=== PATIENT | female | born 1925 | race Caucasian/White ===

== ENCOUNTER 2016-08-04 18:03 | Inpatient (IN) | payer MEDICARE, OTHER ==
[~2016-08-04] VITALS: Ht 157.5 cm; Wt 61.2 kg
[2016-08-04 20:00] VITALS: BP 138/65; RESP 18
[2016-08-04 20:37] VITALS: Ht 157.5 cm; Wt 61.2 kg
[2016-08-04] MEDS ORDERED: DOCUSATE SODIUM 100 MG CAP PO PRN (21:00)
[2016-08-04] MEDS ORDERED: IBUPROFEN 200 MG TAB PO PRN (21:00)
[2016-08-04] MEDS ORDERED: POLYETHYLENE GLYCOL 17 GM PACKET PO PRN (21:00)
[2016-08-04] MEDS ORDERED: IPRATROPIUM (NEB) 0.5 MG/2.5 ML AMP INH PRN (21:00)
[2016-08-04] MEDS: GUAIFENESIN LA 600 MG TABSR PO SCH (21:22)
[2016-08-04] MEDS: POTASSIUM CHLORIDE (SR) 20 MEQ TAB PO SCH (21:22)
[2016-08-04] MEDS: DULOXETINE 30 MG CAP DR PO SCH (21:22)
[2016-08-04] MEDS: RANITIDINE 150 MG TAB PO SCH (21:22)
[2016-08-04] MEDS: ACETAMINOPHEN 325 MG TAB PO PRN (21:22)
[2016-08-04] MEDS: SOTALOL 80 MG TAB PO SCH (21:24)
[2016-08-04] MEDS: NYSTATIN 30 GM POWDER BTL TOP SCH (21:28)
[2016-08-04] MEDS: DICLOFENAC SODIUM 1% GEL 100 GM TUBE TP SCH (21:28)
[2016-08-04] MEDS ORDERED: GLUCAGON 1 MG INJ IM PRN (21:30)
[2016-08-04] MEDS ORDERED: GLUCOSE GEL 15 GRAM TUBE PO PRN ×2 (21:30)
[2016-08-04] MEDS ORDERED: DEXTROSE 50% 50 ML SYRINGE IV PRN ×2 (21:30)
[2016-08-04] MEDS ORDERED: GLUCOSE GEL 15 GRAM TUBE BUCCAL PRN (21:30)
[2016-08-04] MEDS: LEVALBUTEROL (NEB) 0.63 MG/3 ML AMP INH SCH (21:48)
[2016-08-04] MEDS: IPRATROPIUM (NEB) 0.5 MG/2.5 ML AMP INH SCH (21:49)
[2016-08-04] MEDS ORDERED: Insulin NOVOLOG SS MILD Algorithm (SS with meals and bedtime) SC SCH (22:00)
[2016-08-04] MEDS: PRIMIDONE 50 MG TAB PO SCH (22:20)
[2016-08-04] MEDS: CHLORHEXIDINE GLUCONATE 15 ML UD CUP MT SCH (22:20)
[2016-08-05] MEDS: IPRATROPIUM (NEB) 0.5 MG/2.5 ML AMP INH SCH ×4 (02:00→19:27)
[2016-08-05] MEDS: LEVALBUTEROL (NEB) 0.63 MG/3 ML AMP INH SCH ×4 (02:00→19:27)
[2016-08-05 03:29] VITALS: BP 138/65; RESP 19
[2016-08-05 04:25] LABS: ADD UMIC YES; URINE BILIRUBIN (Dip) NEGATIVE (NEGATIVE); URINE BLOOD (Dip) NEGATIVE (NEGATIVE); URINE COLOR YELLOW (YELLOW); URINE GLUCOSE (Dip) NEGATIVE (NEGATIVE); URINE KETONES (Dip) TRACE (NEGATIVE); URINE LEUKOCYTE ESTERASE (Dip) 2+ (NEGATIVE); URINE NITRITE (Dip) NEGATIVE (NEGATIVE); URINE TOTAL PROTEIN (Dip) NEGATIVE (NEGATIVE); URINE UROBILINOGEN (Dip) 0.2 E.U./dL (0.1-1.0)
[2016-08-05 04:39] LABS: BACTERIA,URINE MODERATE; SQUAMOUS EPITHELIAL CELL,UR FEW; URINE RBCS 0-2 /HPF (0)
[2016-08-05] MEDS: LEVOTHYROXINE 50 MCG TAB PO SCH (05:44)
[2016-08-05 05:48] VITALS: BP 131/62; PULSE 73
[2016-08-05] MEDS: FUROSEMIDE 40 MG TAB PO SCH (05:48)
[2016-08-05 06:48] LABS: ALBUMIN 3.1 g/dl (3.3-4.9)
[2016-08-05 06:49] LABS: POTASSIUM 4.8 mmol/L (3.5-5.1)
[2016-08-05 06:51] LABS: BILIRUBIN,INDIRECT 0.1 mg/dl (0-1.1); BILIRUBIN,TOTAL 0.1 mg/dl (0.2-1.3); CREATININE 0.76 mg/dl (0.44-1.00); TOTAL PROTEIN 6.2 g/dl (6.1-8.1)
[2016-08-05 06:52] LABS: CALCIUM 8.8 mg/dl (8.4-10.2)
[2016-08-05] MEDS: Insulin NOVOLOG SS MILD Algorithm (SS with meals and bedtime) SC SCH ×3 (07:05→17:57)
[2016-08-05 08:00] VITALS: BP 125/75; PULSE 78; RESP 18
[2016-08-05] MEDS: GLIMEPIRIDE 2 MG TAB PO SCH (08:29)
[2016-08-05] MEDS: ASPIRIN 81 MG TAB PO SCH (08:30)
[2016-08-05] MEDS: ASCORBIC ACID 500 MG TAB PO SCH (08:30)
[2016-08-05] MEDS: GUAIFENESIN LA 600 MG TABSR PO SCH ×2 (08:44→20:21)
[2016-08-05] MEDS: predniSONE 10 MG TAB PO SCH (08:44)
[2016-08-05] MEDS: PRIMIDONE 50 MG TAB PO SCH ×2 (08:45→20:21)
[2016-08-05] MEDS: CHLORHEXIDINE GLUCONATE 15 ML UD CUP MT SCH ×4 (08:45→20:24)
[2016-08-05] MEDS: PANTOPRAZOLE (EC) 40 MG TAB PO SCH (08:45)
[2016-08-05] MEDS: CYANOCOBALAMIN 500 MCG TAB PO SCH (08:45)
[2016-08-05] MEDS: POLYETHYLENE GLYCOL 17 GM PACKET PO SCH (09:00)
[2016-08-05 09:06] LABS: BASOPHILS % 0.3 % (0.0-2.0); EOSINOPHILS # 0.2 10^3/ul (0.0-0.5); EOSINOPHILS % 1.6 % (0.0-7.0); HEMATOCRIT 30.9 % (37.0-47.0); LYMPHOCYTES # 2.9 10^3/ul (0.8-2.9); LYMPHOCYTES % 23.7 % (15.0-51.0); MEAN CORPUSCULAR HEMOGLOBIN 26.3 pg (29.0-33.0); MEAN CORPUSCULAR HGB CONC 32.4 g/dl (32.0-37.0); MEAN CORPUSCULAR VOLUME 81.1 fl (82.0-101.0); MEAN PLATELET VOLUME 9.6 fl (7.4-10.4); MONOCYTE # 1.9 10^3/ul (0.3-0.9); MONOCYTES % 15.3 % (0.0-11.0); NEUTROPHIL # 7.3 10^3/ul (1.6-7.5); NEUTROPHILS % 59.1 % (39.0-77.0); PLATELET COUNT 298 10^3/UL (140-440); RED BLOOD COUNT 3.81 10^6/ul (4.20-5.40); RED CELL DISTRIBUTION WIDTH 20.1 % (11.5-14.5); UNCORRECTED WBC 12.3 10^3/ul (4.8-10.8); WHITE BLOOD COUNT 12.3 10^3/ul (4.8-10.8)
[2016-08-05] MEDS: CHOLECALCIFEROL 1,000 UNIT TAB PO SCH (09:07)
[2016-08-05] MEDS: POTASSIUM CHLORIDE (SR) 20 MEQ TAB PO SCH ×2 (09:08→20:20)
[2016-08-05] MEDS: SOTALOL 80 MG TAB PO SCH ×2 (09:08→20:21)
[2016-08-05 09:09] LABS: CONDITION 1; LH ANALYZER COMMENTS 1
[2016-08-05] MEDS: METOPROLOL (XL) 100 MG TAB PO SCH (09:09)
[2016-08-05] MEDS: ENOXAPARIN 40 MG/0.4 ML SYG SC SCH (09:14)
[2016-08-05] MEDS: NYSTATIN 30 GM POWDER BTL TOP SCH ×2 (09:15→20:21)
[2016-08-05] MEDS: DICLOFENAC SODIUM 1% GEL 100 GM TUBE TP SCH ×4 (09:16→20:21)
--- NOTE | 2016-08-05 13:06 | CONS ---
DATE OF ADMISSION: 08/04/2016 DATE OF CONSULTATION: 08/05/2016 TYPE OF CONSULTATION: Rehabilitation post-admission physician evaluation REHABILITATION IMPAIRMENT CATEGORY: Steroid myopathy. ACTIVE COMORBIDITIES: 1. Status post chronic obstructive pulmonary disease exacerbation and pneumonia, chronic bronchitis . 2. Degenerative joint disease. 3. Hypertension. 4. Paroxysmal atrial fibrillation. 5. Diabetes mellitus type 2. 6. Anemia of chronic disease. 7. Hypothyroidism. 8. Impairments in self-care and mobility. HISTORY OF PRESENT ILLNESS: The patient is a very pleasant 89-year-old female with a history of mu ltiple medical comorbidities, who was admitted with increasing shortness of breath. The patient not ed to have significant COPD exacerbation, and respiratory failure. She was transferred to [facility]. The patient was noted to have significant proximal muscle weakness and diagnose d with steroid-induced myopathy. The patient has had significant impairments in self-care and mobil ity as compared to baseline, and has been cleared to transfer to the rehabilitation unit for compreh ensive interdisciplinary rehab care. FUNCTIONAL HISTORY: Prior to recent events, she was independent in self-care tasks and mobility. C urrently, she requires minimal to moderate assist for self-care and mobility tasks. I have reviewed the preadmission screen and the patient's current functional status is consistent wi th the preadmission screen. SOCIAL HISTORY: The patient reports living at home with 24-hour caregiver assistance. PAST MEDICAL HISTORY: 1. COPD. 2. Hypothyroidism. 3. Paroxysmal atrial fibrillation. 4. Diabetes mellitus. 5. Hypertension. 6. History of permanent pacemaker placement. CURRENT MEDICATIONS: 1. Vitamin C. 2. Aspirin 81 mg p.o. daily. 3. Zithromax 500 p.o. q. Wednesday, , Wednesday. 4. Vitamin D. 5. Vitamin B12. 6. Voltaren topically. 7. Colace. 8. Cymbalta 30 mg p.o. at bedtime. 9. Lovenox 40 mg subcutaneous daily. 10. Lasix 40 mg p.o. daily. 11. Amaryl 1 mg p.o. q.a.m. 12. Motrin p.r.n. 13. Insulin sliding scale. 14. Levalbuterol inhaler. 15. Synthroid 50 mcg p.o. daily. 16. Toprol-XL 100 mg p.o. daily. 17. Protonix 40 mg p.o. q.a.m. 18. MiraLax p.r.n. 19. Potassium chloride 20 mEq p.o. b.i.d. 20. Prednisone 10 mg p.o. daily. 21. Primidone 50 mg p.o. b.i.d. 22. Rifampin 600 mg p.o. q. Wednesday, , Wednesday. 23. Betapace 80 mg p.o. q.12h. ALLERGIES: CODEINE. PHYSICAL EXAMINATION: VITAL SIGNS: The patient is currently afebrile with stable vital signs. HEENT: The extraocular motions appear intact. The oropharynx is clear. NECK: Supple. LUNGS: Clear anteriorly. CARDIAC: S1, S2. ABDOMEN: Soft, nontender, positive bowel sounds. NEUROLOGIC: She is awake and alert. She is oriented to person, hospital and date. She will follow simple 1-step commands. She demonstrates antigravity strength in bilateral upper extremity and low er extremity, but notable weakness in proximal muscles. She does have impaired dynamic balance. PLAN: The patient has been admitted for comprehensive interdisciplinary acute rehab and is anticipa genaro to tolerate 3 hours of daily therapy in divided doses for at least 5/7 days a week. The treatme nt plan will include: 1. Physical therapy to focus on bed mobility, transfers, and household ambulation with the goal of having the patient reach a standby assist level. 2. Occupational therapy to focus on hygiene, grooming, dressing, bathing, and toileting activities with the goal of having the patient reach standby assist level. 3. Rehabilitation nursing for carryover of therapeutic interventions, the goal of continent of amanda l and bladder, and the goal of patient and family and caregiver education with regards to the aforem entioned issues. ESTIMATED LENGTH OF STAY: 14 days. DISPOSITION GOAL: Home with supervision. REHABILITATION BARRIER: Weakness. INTERVENTION FOR BARRIER: Interdisciplinary approach. I acknowledge that I performed a full physical examination on this patient within 24 hours of admiss ion to the rehabilitation unit. I believe the patient is a good candidate for comprehensive interdi sciplinary rehab care and is anticipated to make reasonable goals in a reasonable period of time as outlined above. Dictated By: REED BAEZ/BENJAMIN Conf#: [id number] [facility]#: [id number]
--- NOTE | 2016-08-05 14:35 | HP ---
DATE OF ADMISSION: 08/04/2016 CHIEF COMPLAINT: Respiratory failure, weakness. 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 The patient was then subsequently transferred to [facility] for respiratory care. During her hospital course the patient received IV steroids and antibiotic the rapy for her MAC. The patient, however, developed muscle weakness and steroid-induced myopathy. As a result, the patient after being stabilized at [facility] was transferred to [facility] acute rehab for continued care. Upon my evaluation of patient at this time, she is currently stable. She denies any fevers, chills, nausea, vomiting. She denies any shortness of breath. The patient otherwise is in no acute distre ss. PAST MEDICAL HISTORY: As stated above, history of COPD exacerbation, history of hypersensitive pneu monitis, history of hypothyroidism, history of paroxysmal AFib, history of arrhythmia, status post p acemaker. PAST SURGICAL HISTORY: Status post pacemaker placement. ALLERGIES: THE PATIENT HAS MULTIPLE DRUG ALLERGIES. PLEASE SEE LIST. MEDICATIONS: Patient medications have been reviewed and reconciled. FAMILY HISTORY: No family history of kidney disease or heart disease. SOCIAL HISTORY: Does not drink, smoke or do drugs. REVIEW OF SYSTEMS: A 14-point review of systems was conducted. Pertinent positives stated in HPI, otherwise negative. PHYSICAL EXAMINATION: VITAL SIGNS: Blood pressure is 125/75, respiration 18, pulse 78, temperature 98.1. HEENT: Head is normocephalic. Pupils are reactive to light. NECK: Supple. HEART: Regular rate. LUNGS: Show diminished breath sounds at base. ABDOMEN: Soft, nontender to palpation. No rebound or guarding. EXTREMITIES: Negative for clubbing, cyanosis, no edema. DERMATOLOGIC: No rashes. MUSCULOSKELETAL: No joint effusions. NEUROLOGIC: General weakness, no obvious focal deficits. LABORATORY DATA: Shows sodium 137, potassium 4.8, chloride 98, BUN 27, creatinine 0.76. White coun t 12.3, hemoglobin 10.0, hematocrit 30.9, platelet count 298. ASSESSMENT AND PLAN: 1. Acute respiratory failure secondary to chronic obstructive pulmonary disease exacerbation. The patient is currently doing well, stable on 2 liters nasal cannula. Continue current treatment plan. Continue supplemental oxygen. Continue nebulizer therapy. Continue prednisone wean off slowly. 2. Mycobacterium avium infection with chronic bronchitis. Currently stable. Continue medical amara gement with . Continue primidone. Continue azithromycin. Continue ethambutol. 3. Diabetes. Continue Accu-Cheks, insulin sliding scale. Continue Amaryl. 4. Hypertension. Continue current blood pressure regimen. 5. Anemia. Continue to monitor H and H levels. 6. Paroxysmal atrial fibrillation, currently paced. Continue current medical management. 7. General debility. Continue PT, OT. 8. Steroid induced myopathy. Continue physical therapy. Continue to wean down steroids. 9. Depression. Continue Cymbalta. 10. History of diastolic heart failure. The patient is clinically stable. Continue medical manage ment. 11. Hypothyroidism. Continue Synthroid. 12. Gastrointestinal and deep venous thrombosis prophylaxis. Continue proton pump inhibitor and Lo venox. 13. Leukocytosis, likely due to steroids. Continue to monitor. Please note I spent up to 30 minutes of face to face time with this patient, discussing code status. The patient is FULL CODE. Dictated By: BAILEY JEAN/BENJAMIN Conf#: [id number] DID#: [id number]
[2016-08-05 20:00] VITALS: BP 126/54; RESP 18
[2016-08-05] MEDS: DULOXETINE 30 MG CAP DR PO SCH (20:20)
[2016-08-05] MEDS: RANITIDINE 150 MG TAB PO SCH (20:21)
[2016-08-05] MEDS: ACETAMINOPHEN 325 MG TAB PO PRN (20:31)
[2016-08-06] MEDS: IPRATROPIUM (NEB) 0.5 MG/2.5 ML AMP INH SCH ×4 (01:25→20:39)
[2016-08-06] MEDS: LEVALBUTEROL (NEB) 0.63 MG/3 ML AMP INH SCH ×4 (01:25→20:39)
[2016-08-06] MEDS: LEVOTHYROXINE 50 MCG TAB PO SCH (05:59)
[2016-08-06] MEDS: FUROSEMIDE 40 MG TAB PO SCH (06:00)
[2016-08-06 06:01] VITALS: BP 120/59; PULSE 79
[2016-08-06] MEDS: Insulin NOVOLOG SS MILD Algorithm (SS with meals and bedtime) SC SCH ×3 (07:05→17:05)
[2016-08-06 07:30] VITALS: BP 110/54; RESP 20
[2016-08-06 08:14] LABS: BASOPHILS % 0.4 % (0.0-2.0); EOSINOPHILS # 0.2 10^3/ul (0.0-0.5); EOSINOPHILS % 2.3 % (0.0-7.0); HEMOGLOBIN 9.9 g/dl (12.0-16.0); LYMPHOCYTES # 2.7 10^3/ul (0.8-2.9); LYMPHOCYTES % 27.3 % (15.0-51.0); MEAN CORPUSCULAR HEMOGLOBIN 25.4 pg (29.0-33.0); MEAN CORPUSCULAR HGB CONC 30.9 g/dl (32.0-37.0); MEAN CORPUSCULAR VOLUME 82.1 fl (82.0-101.0); MEAN PLATELET VOLUME 10.9 fl (7.4-10.4); MONOCYTE # 1.5 10^3/ul (0.3-0.9); MONOCYTES % 15.4 % (0.0-11.0); NEUTROPHIL # 5.3 10^3/ul (1.6-7.5); NEUTROPHILS % 53.2 % (39.0-77.0); PLATELET COUNT 306 10^3/UL (140-415); RED CELL DISTRIBUTION WIDTH 19.4 % (11.5-14.5); WHITE BLOOD COUNT 9.9 10^3/ul (4.8-10.8)
[2016-08-06 08:23] LABS: POTASSIUM 4.2 mmol/L (3.5-5.1)
[2016-08-06 08:26] LABS: CREATININE 0.79 mg/dl (0.44-1.00); PHOSPHORUS 4.2 mg/dl (2.5-4.9)
[2016-08-06 08:27] LABS: MAGNESIUM 1.8 mg/dl (1.7-2.5)
[2016-08-06] MEDS: POTASSIUM CHLORIDE (SR) 20 MEQ TAB PO SCH ×2 (08:31→20:25)
[2016-08-06] MEDS: ASCORBIC ACID 500 MG TAB PO SCH (08:31)
[2016-08-06] MEDS: GLIMEPIRIDE 2 MG TAB PO SCH (08:33)
[2016-08-06] MEDS: ETHAMBUTOL 400 MG TAB PO SCH (08:33)
[2016-08-06] MEDS: RIFAMPIN 300 MG CAP PO SCH (08:34)
[2016-08-06] MEDS: SOTALOL 80 MG TAB PO SCH ×2 (08:35→20:24)
[2016-08-06] MEDS: PRIMIDONE 50 MG TAB PO SCH ×2 (08:35→20:24)
[2016-08-06] MEDS: AZITHROMYCIN 250 MG TAB PO SCH (08:36)
[2016-08-06] MEDS: GUAIFENESIN LA 600 MG TABSR PO SCH ×2 (08:36→20:24)
[2016-08-06] MEDS: CYANOCOBALAMIN 500 MCG TAB PO SCH (08:36)
[2016-08-06] MEDS: PANTOPRAZOLE (EC) 40 MG TAB PO SCH (08:37)
[2016-08-06] MEDS: predniSONE 10 MG TAB PO SCH (08:37)
[2016-08-06] MEDS: POLYETHYLENE GLYCOL 17 GM PACKET PO SCH (08:37)
[2016-08-06] MEDS: NYSTATIN 30 GM POWDER BTL TOP SCH ×2 (08:37→20:25)
[2016-08-06] MEDS: CHOLECALCIFEROL 1,000 UNIT TAB PO SCH (08:37)
[2016-08-06] MEDS: ASPIRIN 81 MG TAB PO SCH (08:38)
[2016-08-06] MEDS: METOPROLOL (XL) 100 MG TAB PO SCH (08:39)
[2016-08-06] MEDS: DICLOFENAC SODIUM 1% GEL 100 GM TUBE TP SCH ×4 (08:41→20:25)
[2016-08-06] MEDS: ENOXAPARIN 40 MG/0.4 ML SYG SC SCH (08:50)
[2016-08-06] MEDS: CHLORHEXIDINE GLUCONATE 15 ML UD CUP MT SCH ×4 (08:52→20:30)
--- NOTE | 2016-08-06 11:03 | PN ---
DATE: 08/06/2016 SUBJECTIVE: The patient is stable, no acute events overnight. No fevers, chills, nausea, vomiting, no shortness of breath. OBJECTIVE: VITAL SIGNS: Blood pressure is 120/59, respiration 18, pulse 79, temperature 98.7. HEENT: Head is normocephalic. NECK: Supple. HEART: Regular rate. LUNGS: Show diminished breath sounds at the base. ABDOMEN: Soft, nontender to palpation. No rebound or guarding. EXTREMITIES: Negative for clubbing, cyanosis, no edema. DERMATOLOGIC: No rashes. MUSCULOSKELETAL: No joint effusions. NEUROLOGIC: No change in exam. MEDICATIONS: The patient's medications have been reviewed. LABORATORY DATA: Shows a white count of 9.9, hemoglobin 9.9, hematocrit 32.0, platelet count is 306 . Sodium 137, potassium 4.2, BUN 23, creatinine 0.79. ASSESSMENT AND PLAN: 1. Acute respiratory failure secondary to chronic obstructive pulmonary disease exacerbation. The patient is currently stable. Continue current medical management. Continue nebulizers, nasal cannu la, supplemental oxygen. 2. Mycobacterium avium infection and chronic bronchitis. The patient currently stable. Continue c urrent medical management with ethambutol, continue Primidone, continue azithromycin, continue rifam pin. Will place an ID consult for evaluation. 3. Diabetes. Continue Accu-Cheks, insulin sliding scale. Continue Amaryl. 4. Hypertension. Continue current blood pressure regimen. 5. Anemia. Continue to monitor hemoglobin and hematocrit levels. 6. Paroxysmal atrial fibrillation, currently sinus rhythm. Continue medical management. 7. Steroid-induced myopathy. Continue physical therapy. Continue to wean off steroids. 8. Depression. Continue Cymbalta. 9. History of diastolic heart failure, currently stable. Continue medical management. 10. Hypothyroidism. Continue Synthroid. 11. Leukocytosis, resolved. 12. General debility. Continue PT, OT. 13. Gastrointestinal and deep venous thrombosis prophylaxis. Continue proton pump inhibitor and Lo venox. Dictated By: BAILEY JEAN/BENJAMIN Conf#: [id number] DID#: [id number]
--- NOTE | 2016-08-06 13:40 | CONS ---
Date/Time of Note Date/Time of Note DATE: 08/06/16 TIME: 13:39 Consult Date/Type/Reason Admit Date/Time Aug 04, 2016 at 18:33 Initial Consult Date Subjective No new complaints Objective pulm- cta min assist ambulation Vital Signs Date Time Temp Pulse Resp B/P Pulse Ox O2 Delivery O2 Flow Rate FiO2 08/06/16 09:00 70 17 96 Nasal Cannula 2.0 08/06/16 07:30 97.8 110/54 Intake and Output 08/05/16 08/05/16 08/06/16 15:00 23:00 07:00 Intake Total 500 ml 400 ml Balance 500 ml 400 ml Results/Medications Result Diagram: 08/06/16 0718 08/06/16 0715 Results 24 hrs Laboratory Tests Test 08/05/16 17:10 08/05/16 20:29 08/06/16 07:15 08/06/16 07:18 Bedside Glucose 155 183 Anion Gap 14 Blood Urea Nitrogen 23 H Calcium Level 9.0 Carbon Dioxide Level 30 Chloride Level 97 Creatinine 0.79 Glucose Level 121 Magnesium Level 1.8 Phosphorus Level 4.2 Potassium Level 4.2 Sodium Level 137 Basophils # 0.0 Basophils % 0.4 Eosinophils # 0.2 Eosinophils % 2.3 Hematocrit 32.0 L Hemoglobin 9.9 L Lymphocytes # 2.7 Lymphocytes % 27.3 Mean Corpuscular Hemoglobin 25.4 L Mean Corpuscular Hemoglobin Concent 30.9 L Mean Corpuscular Volume 82.1 Mean Platelet Volume 10.9 H Monocytes # 1.5 H Monocytes % 15.4 H Neutrophils # 5.3 Neutrophils % 53.2 Nucleated Red Blood Cells # 0.0 Nucleated Red Blood Cells % 0.0 Platelet Count 306 Red Blood Count 3.90 L Red Cell Distribution Width 19.4 H White Blood Count 9.9 Test 08/06/16 07:46 08/06/16 12:09 Bedside Glucose 176 173 Medications Current Medications Acetaminophen (Tylenol Tab) 650 mg Q6H PRN PO PAIN AND OR ELEVATED TEMP Last administered on 08/05/16 20:31; Admin Dose 650 MG; Start 08/04/16 at 21:00 Ascorbic Acid (Vitamin C) 1,000 mg DAILY PO Last administered on 08/06/16 08: 31; Admin Dose 1,000 MG; Start 08/05/16 at 09:00 Aspirin (Aspirin) 81 mg DAILY PO Last administered on 08/06/16 08:38; Admin Dose 81 MG; Start 08/05/16 at 09:00 Azithromycin (Zithromax) 500 mg TuThSa@09 PO Last administered on 08/06/16 08: 36; Admin Dose 500 MG; Start 08/06/16 at 09:00 Chlorhexidine Gluconate (Peridex) 15 ml QID MT Last administered on 08/06/16 12:29; Admin Dose 15 ML; Start 08/04/16 at 21:00 Cholecalciferol (Vitamin D) 1,000 unit DAILY PO Last administered on 08/06/16 08:37; Admin Dose 1,000 UNIT; Start 08/05/16 at 09:00 Cyanocobalamin (Vitamin B12) 1,000 mcg DAILY PO Last administered on 08/06/16 08:36; Admin Dose 1,000 MCG; Start 08/05/16 at 09:00 Diclofenac Sodium (Voltaren 1% Gel) 1 gm QID TP Last administered on 08/06/16 12:29; Admin Dose 1 GM; Start 08/04/16 at 21:00 Docusate Sodium (Colace) 100 mg Q8H PRN PO CONSTIPATION; Start 08/04/16 at 21: 00 Duloxetine HCl (Cymbalta) 30 mg HS PO Last administered on 08/05/16 20:20; Admin Dose 30 MG; Start 08/04/16 at 21:00 Enoxaparin Sodium (Lovenox) 40 mg DAILY SC Last administered on 08/06/16 08:50 ; Admin Dose 40 MG; Start 08/05/16 at 09:00 Ethambutol HCl (Myambutol) 1,200 mg TuThSa@09 PO Last administered on 08:33; Admin Dose 1,200 MG; Start 08/06/16 at 09:00 Furosemide (Lasix) 40 mg DAILY@06 PO Last administered on 08/06/16 06:00; Admin Dose 40 MG; Start 08/05/16 at 06:00 Guaifenesin (Mucinex) 1,200 mg BID PO Last administered on 08/06/16 08:36; Admin Dose 1,200 MG; Start 08/04/16 at 21:00 Ibuprofen (Motrin) 200 mg HS PRN PO ARTHRITIS PAIN; Start 08/04/16 at 21:00 Levothyroxine Sodium (Synthroid) 50 mcg DAILY@06 PO Last administered on 05:59; Admin Dose 50 MCG; Start 08/05/16 at 06:00 Metoprolol Succinate (Toprol Xl) 100 mg DAILY PO Last administered on 09:09; Admin Dose 100 MG; Start 08/05/16 at 09:00 Nystatin (Nystatin Powder) 1 applic BID TOP Last administered on 08/06/16 08: 37; Admin Dose 1 APPLIC; Start 08/04/16 at 21:00 Polyethylene Glycol (Miralax) 17 gm DAILY PO Last administered on 08/06/16 08: 37; Admin Dose 17 GM; Start 08/05/16 at 09:00 Polyethylene Glycol (Miralax) 17 gm DAILY PRN PO CONSTIPATION; Start 08/04/16 at 21:00 Potassium Chloride (Klor-Con 20) 20 meq BID PO Last administered on 08/06/16 08:31; Admin Dose 20 MEQ; Start 08/04/16 at 21:00 Prednisone (Prednisone) 10 mg DAILY PO Last administered on 08/06/16 08:37; Admin Dose 10 MG; Start 08/05/16 at 09:00 Primidone (Mysoline) 50 mg BID PO Last administered on 08/06/16 08:35; Admin Dose 50 MG; Start 08/04/16 at 22:00 Ranitidine HCl (Zantac) 150 mg HS PO Last administered on 08/05/16 20:21; Admin Dose 150 MG; Start 08/04/16 at 21:00 Sotalol HCl (Betapace) 80 mg Q12 PO Last administered on 08/05/16 20:21; Admin Dose 80 MG; Start 08/04/16 at 21:00 Al Hydrox/Mg Hydrox/Simethicone (Mag-Al Plus) 30 ml Q4H PRN PO GASTROINTESTINAL UPSET; Start 08/04/16 at 21:00 Miscellaneous Information 1 ea NOTE XX ; Start 08/04/16 at 21:30 Glucose (Glutose) 15 gm Q15M PRN PO DECREASED GLUCOSE; Start 08/04/16 at 21:30 Glucose (Glutose) 22.5 gm Q15M PRN PO DECREASED GLUCOSE; Start 08/04/16 at 21: 30 Dextrose (D50w Syringe) 25 ml Q15M PRN IV DECREASED GLUCOSE; Start 08/04/16 at 21:30 Dextrose (D50w Syringe) 50 ml Q15M PRN IV DECREASED GLUCOSE; Start 08/04/16 at 21:30 Glucagon (Glucagen) 1 mg Q15M PRN IM DECREASED GLUCOSE; Start 08/04/16 at 21:30 Glucose (Glutose) 15 gm Q15M PRN BUCCAL DECREASED GLUCOSE; Start 08/04/16 at 21 :30 Rifampin (Rifampin) 600 mg TuThSa PO Last administered on 08/06/16t 08:34; Admin Dose 600 MG; Start 08/06/16 at 09:00 Assessment/Plan Additional Assessment/Plan Rehab- Steroid myopathy. Increase activities as tolerated Status post chronic obstructive pulmonary disease exacerbation and pneumonia, chronic bronchitis. Degenerative joint disease. Hypertension. Paroxysmal atrial fibrillation-cardiology follow up Diabetes mellitus type 2. Anemia of chronic disease. Hypothyroidism. REED FERNANDES MD Aug 06, 2016 13:40
[2016-08-06 20:00] VITALS: BP 104/55; RESP 20
[2016-08-06] MEDS: RANITIDINE 150 MG TAB PO SCH (20:24)
[2016-08-06] MEDS: DULOXETINE 30 MG CAP DR PO SCH (20:24)
[2016-08-06] MEDS: ACETAMINOPHEN 325 MG TAB PO PRN (20:24)
[2016-08-07] MEDS: LEVALBUTEROL (NEB) 0.63 MG/3 ML AMP INH SCH ×4 (02:00→20:14)
[2016-08-07] MEDS: IPRATROPIUM (NEB) 0.5 MG/2.5 ML AMP INH SCH ×4 (02:00→20:14)
[2016-08-07] MEDS: PANTOPRAZOLE (EC) 40 MG TAB PO SCH (06:09)
[2016-08-07] MEDS: LEVOTHYROXINE 50 MCG TAB PO SCH (06:09)
[2016-08-07] MEDS: FUROSEMIDE 40 MG TAB PO SCH (06:09)
[2016-08-07] MEDS: Insulin NOVOLOG SS MILD Algorithm (SS with meals and bedtime) SC SCH ×3 (07:05→17:42)
[2016-08-07 07:30] VITALS: BP 112/90; RESP 20
[2016-08-07] MEDS: NYSTATIN 30 GM POWDER BTL TOP SCH ×2 (08:40→20:42)
[2016-08-07] MEDS: POLYETHYLENE GLYCOL 17 GM PACKET PO SCH (08:40)
[2016-08-07] MEDS: DICLOFENAC SODIUM 1% GEL 100 GM TUBE TP SCH ×4 (08:40→20:42)
[2016-08-07] MEDS: ASPIRIN 81 MG TAB PO SCH (08:41)
[2016-08-07] MEDS: CHLORHEXIDINE GLUCONATE 15 ML UD CUP MT SCH ×4 (08:41→20:42)
[2016-08-07] MEDS: POTASSIUM CHLORIDE (SR) 20 MEQ TAB PO SCH ×2 (08:42→20:41)
[2016-08-07] MEDS: ASCORBIC ACID 500 MG TAB PO SCH (08:42)
[2016-08-07] MEDS: GLIMEPIRIDE 2 MG TAB PO SCH (08:42)
[2016-08-07] MEDS: CYANOCOBALAMIN 500 MCG TAB PO SCH (08:42)
[2016-08-07] MEDS: predniSONE 10 MG TAB PO SCH (08:42)
[2016-08-07] MEDS: PRIMIDONE 50 MG TAB PO SCH ×2 (08:43→20:41)
[2016-08-07] MEDS: CHOLECALCIFEROL 1,000 UNIT TAB PO SCH (08:43)
[2016-08-07] MEDS: GUAIFENESIN LA 600 MG TABSR PO SCH ×2 (08:43→20:41)
[2016-08-07] MEDS: ENOXAPARIN 40 MG/0.4 ML SYG SC SCH (08:44)
[2016-08-07] MEDS: SOTALOL 80 MG TAB PO SCH ×2 (08:45→20:41)
[2016-08-07] MEDS: METOPROLOL (XL) 100 MG TAB PO SCH (08:46)
--- NOTE | 2016-08-07 10:50 | PN ---
DATE: 08/07/2016 SUBJECTIVE: The patient is stable, no acute events overnight. No fevers, chills, nausea, vomiting. No shortness breath. OBJECTIVE: VITAL SIGNS: Blood pressure 104/55, respirations 20, pulse 74, temperature 99.2. HEENT: Head is normocephalic. NECK: Supple. HEART: Regular rate. LUNGS: Show diminished breath sounds at the bases. ABDOMEN: Soft, nontender to palpation. No rebound or guarding. EXTREMITIES: Negative for clubbing, cyanosis. No edema. DERMATOLOGIC: No rashes. MUSCULOSKELETAL: No joint effusions. NEUROLOGIC: No change in exam. MEDICATIONS: The patient's medications have been reviewed. LABORATORY DATA: Has been reviewed. ASSESSMENT AND PLAN: 1. Acute respiratory failure secondary to chronic obstructive pulmonary disease exacerbation. The patient is currently stable. Continue medical management. 2. Mycobacterium avium infection and chronic bronchitis. The patient is currently stable. Continu e current medical management. We will place an ID consult for evaluation. 3. Diabetes. Continue Accu-Cheks and sliding scale. 4. Hypertension. Continue current blood pressure regimen. 5. Anemia. Continue to monitor hemoglobin and hematocrit levels. 6. History of paroxysmal atrial fibrillation, status post pacemaker. We will place a cardiology co nsult to evaluate underlying pacemaker as patient feels there have been fluctuations and skipped natalia ts. 7. Steroid-induced myopathy. Continue physical therapy. 8. Depression. Continue Cymbalta. 9. History of diastolic heart failure, currently stable. Continue medical management. 10. Hypothyroidism. Continue Synthroid. 11. General debility. Continue PT, OT. 12. Gastrointestinal and deep venous thrombosis prophylaxis. Continue proton pump inhibitor and Lo venox. Dictated By: BAILEY JEAN/BENJAMIN Conf#: [id number] DID#: [id number]
--- NOTE | 2016-08-07 11:43 | CONS ---
Date/Time of Note Date/Time of Note DATE: 08/07/16 TIME: 11:39 Consult Date/Type/Reason Admit Date/Time Aug 04, 2016 at 18:33 Subjective Reports feeling better Objective pulm-cta abd-soft,nt min/cga ambulation-80 feet Vital Signs Date Time Temp Pulse Resp B/P Pulse Ox O2 Delivery O2 Flow Rate FiO2 08/07/16 08:00 Nasal Cannula 2.0 08/07/16 07:56 70 20 95 08/07/16 07:30 98.5 112/90 Intake and Output 08/06/16 08/06/16 08/07/16 15:00 23:00 07:00 Intake Total 360 ml 240 ml Balance 360 ml 240 ml Results/Medications Result Diagram: 08/06/1618 08/06/1615 Results 24 hrs Laboratory Tests Test 08/06/16 12:09 08/06/16 17:32 08/07/16 07:37 Bedside Glucose 173 79 117 Medications Current Medications Acetaminophen (Tylenol Tab) 650 mg Q6H PRN PO PAIN AND OR ELEVATED TEMP Last administered on 08/06/16 20:24; Admin Dose 650 MG; Start 08/04/16 at 21:00 Ascorbic Acid (Vitamin C) 1,000 mg DAILY PO Last administered on 08/07/16 08: 42; Admin Dose 1,000 MG; Start 08/05/16 at 09:00 Aspirin (Aspirin) 81 mg DAILY PO Last administered on 08/07/16 08:41; Admin Dose 81 MG; Start 08/05/16 at 09:00 Azithromycin (Zithromax) 500 mg TuThSa@09 PO Last administered on 08/06/16 08: 36; Admin Dose 500 MG; Start 08/06/16 at 09:00 Chlorhexidine Gluconate (Peridex) 15 ml QID MT Last administered on 08/07/16 08:41; Admin Dose 15 ML; Start 08/04/16 at 21:00 Cholecalciferol (Vitamin D) 1,000 unit DAILY PO Last administered on 08/07/16 08:43; Admin Dose 1,000 UNIT; Start 08/05/16 at 09:00 Cyanocobalamin (Vitamin B12) 1,000 mcg DAILY PO Last administered on 08/07/16 08:42; Admin Dose 1,000 MCG; Start 08/05/16 at 09:00 Diclofenac Sodium (Voltaren 1% Gel) 1 gm QID TP Last administered on 08/07/16 08:40; Admin Dose 1 GM; Start 08/04/16 at 21:00 Docusate Sodium (Colace) 100 mg Q8H PRN PO CONSTIPATION; Start 08/04/16 at 21: 00 Duloxetine HCl (Cymbalta) 30 mg HS PO Last administered on 08/06/16 20:24; Admin Dose 30 MG; Start 08/04/16 at 21:00 Enoxaparin Sodium (Lovenox) 40 mg DAILY SC Last administered on 08/07/16 08:44 ; Admin Dose 40 MG; Start 08/05/16 at 09:00 Ethambutol HCl (Myambutol) 1,200 mg TuThSa@09 PO Last administered on 08:33; Admin Dose 1,200 MG; Start 08/06/16 at 09:00 Furosemide (Lasix) 40 mg DAILY@06 PO Last administered on 08/07/16 06:09; Admin Dose 40 MG; Start 08/05/16 at 06:00 Guaifenesin (Mucinex) 1,200 mg BID PO Last administered on 08/07/16 08:43; Admin Dose 1,200 MG; Start 08/04/16 at 21:00 Ibuprofen (Motrin) 200 mg HS PRN PO ARTHRITIS PAIN; Start 08/04/16 at 21:00 Levothyroxine Sodium (Synthroid) 50 mcg DAILY@06 PO Last administered on 06:09; Admin Dose 50 MCG; Start 08/05/16 at 06:00 Metoprolol Succinate (Toprol Xl) 100 mg DAILY PO Last administered on 09:09; Admin Dose 100 MG; Start 08/05/16 at 09:00 Nystatin (Nystatin Powder) 1 applic BID TOP Last administered on 08/07/16 08: 40; Admin Dose 1 APPLIC; Start 08/04/16 at 21:00 Polyethylene Glycol (Miralax) 17 gm DAILY PO Last administered on 08/07/16 08: 40; Admin Dose 17 GM; Start 08/05/16 at 09:00 Polyethylene Glycol (Miralax) 17 gm DAILY PRN PO CONSTIPATION; Start 08/04/16 at 21:00 Potassium Chloride (Klor-Con 20) 20 meq BID PO Last administered on 08/07/16 08:42; Admin Dose 20 MEQ; Start 08/04/16 at 21:00 Prednisone (Prednisone) 10 mg DAILY PO Last administered on 08/07/16 08:42; Admin Dose 10 MG; Start 08/05/16 at 09:00 Primidone (Mysoline) 50 mg BID PO Last administered on 08/07/16 08:43; Admin Dose 50 MG; Start 08/04/16 at 22:00 Ranitidine HCl (Zantac) 150 mg HS PO Last administered on 08/06/16 20:24; Admin Dose 150 MG; Start 08/04/16 at 21:00 Sotalol HCl (Betapace) 80 mg Q12 PO Last administered on 08/06/16 20:24; Admin Dose 80 MG; Start 08/04/16 at 21:00 Al Hydrox/Mg Hydrox/Simethicone (Mag-Al Plus) 30 ml Q4H PRN PO GASTROINTESTINAL UPSET; Start 08/04/16 at 21:00 Miscellaneous Information 1 ea NOTE XX ; Start 08/04/16 at 21:30 Glucose (Glutose) 15 gm Q15M PRN PO DECREASED GLUCOSE; Start 08/04/16 at 21:30 Glucose (Glutose) 22.5 gm Q15M PRN PO DECREASED GLUCOSE; Start 08/04/16 at 21: 30 Dextrose (D50w Syringe) 25 ml Q15M PRN IV DECREASED GLUCOSE; Start 08/04/16 at 21:30 Dextrose (D50w Syringe) 50 ml Q15M PRN IV DECREASED GLUCOSE; Start 08/04/16 at 21:30 Glucagon (Glucagen) 1 mg Q15M PRN IM DECREASED GLUCOSE; Start 08/04/16 at 21:30 Glucose (Glutose) 15 gm Q15M PRN BUCCAL DECREASED GLUCOSE; Start 08/04/16 at 21 :30 Rifampin (Rifampin) 600 mg TuThSa PO Last administered on 08/06/16 08:34; Admin Dose 600 MG; Start 08/06/16 at 09:00 Assessment/Plan Additional Assessment/Plan Rehab- Steroid myopathy. Patient making steady progress with rehab program Status post chronic obstructive pulmonary disease exacerbation and pneumonia, chronic bronchitis. Degenerative joint disease. Hypertension. Paroxysmal atrial fibrillation-cardiology follow up Diabetes mellitus type 2. Anemia of chronic disease. Hypothyroidism. REED FERNANDES MD Aug 07, 2016 11:43
--- NOTE | 2016-08-07 14:09 | CONS ---
DATE OF ADMISSION: 08/04/2016 DATE OF CONSULTATION: 08/07/2016 TYPE OF CONSULTATION: Infectious Disease. REASON FOR CONSULTATION: Antibiotic management. HISTORY OF PRESENT ILLNESS: Parisa Romero is an 89-year-old female who was admitted to [facility] with respiratory failure and weakness. Her past problems include: 1. COPD. 2. Hypersensitivity pneumonitis. 3. Hypothyroidism. 4. Paroxysmal atrial fibrillation. 5. History of pacemaker placement. 6. Hypertension. The patient was diagnosed with pulmonary Mycobacterium avium intracellulare complex [facility]. She was transferred to [facility]. She received IV steroids and antibiotic th erapy for her MAC. She developed muscle weakness and steroid-induced myopathy. She therefore was t ransferred to [facility] for continued care. PAST MEDICAL HISTORY: Operations as outlined. Status post pacemaker placement. FAMILY HISTORY: Noncontributory. SOCIAL HISTORY: She does not smoke, drink or abuse drugs. ALLERGIES: SHE HAS MULTIPLE DRUG ALLERGIES. PLEASE SEE LIST. MEDICATIONS: Per chart. REVIEW OF SYSTEMS: Noncontributory. PHYSICAL EXAMINATION: GENERAL: The patient is a well-developed, well-nourished, frail female who is awake, responsive, in no acute distress. VITAL SIGNS: Stable. She is afebrile. SKIN: Without generalized rash. HEENT: Within normal limits. NECK: Supple. LYMPH NODES: None palpable. CHEST: Decreased breath sounds at the bases. HEART: Without murmur or gallop. ABDOMEN: Soft, nontender, without organosplenomegaly or masses. EXTREMITIES: Without cyanosis, clubbing, or edema. RECTAL AND GENITAL: Deferred. NEUROLOGIC: No focal neurological abnormalities. LABORATORY DATA: Shows white count of 12.3, H and H of 10 and 30.9, platelet count 298,000. BUN an d creatinine 27/0.76. IMPRESSION AND PLAN: The patient has acute respiratory failure secondary to chronic obstructive pul monary disease. She is on azithromycin and ethambutol for her Mycobacterium avium intracellulare. She is on azithromycin, ethambutol and rifampin. She is also on prednisone for her chronic obstruc tive pulmonary disease. Will continue her on current therapy. I will dictate my findings to Dr. Ra moy. I agree with the current regimen for Mycobacterium avium intracellulare. She did have a pieter an catch urine for enterococcus and staph species. Her white count is 9.9. We may want to add vanc omycin to her regimen, pharmacy to dose. Emergency Room urine shows 2+ leukocyte esterase and 5 to 10 white cells per high powered field and she is fairly asymptomatic. I think I will repeat the uri ne culture. I will dictate my findings to Dr. Terrazas. Dictated By: LATOYA PITT MD, JD/BENJAMIN Conf#: [id number] DID#: [id number]
[2016-08-07 20:00] VITALS: BP 132/60; RESP 18
[2016-08-07] MEDS: ACETAMINOPHEN 325 MG TAB PO PRN (20:40)
[2016-08-07] MEDS: RANITIDINE 150 MG TAB PO SCH (20:41)
[2016-08-07] MEDS: DULOXETINE 30 MG CAP DR PO SCH (20:41)
[2016-08-07] MEDS: AL HYDROX/MG HYDROX/SIMETH 30 ML CUP PO PRN (22:00)
[2016-08-08] MEDS: LEVALBUTEROL (NEB) 0.63 MG/3 ML AMP INH SCH ×4 (02:00→20:34)
[2016-08-08] MEDS: IPRATROPIUM (NEB) 0.5 MG/2.5 ML AMP INH SCH ×4 (02:00→20:34)
[2016-08-08] MEDS: LEVOTHYROXINE 50 MCG TAB PO SCH (05:57)
[2016-08-08] MEDS: PANTOPRAZOLE (EC) 40 MG TAB PO SCH (05:57)
[2016-08-08] MEDS: FUROSEMIDE 40 MG TAB PO SCH (06:21)
[2016-08-08] MEDS: Insulin NOVOLOG SS MILD Algorithm (SS with meals and bedtime) SC SCH ×3 (07:05→17:05)
--- NOTE | 2016-08-08 08:01 | CONS ---
DATE OF ADMISSION: 08/04/2016 DATE OF CONSULTATION: 08/07/2016 TYPE OF CONSULTATION: Cardiology. REASON FOR CONSULTATION: History of sick sinus syndrome, pacemaker, chest pain. CHIEF COMPLAINT: Debility. HISTORY OF PRESENT ILLNESS: Thank you for this referral. History obtained from the patient, chase vargas with her daughter, discussion with her son. Discussion with the staff, physicians, and review of the old chart. This is a very pleasant 89-year-old female with history of COPD who has been traore sferred from [facility] for respiratory failure, weakness, and myopathy. The patient had a com plicated course, was in the hospital, was noted to have MAC infection. She was transferred to [facility] for further respiratory care. Has received IV steroids, antibiotic therapy for treatment of her MAC. ____ muscle weakness and myopathy, has been transferred to our facility at [facility] rehab for exercise and for rehabilitation. The patient has had 1 episode of chest pain a f ew days ago, but it was walking, apparently according to the staff, according to the family. The luiz gonzalez does not remember the event, but having any more chest pain or pressure. Denies any palpitati on to me. Denies any bleeding to me. PAST MEDICAL HISTORY: History of possibly paroxysmal atrial fibrillation, the etiology is not clear ; history of COPD, history of pneumonitis, history of hypothyroidism, history of sick sinus syndrome status post permanent pacemaker with a [employer] pacemaker. The last battery change and an upgrade was apparently about 8 years ago. SURGICAL HISTORY: Pacemaker placement. ALLERGIES: PATIENT HAS MULTIPLE ALLERGIES INCLUDING to ____ OIL, ____, CODEINE. SOCIAL HISTORY: The patient does not smoke or drink. Has a very supportive family. FAMILY HISTORY: No reported early coronary artery disease. MEDICATIONS: She is currently on: 1. Azithromycin. 2. ____. 3. Rifampin. 4. Vitamins. 5. Aspirin. 6. Lovenox 40. 7. Toprol-XL. 8. Prednisone. 9. Amaryl. 10. Lasix. 11. Levothyroxine. 12. Sotalol. 13. Zantac. 14. Potassium. REVIEW OF SYSTEMS: She denied all other except for above-mentioned. PHYSICAL EXAMINATION: VITAL SIGNS: Temperature 98.5, heart rate of 70, blood pressure 112/90, respiration rate of 20, sat urating 95%. HEENT: Normocephalic, atraumatic. No acute distress. Pupils are equal and round. CARDIOVASCULAR: Regular rate and rhythm, systolic murmur. PULMONARY: With no wheezes or rhonchi. GASTROINTESTINAL: Soft, nontender. No rebound or guarding. EXTREMITIES: Trivial lower extremity edema. NEUROLOGIC: Awake and alert, responds appropriately. PSYCHIATRIC: Very pleasant. DERMATOLOGIC: There are multiple ecchymoses. LABORATORY: WBC of 9.9, hemoglobin 9.9, platelets of 306. Sodium 137, potassium 4.2, BUN of 23, cr eatinine 0.79, glucose of 121. Magnesium is 1.8. Chest x-ray on the shows no acute disease see n in the chest. ASSESSMENT AND PLAN: 1. Sick sinus syndrome status post permanent pacemaker. 2. Chest pain, atypical, has resolved. According to the family, the patient has had a stress test done at Dr. Valdes's office, her radiology specialist, within the past few months. 3. History of paroxysmal atrial fibrillation. 4. Debility and myopathy. 5. History of congestive heart failure with diastolic dysfunction. 6. Thyroid disorder. 7. Mycobacterium avium infection with chronic bronchitis. RECOMMENDATIONS: Antibiotic as per internal medicine and ID's recommendation. We will try to get o ld records and discuss with Dr. Valdes on Wednesday. Try to get catheterization, old record. Will consi deven ischemic workup, ____ stress test, if the patient has repeated chest pain. However, she reports no more chest pain at this point. Aspirin will be continued. Beta-lucille as tolerated will be co ntinued as well. Continue with physical therapy and rehabilitation. Thank you for this referral. Dictated By: KHLOE DAVIS MD AV/BENJAMIN Conf#: [id number] DID#: [id number] CC: BAILEY WICK DO; BRIAN MEDEL DO;*EndCC*
[2016-08-08] MEDS: DICLOFENAC SODIUM 1% GEL 100 GM TUBE TP SCH ×4 (08:11→20:31)
[2016-08-08] MEDS: NYSTATIN 30 GM POWDER BTL TOP SCH ×2 (08:11→20:31)
[2016-08-08] MEDS: CHLORHEXIDINE GLUCONATE 15 ML UD CUP MT SCH ×4 (08:11→20:40)
[2016-08-08] MEDS: ACETAMINOPHEN 325 MG TAB PO PRN ×2 (08:12→20:29)
[2016-08-08] MEDS: POLYETHYLENE GLYCOL 17 GM PACKET PO SCH (08:12)
[2016-08-08] MEDS: ASCORBIC ACID 500 MG TAB PO SCH (08:13)
[2016-08-08] MEDS: CHOLECALCIFEROL 1,000 UNIT TAB PO SCH (08:13)
[2016-08-08] MEDS: PRIMIDONE 50 MG TAB PO SCH ×2 (08:13→20:31)
[2016-08-08] MEDS: POTASSIUM CHLORIDE (SR) 20 MEQ TAB PO SCH ×2 (08:14→20:30)
[2016-08-08] MEDS: ASPIRIN 81 MG TAB PO SCH (08:14)
[2016-08-08] MEDS: GLIMEPIRIDE 2 MG TAB PO SCH (08:14)
[2016-08-08] MEDS: predniSONE 10 MG TAB PO SCH (08:15)
[2016-08-08] MEDS: GUAIFENESIN LA 600 MG TABSR PO SCH ×2 (08:15→20:30)
[2016-08-08] MEDS: SOTALOL 80 MG TAB PO SCH ×2 (08:16→20:30)
[2016-08-08] MEDS: METOPROLOL (XL) 100 MG TAB PO SCH (08:16)
[2016-08-08] MEDS: ENOXAPARIN 40 MG/0.4 ML SYG SC SCH (08:22)
[2016-08-08] MEDS: CYANOCOBALAMIN 500 MCG TAB PO SCH (08:28)
[2016-08-08] MEDS: RIFAMPIN 300 MG CAP PO SCH ×2 (09:00→10:24)
[2016-08-08] MEDS: ETHAMBUTOL 400 MG TAB PO SCH ×3 (09:00→10:24)
[2016-08-08] MEDS: AZITHROMYCIN 250 MG TAB PO SCH ×2 (09:00→10:23)
--- NOTE | 2016-08-08 10:07 | PN ---
DATE: 08/08/2016 SUBJECTIVE: The patient is stable. No acute events. No fevers, chills, nausea, vomiting, shortnes s of breath. OBJECTIVE: VITAL SIGNS: Blood pressure 132/60, respiration 18, pulse 71, temperature 98.7. HEENT: Head is normocephalic. NECK: Supple. HEART: Regular rate. LUNGS: Showed diminished breath sounds at the base. ABDOMEN: Soft, nontender to palpation. No rebound or guarding. EXTREMITIES: Negative for clubbing, cyanosis, or edema. DERMATOLOGIC: No rashes. MUSCULOSKELETAL: Have no joint effusion. NEUROLOGIC: No change in exam. MEDICATIONS: The patient's medications have been reviewed. LABORATORY DATA: Has been reviewed. ASSESSMENT AND PLAN: 1. Acute respiratory failure secondary to chronic obstructive pulmonary disease exacerbation. Curr ently stable. Continue medical management. 2. Mycobacterium avium infection. The patient is clinically improving. Appreciate ID's evaluation . Continue medical management. 3. Diabetes. Continue Accu-Cheks and insulin sliding scale. 4. Hypertension. Continue the current blood pressure regimen. 5. Anemia. Continue to monitor hemoglobin and hematocrit levels. 6. History of paroxysmal atrial fibrillation. The patient is status post pacemaker. The patient w as seen by cardiology. Greatly appreciate their help with management. 7. Steroid-induced myopathy. Clinically improving. Continue medical management. 8. Depression. Continue Cymbalta. 9. History of diastolic heart failure. Clinically improving. Continue medical management. 10. Hypothyroidism. Continue Synthroid. 11. General debility. Continue PT and OT. 12. Gastrointestinal and deep venous thrombosis prophylaxis. Continue proton pump inhibitor and Lo venox. Dictated By: BAILEY JEAN/BENJAMIN Conf#: [id number] DID#: [id number]
--- NOTE | 2016-08-08 12:34 | PN ---
Date/Time of Note Date/Time of Note DATE: 08/08/16 TIME: 12:28 Assessment/Plan VTE Prophylaxis VTE Prophylaxis Intervention: LMWH Lines/Catheters Urinary Cath still in place: No Assessment/Plan Assessment/Plan 1. Steroid induced myopathy with impaired mobility/gait/ADLs. Continue PT/OT. Gait contact guard assistance. Continue to work on improving standing balance, fair minus/poor plus, to decrease fall risk. 2. Acute respiratory failure secondary to COPD exacerbation, also with pulmonary Mycobacterium avium intracellulare infection. Continue medical management per pulmonary, infectious disease and internal medicine. Monitor 02 sats, pulmonary status stable at present. 3. Degenerative joint disease. Continue pain control. 4. Hypertension. BP controlled, continue current management. 5. History of Paroxysmal atrial fibrillation/ sick sinus syndrome S/P Pacemaker. Continue medical management per cardiology, following. 6. Diabetes mellitus type 2. Continue to monitor blood sugars. Internal medicine managing. 7. Anemia. Monitor hemoglobin/hematocrit, stable on last labs. 8. Hypothyroidism. Continue levothyroxine. 9. History of diastolic CHF. Continue diuretics per cardiology, monitor volume status. Subjective 24 Hr Interval Summary Free Text/Dictation Rehab progress note Subjective: No acute complaints. ROS: Denies shortness of breath, no chest pain, no abdominal pain, no nausea, no chills. Exam/Review of Systems Vital Signs Vitals Vital Signs Date Time Temp Pulse Resp B/P Pulse Ox O2 Delivery O2 Flow Rate FiO2 08/08/16 07:36 95 21 08/08/16 07:36 79 18 08/08/16 02:24 2.0 08/07/16 20:15 Nasal Cannula 08/07/16 20:00 98.7 132/60 Intake and Output 08/07/16 08/07/16 08/08/16 15:00 23:00 07:00 Intake Total 540 ml Balance 540 ml Exam General: Awake, alert, no acute distress CV: S1s2, regular rate Lungs: Diminished breath sounds bilaterally, no wheezing Abdomen soft, nontender, +bowel sounds Extremities: No edema, no cyanosis Neuro: Follows simple commands. Antigravity strength BUE/BLE. Results Result Diagram: 08/06/16 0718 08/06/16 0715 Results 24 hrs Laboratory Tests Test 08/07/16 17:18 08/08/16 07:29 08/08/16 12:21 Bedside Glucose 159 138 143 Medications Medications Current Medications Acetaminophen (Tylenol Tab) 650 mg Q6H PRN PO PAIN AND OR ELEVATED TEMP Last administered on 08/08/16 08:12; Admin Dose 650 MG; Start 08/04/16 at 21:00 Ascorbic Acid (Vitamin C) 1,000 mg DAILY PO Last administered on 08/08/16 08: 13; Admin Dose 1,000 MG; Start 08/05/16 at 09:00 Aspirin (Aspirin) 81 mg DAILY PO Last administered on 08/08/16 08:14; Admin Dose 81 MG; Start 08/05/16 at 09:00 Azithromycin (Zithromax) 500 mg TuThSa@09 PO Last administered on 08/08/16 10: 23; Admin Dose 500 MG; Start 08/06/16 at 09:00 Chlorhexidine Gluconate (Peridex) 15 ml QID MT Last administered on 08/08/16 08:11; Admin Dose 15 ML; Start 08/04/16 at 21:00 Cholecalciferol (Vitamin D) 1,000 unit DAILY PO Last administered on 08/08/16 08:13; Admin Dose 1,000 UNIT; Start 08/05/16 at 09:00 Cyanocobalamin (Vitamin B12) 1,000 mcg DAILY PO Last administered on 08/08/16 08:28; Admin Dose 1,000 MCG; Start 08/05/16 at 09:00 Diclofenac Sodium (Voltaren 1% Gel) 1 gm QID TP Last administered on 08/08/16 08:11; Admin Dose 1 GM; Start 08/04/16 at 21:00 Docusate Sodium (Colace) 100 mg Q8H PRN PO CONSTIPATION; Start 08/04/16 at 21: 00 Duloxetine HCl (Cymbalta) 30 mg HS PO Last administered on 08/07/16 20:41; Admin Dose 30 MG; Start 08/04/16 at 21:00 Enoxaparin Sodium (Lovenox) 40 mg DAILY SC Last administered on 08/08/16 08:22 ; Admin Dose 40 MG; Start 08/05/16 at 09:00 Ethambutol HCl (Myambutol) 1,200 mg TuThSa@09 PO Last administered on 10:24; Admin Dose 1,200 MG; Start 08/06/16 at 09:00 Furosemide (Lasix) 40 mg DAILY@06 PO Last administered on 08/08/16 06:21; Admin Dose 40 MG; Start 08/05/16 at 06:00 Guaifenesin (Mucinex) 1,200 mg BID PO Last administered on 08/08/16 08:15; Admin Dose 1,200 MG; Start 08/04/16 at 21:00 Ibuprofen (Motrin) 200 mg HS PRN PO ARTHRITIS PAIN; Start 08/04/16 at 21:00 Levothyroxine Sodium (Synthroid) 50 mcg DAILY@06 PO Last administered on 05:57; Admin Dose 50 MCG; Start 08/05/16 at 06:00 Metoprolol Succinate (Toprol Xl) 100 mg DAILY PO Last administered on 09:09; Admin Dose 100 MG; Start 08/05/16 at 09:00 Nystatin (Nystatin Powder) 1 applic BID TOP Last administered on 08/08/16 08: 11; Admin Dose 1 APPLIC; Start 08/04/16 at 21:00 Polyethylene Glycol (Miralax) 17 gm DAILY PO Last administered on 08/08/16 08: 12; Admin Dose 17 GM; Start 08/05/16 at 09:00 Polyethylene Glycol (Miralax) 17 gm DAILY PRN PO CONSTIPATION; Start 08/04/16 at 21:00 Potassium Chloride (Klor-Con 20) 20 meq BID PO Last administered on 08/08/16 08:14; Admin Dose 20 MEQ; Start 08/04/16 at 21:00 Prednisone (Prednisone) 10 mg DAILY PO Last administered on 08/08/16 08:15; Admin Dose 10 MG; Start 08/05/16 at 09:00 Primidone (Mysoline) 50 mg BID PO Last administered on 08/08/16 08:13; Admin Dose 50 MG; Start 08/04/16 at 22:00 Ranitidine HCl (Zantac) 150 mg HS PO Last administered on 08/07/16 20:41; Admin Dose 150 MG; Start 08/04/16 at 21:00 Sotalol HCl (Betapace) 80 mg Q12 PO Last administered on 08/07/16 20:41; Admin Dose 80 MG; Start 08/04/16 at 21:00 Al Hydrox/Mg Hydrox/Simethicone (Mag-Al Plus) 30 ml Q4H PRN PO GASTROINTESTINAL UPSET Last administered on 08/07/16 22:00; Admin Dose 30 ML; Start 08/04/16 at 21:00 Miscellaneous Information 1 ea NOTE XX ; Start 08/04/16 at 21:30 Glucose (Glutose) 15 gm Q15M PRN PO DECREASED GLUCOSE; Start 08/04/16 at 21:30 Glucose (Glutose) 22.5 gm Q15M PRN PO DECREASED GLUCOSE; Start 08/04/16 at 21: 30 Dextrose (D50w Syringe) 25 ml Q15M PRN IV DECREASED GLUCOSE; Start 08/04/16 at 21:30 Dextrose (D50w Syringe) 50 ml Q15M PRN IV DECREASED GLUCOSE; Start 08/04/16 at 21:30 Glucagon (Glucagen) 1 mg Q15M PRN IM DECREASED GLUCOSE; Start 08/04/16 at 21:30 Glucose (Glutose) 15 gm Q15M PRN BUCCAL DECREASED GLUCOSE; Start 08/04/16 at 21 :30 Rifampin (Rifampin) 600 mg TuThSa PO Last administered on 08/08/16 10:24; Admin Dose 600 MG; Start 08/06/16 at 09:00 LEIGH DOMINIQUE Aug 08, 2016 12:34
--- NOTE | 2016-08-08 14:32 | CONS ---
Date/Time of Note Date/Time of Note DATE: 08/08/16 TIME: 14:31 Assessment/Plan Assessment/Plan Chief Complaint/Hosp Course ID PROGRESS NOTE CURRENT ABX=> Azith + Rifampin 24H INTERVAL SUMMARY * 89 yo F, awake, alert, responsive, denies dysuria, taking PO meds with clear H20 without difficulty * Afebrile-> TMax 08/06 @ 99.2, VSS, NAD * WBC down to 9.9 on 08/06/16 PHYSICAL EXAMINATION: GENERAL: VSS, NAD HEENT: Unremarkable -- except dentures NECK: Supple, trachea midline. CHEST: Rise symmetrical, without dyspnea on observation HEART: Pulse RRR ABDOMEN: Soft, benign EXTREMITIES: Warm ID ASSESSMENT 89 yo F admit with: 1. COPD. 2. Hypersensitivity pneumonitis. 3. Steroid induced myopathy w/severe muscle weakness 4. 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 5. Paroxysmal atrial fibrillation w/indwelling pacemaker 6. Hypertension. 7. Hypothyroidism 8. Polymicrobial UTI vs asymptomatic bacteriuria ?If patient had prior FC possible CRI * 07/06/16 URINE CULTURE Final Organism 1 ENTEROCOCCUS SPECIES COLONY COUNT >100,000 CFU/ml Organism 2 COAGULASE NEGATIVE STAPH COLONY COUNT >100,000 CFU/ml (-)MRSA Nares INVASIVES: PIV, ABX ALLERGY: KNDA CURRENT ABX: => Azith + Rifampin for pulmonary MAC s/p ID RECOMMENDATIONS 1. Continue current ABX for MAC 2. Repeat Urine Cx is pending - Will hold off on ABX Rx for UTI unless patient develops clinical indication for treatment . Problems: Consultation Date/Type/Reason Admit Date/Time Aug 04, 2016 at 18:33 Initial Consult Date Exam/Review of Systems Vital Signs Vitals Vital Signs Date Time Temp Pulse Resp B/P Pulse Ox O2 Delivery O2 Flow Rate FiO2 08/08/16 07:36 95 21 08/08/16 07:36 79 18 08/08/16 02:24 2.0 08/07/16 20:15 Nasal Cannula 08/07/16 20:00 98.7 132/60 Intake and Output 08/07/16 08/07/16 08/08/16 15:00 23:00 07:00 Intake Total 540 ml Balance 540 ml Results Result Diagram: 08/06/1618 08/06/16 0715 Results 24 hrs Laboratory Tests Test 08/07/16 17:18 08/08/16 07:29 08/08/16 12:21 Bedside Glucose 159 138 143 Medications Medications Current Medications Acetaminophen (Tylenol Tab) 650 mg Q6H PRN PO PAIN AND OR ELEVATED TEMP Last administered on 08/08/16 08:12; Admin Dose 650 MG; Start 08/04/16 at 21:00 Ascorbic Acid (Vitamin C) 1,000 mg DAILY PO Last administered on 08/08/16 08: 13; Admin Dose 1,000 MG; Start 08/05/16 at 09:00 Aspirin (Aspirin) 81 mg DAILY PO Last administered on 08/08/16 08:14; Admin Dose 81 MG; Start 08/05/16 at 09:00 Azithromycin (Zithromax) 500 mg TuThSa@09 PO Last administered on 08/08/16 10: 23; Admin Dose 500 MG; Start 08/06/16 at 09:00 Chlorhexidine Gluconate (Peridex) 15 ml QID MT Last administered on 08/08/16 12:42; Admin Dose 15 ML; Start 08/04/16 at 21:00 Cholecalciferol (Vitamin D) 1,000 unit DAILY PO Last administered on 08/08/16 08:13; Admin Dose 1,000 UNIT; Start 08/05/16 at 09:00 Cyanocobalamin (Vitamin B12) 1,000 mcg DAILY PO Last administered on 08/08/16 08:28; Admin Dose 1,000 MCG; Start 08/05/16 at 09:00 Diclofenac Sodium (Voltaren 1% Gel) 1 gm QID TP Last administered on 08/08/16 12:43; Admin Dose 1 GM; Start 08/04/16 at 21:00 Docusate Sodium (Colace) 100 mg Q8H PRN PO CONSTIPATION; Start 08/04/16 at 21: 00 Duloxetine HCl (Cymbalta) 30 mg HS PO Last administered on 08/07/16 20:41; Admin Dose 30 MG; Start 08/04/16 at 21:00 Enoxaparin Sodium (Lovenox) 40 mg DAILY SC Last administered on 08/08/16 08:22 ; Admin Dose 40 MG; Start 08/05/16 at 09:00 Ethambutol HCl (Myambutol) 1,200 mg TuThSa@09 PO Last administered on 10:24; Admin Dose 1,200 MG; Start 08/06/16 at 09:00 Furosemide (Lasix) 40 mg DAILY@06 PO Last administered on 08/08/16 06:21; Admin Dose 40 MG; Start 08/05/16 at 06:00 Guaifenesin (Mucinex) 1,200 mg BID PO Last administered on 08/08/16 08:15; Admin Dose 1,200 MG; Start 08/04/16 at 21:00 Ibuprofen (Motrin) 200 mg HS PRN PO ARTHRITIS PAIN; Start 08/04/16 at 21:00 Levothyroxine Sodium (Synthroid) 50 mcg DAILY@06 PO Last administered on 05:57; Admin Dose 50 MCG; Start 08/05/16 at 06:00 Metoprolol Succinate (Toprol Xl) 100 mg DAILY PO Last administered on 09:09; Admin Dose 100 MG; Start 08/05/16 at 09:00 Nystatin (Nystatin Powder) 1 applic BID TOP Last administered on 08/08/16 08: 11; Admin Dose 1 APPLIC; Start 08/04/16 at 21:00 Polyethylene Glycol (Miralax) 17 gm DAILY PO Last administered on 08/08/16 08: 12; Admin Dose 17 GM; Start 08/05/16 at 09:00 Polyethylene Glycol (Miralax) 17 gm DAILY PRN PO CONSTIPATION; Start 08/04/16 at 21:00 Potassium Chloride (Klor-Con 20) 20 meq BID PO Last administered on 08/08/16 08:14; Admin Dose 20 MEQ; Start 08/04/16 at 21:00 Prednisone (Prednisone) 10 mg DAILY PO Last administered on 08/08/16 08:15; Admin Dose 10 MG; Start 08/05/16 at 09:00 Primidone (Mysoline) 50 mg BID PO Last administered on 08/08/16 08:13; Admin Dose 50 MG; Start 08/04/16 at 22:00 Ranitidine HCl (Zantac) 150 mg HS PO Last administered on 08/07/16 20:41; Admin Dose 150 MG; Start 08/04/16 at 21:00 Sotalol HCl (Betapace) 80 mg Q12 PO Last administered on 08/07/16 20:41; Admin Dose 80 MG; Start 08/04/16 at 21:00 Al Hydrox/Mg Hydrox/Simethicone (Mag-Al Plus) 30 ml Q4H PRN PO GASTROINTESTINAL UPSET Last administered on 08/07/16 22:00; Admin Dose 30 ML; Start 08/04/16 at 21:00 Miscellaneous Information 1 ea NOTE XX ; Start 08/04/16 at 21:30 Glucose (Glutose) 15 gm Q15M PRN PO DECREASED GLUCOSE; Start 08/04/16 at 21:30 Glucose (Glutose) 22.5 gm Q15M PRN PO DECREASED GLUCOSE; Start 08/04/16 at 21: 30 Dextrose (D50w Syringe) 25 ml Q15M PRN IV DECREASED GLUCOSE; Start 08/04/16 at 21:30 Dextrose (D50w Syringe) 50 ml Q15M PRN IV DECREASED GLUCOSE; Start 08/04/16 at 21:30 Glucagon (Glucagen) 1 mg Q15M PRN IM DECREASED GLUCOSE; Start 08/04/16 at 21:30 Glucose (Glutose) 15 gm Q15M PRN BUCCAL DECREASED GLUCOSE; Start 08/04/16 at 21 :30 Rifampin (Rifampin) 600 mg TuThSa PO Last administered on 08/08/16 10:24; Admin Dose 600 MG; Start 08/06/16 at 09:00 JORDI UMAÑA NP Aug 08, 2016 14:31
[2016-08-08 19:19] VITALS: BP 118/56; RESP 16
[2016-08-08] MEDS: AL HYDROX/MG HYDROX/SIMETH 30 ML CUP PO PRN (19:21)
[2016-08-08 19:46] VITALS: BP 132/60; RESP 20
[2016-08-08] MEDS: DULOXETINE 30 MG CAP DR PO SCH (20:29)
[2016-08-08] MEDS: RANITIDINE 150 MG TAB PO SCH (20:30)
[2016-08-09] MEDS: LEVALBUTEROL (NEB) 0.63 MG/3 ML AMP INH SCH ×4 (02:00→21:07)
[2016-08-09] MEDS: IPRATROPIUM (NEB) 0.5 MG/2.5 ML AMP INH SCH ×4 (02:00→21:07)
[2016-08-09] MEDS: FUROSEMIDE 40 MG TAB PO SCH (06:21)
[2016-08-09] MEDS: PANTOPRAZOLE (EC) 40 MG TAB PO SCH (06:21)
[2016-08-09] MEDS: LEVOTHYROXINE 50 MCG TAB PO SCH (06:21)
[2016-08-09 06:23] VITALS: BP 116/56; PULSE 85
[2016-08-09] MEDS: Insulin NOVOLOG SS MILD Algorithm (SS with meals and bedtime) SC SCH ×3 (07:05→17:22)
[2016-08-09] MEDS: POLYETHYLENE GLYCOL 17 GM PACKET PO SCH (08:46)
[2016-08-09] MEDS: CHLORHEXIDINE GLUCONATE 15 ML UD CUP MT SCH (08:46)
[2016-08-09] MEDS: ENOXAPARIN 40 MG/0.4 ML SYG SC SCH (08:47)
[2016-08-09] MEDS: GUAIFENESIN LA 600 MG TABSR PO SCH ×2 (08:47→20:22)
[2016-08-09] MEDS: CYANOCOBALAMIN 500 MCG TAB PO SCH (08:47)
[2016-08-09] MEDS: ASPIRIN 81 MG TAB PO SCH (08:47)
[2016-08-09] MEDS: POTASSIUM CHLORIDE (SR) 20 MEQ TAB PO SCH ×2 (08:48→20:28)
[2016-08-09] MEDS: CHOLECALCIFEROL 1,000 UNIT TAB PO SCH (08:48)
[2016-08-09] MEDS: METOPROLOL (XL) 100 MG TAB PO SCH (08:48)
[2016-08-09] MEDS: PRIMIDONE 50 MG TAB PO SCH ×2 (08:48→20:22)
[2016-08-09] MEDS: ASCORBIC ACID 500 MG TAB PO SCH (08:48)
[2016-08-09] MEDS: GLIMEPIRIDE 2 MG TAB PO SCH (08:49)
[2016-08-09] MEDS: SOTALOL 80 MG TAB PO SCH ×2 (08:49→20:22)
[2016-08-09] MEDS: predniSONE 10 MG TAB PO SCH (08:49)
[2016-08-09] MEDS: NYSTATIN 30 GM POWDER BTL TOP SCH ×2 (08:50→20:22)
[2016-08-09] MEDS: DICLOFENAC SODIUM 1% GEL 100 GM TUBE TP SCH ×4 (09:00→20:23)
--- NOTE | 2016-08-09 10:34 | PN ---
DATE: SUBJECTIVE: The patient is stable, no acute events overnight. No fevers, chills, nausea, vomiting. OBJECTIVE: VITAL SIGNS: Blood pressure 116/56, respiration 18, pulse 75, temperature 98.4. HEENT: Head is normocephalic. NECK: Supple. HEART: Regular rate. LUNGS: Show diminished breath sounds at the base. ABDOMEN: Soft, nontender to palpation. No rebound or guarding. EXTREMITIES: Negative for clubbing, cyanosis. No edema. DERMATOLOGIC: No rashes. MUSCULOSKELETAL: No joint effusions. NEUROLOGIC: No change in exam. MEDICATIONS: The patient's medications have been reviewed. LABORATORY DATA: Have been reviewed. ASSESSMENT AND PLAN: 1. Acute respiratory failure secondary to chronic obstructive pulmonary disease exacerbation, curre ntly stable. Continue medical management. 2. Mycobacterium avium infection. Continue current medical management. Follow up with Infectious Disease. 3. Diabetes. Continue Accu-Cheks and sliding scale. 4. Hypertension. Continue current blood pressure regimen. 5. Anemia. Continue to monitor hemoglobin and hematocrit levels. 6. Paroxysmal atrial fibrillation. The patient is status post pacemaker. Will follow up with Card iology. 7. Steroid-induced myopathy, clinically improving. Continue medical management. 8. Depression. Continue Cymbalta. 9. History of diastolic heart failure, improving. Continue to monitor. 10. Hypothyroidism. Continue Synthroid. 11. General debility. Continue physical therapy and occupational therapy. 12. Gastrointestinal and deep venous thrombosis prophylaxis. Continue proton pump inhibitor and Lo venox. Dictated By: BAILEY JEAN/BENJAMIN Conf#: [id number] DID#: [id number]
--- NOTE | 2016-08-09 10:40 | PN ---
Date/Time of Note Date/Time of Note DATE: 08/09/16 TIME: 10:38 Assessment/Plan VTE Prophylaxis VTE Prophylaxis Intervention: SCD's Lines/Catheters Urinary Cath still in place: No Assessment/Plan Assessment/Plan 1. Steroid induced myopathy with impaired mobility/gait/ADLs. Continue PT/OT. Grooming with contact guard assistance. Transfers with contact guard assistance. 2. Acute respiratory failure secondary to COPD exacerbation, also with Mycobacterium avium intracellulare infection. Medically managed per pulmonary, infectious disease and internal medicine. Continue to monitor pulmonary status, stable. Monitor 02 sats with therapies. 3. History of Degenerative joint disease. Continue pain control. 4. Hypertension. BP controlled, continue current management. 5. History of Paroxysmal atrial fibrillation/ sick sinus syndrome S/P Pacemaker. Continue medical management per cardiology, following. 6. Diabetes mellitus type 2. Continue to monitor blood sugars. Internal medicine managing. 7. Anemia. Continue to monitor hemoglobin/hematocrit. 8. Hypothyroidism. Continue levothyroxine. 9. History of diastolic CHF. On diuretics. Monitor volume status. Subjective 24 Hr Interval Summary Free Text/Dictation Rehab progress note Subjective: Denies any acute complaints at present. No acute overnight events per nursing staff. ROS: Denies chest pain, no shortness of breath, no abdominal pain, no nausea, no vomiting, no constipation. Exam/Review of Systems Vital Signs Vitals Vital Signs Date Time Temp Pulse Resp B/P Pulse Ox O2 Delivery O2 Flow Rate FiO2 08/09/16 09:48 76 20 97 Nasal Cannula 2.0 08/09/16 06:23 116/56 08/08/16 19:46 98.4 08/08/16 14:54 21 Intake and Output 08/08/16 08/08/16 08/09/16 15:00 23:00 07:00 Intake Total 200 ml 200 ml Output Total 3 ml Balance 197 ml 200 ml Exam General: Awake, alert, no acute distress CV: S1s2, regular rate Lungs: Respirations are nonlabored, no crackles or wheezing Abdomen soft, nontender Extremities: No edema, no cyanosis Neuro: No new focal changes. Follows simple commands. Results Result Diagram: 08/06/16 0718 08/06/16 0715 Results 24 hrs Laboratory Tests Test 08/08/16 12:21 08/08/16 17:14 08/08/16 18:28 08/08/16 18:50 Bedside Glucose 143 67 L 67 L 124 Test 08/08/16 20:34 08/09/16 07:24 Bedside Glucose 192 137 Medications Medications Current Medications Acetaminophen (Tylenol Tab) 650 mg Q6H PRN PO PAIN AND OR ELEVATED TEMP Last administered on 08/08/16 20:29; Admin Dose 650 MG; Start 08/04/16 at 21:00 Ascorbic Acid (Vitamin C) 1,000 mg DAILY PO Last administered on 08/09/16 08: 48; Admin Dose 1,000 MG; Start 08/05/16 at 09:00 Aspirin (Aspirin) 81 mg DAILY PO Last administered on 08/09/16 08:47; Admin Dose 81 MG; Start 08/05/16 at 09:00 Azithromycin (Zithromax) 500 mg TuThSa@09 PO Last administered on 08/08/16 10: 23; Admin Dose 500 MG; Start 08/06/16 at 09:00 Chlorhexidine Gluconate (Peridex) 15 ml QID MT Last administered on 08/09/16 08:46; Admin Dose 15 ML; Start 08/04/16 at 21:00 Cholecalciferol (Vitamin D) 1,000 unit DAILY PO Last administered on 08/09/16 08:48; Admin Dose 1,000 UNIT; Start 08/05/16 at 09:00 Cyanocobalamin (Vitamin B12) 1,000 mcg DAILY PO Last administered on 08/09/16 08:47; Admin Dose 1,000 MCG; Start 08/05/16 at 09:00 Diclofenac Sodium (Voltaren 1% Gel) 1 gm QID TP Last administered on 08/08/16 20:31; Admin Dose 1 GM; Start 08/04/16 at 21:00 Docusate Sodium (Colace) 100 mg Q8H PRN PO CONSTIPATION; Start 08/04/16 at 21: 00 Duloxetine HCl (Cymbalta) 30 mg HS PO Last administered on 08/08/16 20:29; Admin Dose 30 MG; Start 08/04/16 at 21:00 Enoxaparin Sodium (Lovenox) 40 mg DAILY SC Last administered on 08/09/16 08:47 ; Admin Dose 40 MG; Start 08/05/16 at 09:00 Ethambutol HCl (Myambutol) 1,200 mg TuThSa@09 PO Last administered on 10:24; Admin Dose 1,200 MG; Start 08/06/16 at 09:00 Furosemide (Lasix) 40 mg DAILY@06 PO Last administered on 08/09/16 06:21; Admin Dose 40 MG; Start 08/05/16 at 06:00 Guaifenesin (Mucinex) 1,200 mg BID PO Last administered on 08/09/16 08:47; Admin Dose 1,200 MG; Start 08/04/16 at 21:00 Ibuprofen (Motrin) 200 mg HS PRN PO ARTHRITIS PAIN; Start 08/04/16 at 21:00 Levothyroxine Sodium (Synthroid) 50 mcg DAILY@06 PO Last administered on 06:21; Admin Dose 50 MCG; Start 08/05/16 at 06:00 Metoprolol Succinate (Toprol Xl) 100 mg DAILY PO Last administered on 08:48; Admin Dose 100 MG; Start 08/05/16 at 09:00 Nystatin (Nystatin Powder) 1 applic BID TOP Last administered on 08/09/16 08: 50; Admin Dose 1 APPLIC; Start 08/04/16 at 21:00 Polyethylene Glycol (Miralax) 17 gm DAILY PO Last administered on 08/09/16 08: 46; Admin Dose 17 GM; Start 08/05/16 at 09:00 Polyethylene Glycol (Miralax) 17 gm DAILY PRN PO CONSTIPATION; Start 08/04/16 at 21:00 Potassium Chloride (Klor-Con 20) 20 meq BID PO Last administered on 08/09/16 08:48; Admin Dose 20 MEQ; Start 08/04/16 at 21:00 Prednisone (Prednisone) 10 mg DAILY PO Last administered on 08/09/16 08:49; Admin Dose 10 MG; Start 08/05/16 at 09:00 Primidone (Mysoline) 50 mg BID PO Last administered on 08/09/16 08:48; Admin Dose 50 MG; Start 08/04/16 at 22:00 Ranitidine HCl (Zantac) 150 mg HS PO Last administered on 08/08/16 20:30; Admin Dose 150 MG; Start 08/04/16 at 21:00 Sotalol HCl (Betapace) 80 mg Q12 PO Last administered on 08/09/16 08:49; Admin Dose 80 MG; Start 08/04/16 at 21:00 Al Hydrox/Mg Hydrox/Simethicone (Mag-Al Plus) 30 ml Q4H PRN PO GASTROINTESTINAL UPSET Last administered on 08/08/16 19:21; Admin Dose 30 ML; Start 08/04/16 at 21:00 Miscellaneous Information 1 ea NOTE XX ; Start 08/04/16 at 21:30 Glucose (Glutose) 15 gm Q15M PRN PO DECREASED GLUCOSE; Start 08/04/16 at 21:30 Glucose (Glutose) 22.5 gm Q15M PRN PO DECREASED GLUCOSE; Start 08/04/16 at 21: 30 Dextrose (D50w Syringe) 25 ml Q15M PRN IV DECREASED GLUCOSE; Start 08/04/16 at 21:30 Dextrose (D50w Syringe) 50 ml Q15M PRN IV DECREASED GLUCOSE; Start 08/04/16 at 21:30 Glucagon (Glucagen) 1 mg Q15M PRN IM DECREASED GLUCOSE; Start 08/04/16 at 21:30 Glucose (Glutose) 15 gm Q15M PRN BUCCAL DECREASED GLUCOSE; Start 08/04/16 at 21 :30 Rifampin (Rifampin) 600 mg TuThSa PO Last administered on 08/08/16 10:24; Admin Dose 600 MG; Start 08/06/16 at 09:00 LEIGH DOMINIQUE Aug 09, 2016 10:40
--- NOTE | 2016-08-09 12:16 | RADRPT ---
PROCEDURE: XR Chest. CLINICAL INDICATION: Shortness of breath. TECHNIQUE: Single frontal view. COMPARISON: 07/18/2016. FINDINGS: There is a left-sided biventricular pacemaker. The heart size is normal. There is calcification in the aorta consistent with atherosclerosis. Mild scarring is present at the lung apices. The lungs are otherwise clear. There is no pleural effusion. There is no pneumothorax. IMPRESSION: 1. Biventricular pacemaker. 2. Atherosclerosis. 3. Scarring at the lung apices. RPTAT: QQ .Malik Camara MD, MD Date Time Electronically viewed and signed by .Malik Camara MD, MD on 08/09/2016 12:15 .R/
[2016-08-09 19:30] VITALS: BP 126/62; RESP 20
[2016-08-09 20:00] VITALS: BP 133/58; PULSE 75
[2016-08-09] MEDS: RANITIDINE 150 MG TAB PO SCH (20:22)
[2016-08-09] MEDS: DULOXETINE 30 MG CAP DR PO SCH (20:22)
--- NOTE | 2016-08-09 20:27 | CONS ---
Date/Time of Note Date/Time of Note DATE: 08/09/16 TIME: 20:20 Assessment/Plan Assessment/Plan Chief Complaint/Hosp Course ID PROGRESS NOTE CURRENT ABX=> Azith + Rifampin 24H INTERVAL SUMMARY * Clinically status quo 89 yo F, A/A/ responsive -- generalized weakness in rehab for steroid induced myopathy - on ABX for pulmonary MAC * Repeat urine w/ bacteruria = overall asymptomatic = NO fevers/chills/No dysuria/No hematuria * 08/08/16-599 Rcvd: 08/08/16 Source: [facility] Sp Descrip: Microbiology URINE CULTURE Preliminary Organism 1 ENTEROCOCCUS SPECIES COLONY COUNT 30,000 - 40,000 CFU/ml PHYSICAL EXAMINATION: GENERAL: VSS, NAD HEENT: Unremarkable -- except dentures NECK: Supple, trachea midline. CHEST: Rise symmetrical, without dyspnea on observation HEART: Pulse RRR ABDOMEN: Soft, benign EXTREMITIES: Warm ID ASSESSMENT 89 yo F admit with: 1. COPD. 2. Hypersensitivity pneumonitis. 3. Steroid induced myopathy w/severe muscle weakness 4. 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 5. Paroxysmal atrial fibrillation w/indwelling pacemaker 6. Hypertension. 7. Hypothyroidism 8. Asymptomatic bacteriuria ?If patient had prior FC possible CRI UTI ? = NO ABX RX given w/repeat urine cx lower CFU * REPEAT URINE CX 07/08/16: 08/08/16 Rcvd: 08/08/16 Source: [facility] Sp Descrip: Microbiology URINE CULTURE Preliminary Organism 1 ENTEROCOCCUS SPECIES COLONY COUNT 30,000 - 40,000 CFU/ml * 07/06/16 URINE CULTURE Final Organism 1 ENTEROCOCCUS SPECIES COLONY COUNT >100,000 CFU/ml Organism 2 COAGULASE NEGATIVE STAPH COLONY COUNT >100,000 CFU/ml (-)MRSA Nares INVASIVES: PIV, ABX ALLERGY: KNDA CURRENT ABX: => Azith + Rifampin for pulmonary MAC ID RECOMMENDATIONS 1. Continue current ABX for MAC 2. Repeat Urine Cx is growing Enterococcus @ 30-40,000 CFU preliminary = ASYMPTOMATIC Bacteruria * Will hold off on ABX Rx for UTI unless patient develops clinical indication for treatment * Alternative = treat empirically with Fosfomycin 3gm po X1 if there is any question about symptomatology . Problems: Consultation Date/Type/Reason Admit Date/Time Aug 04, 2016 at 18:33 Exam/Review of Systems Vital Signs Vitals Vital Signs Date Time Temp Pulse Resp B/P Pulse Ox O2 Delivery O2 Flow Rate FiO2 08/09/16 19:30 98.8 76 20 126/62 98 08/09/16 14:12 Nasal Cannula 2.0 08/08/16 14:54 21 Intake and Output 08/08/16 08/08/16 08/09/16 15:00 23:00 07:00 Intake Total 200 ml 200 ml Output Total 3 ml Balance 197 ml 200 ml Results Result Diagram: 08/06/16 0718 08/06/16 0715 Results 24 hrs Laboratory Tests Test 08/08/16 20:34 08/09/16 07:24 08/09/16 11:51 08/09/16 16:38 Bedside Glucose 192 137 242 H 151 Medications Medications Current Medications Acetaminophen (Tylenol Tab) 650 mg Q6H PRN PO PAIN AND OR ELEVATED TEMP Last administered on 08/08/16 20:29; Admin Dose 650 MG; Start 08/04/16 at 21:00 Ascorbic Acid (Vitamin C) 1,000 mg DAILY PO Last administered on 08/09/16 08: 48; Admin Dose 1,000 MG; Start 08/05/16 at 09:00 Aspirin (Aspirin) 81 mg DAILY PO Last administered on 08/09/16 08:47; Admin Dose 81 MG; Start 08/05/16 at 09:00 Azithromycin (Zithromax) 500 mg TuThSa@09 PO Last administered on 08/08/16 10: 23; Admin Dose 500 MG; Start 08/06/16 at 09:00 Cholecalciferol (Vitamin D) 1,000 unit DAILY PO Last administered on 08/09/16 08:48; Admin Dose 1,000 UNIT; Start 08/05/16 at 09:00 Cyanocobalamin (Vitamin B12) 1,000 mcg DAILY PO Last administered on 08/09/16 08:47; Admin Dose 1,000 MCG; Start 08/05/16 at 09:00 Diclofenac Sodium (Voltaren 1% Gel) 1 gm QID TP Last administered on 08/08/16 20:31; Admin Dose 1 GM; Start 08/04/16 at 21:00 Docusate Sodium (Colace) 100 mg Q8H PRN PO CONSTIPATION; Start 08/04/16 at 21: 00 Duloxetine HCl (Cymbalta) 30 mg HS PO Last administered on 08/08/16 20:29; Admin Dose 30 MG; Start 08/04/16 at 21:00 Enoxaparin Sodium (Lovenox) 40 mg DAILY SC Last administered on 08/09/16 08:47 ; Admin Dose 40 MG; Start 08/05/16 at 09:00 Ethambutol HCl (Myambutol) 1,200 mg TuThSa@09 PO Last administered on 10:24; Admin Dose 1,200 MG; Start 08/06/16 at 09:00 Furosemide (Lasix) 40 mg DAILY@06 PO Last administered on 08/09/16 06:21; Admin Dose 40 MG; Start 08/05/16 at 06:00 Guaifenesin (Mucinex) 1,200 mg BID PO Last administered on 08/09/16 08:47; Admin Dose 1,200 MG; Start 08/04/16 at 21:00 Ibuprofen (Motrin) 200 mg HS PRN PO ARTHRITIS PAIN; Start 08/04/16 at 21:00 Levothyroxine Sodium (Synthroid) 50 mcg DAILY@06 PO Last administered on 06:21; Admin Dose 50 MCG; Start 08/05/16 at 06:00 Metoprolol Succinate (Toprol Xl) 100 mg DAILY PO Last administered on 08:48; Admin Dose 100 MG; Start 08/05/16 at 09:00 Nystatin (Nystatin Powder) 1 applic BID TOP Last administered on 08/09/16 08: 50; Admin Dose 1 APPLIC; Start 08/04/16 at 21:00 Polyethylene Glycol (Miralax) 17 gm DAILY PO Last administered on 08/09/16 08: 46; Admin Dose 17 GM; Start 08/05/16 at 09:00 Polyethylene Glycol (Miralax) 17 gm DAILY PRN PO CONSTIPATION; Start 08/04/16 at 21:00 Potassium Chloride (Klor-Con 20) 20 meq BID PO Last administered on 08/09/16 08:48; Admin Dose 20 MEQ; Start 08/04/16 at 21:00 Prednisone (Prednisone) 10 mg DAILY PO Last administered on 08/09/16 08:49; Admin Dose 10 MG; Start 08/05/16 at 09:00 Primidone (Mysoline) 50 mg BID PO Last administered on 08/09/16 08:48; Admin Dose 50 MG; Start 08/04/16 at 22:00 Ranitidine HCl (Zantac) 150 mg HS PO Last administered on 08/08/16 20:30; Admin Dose 150 MG; Start 08/04/16 at 21:00 Sotalol HCl (Betapace) 80 mg Q12 PO Last administered on 08/09/16 08:49; Admin Dose 80 MG; Start 08/04/16 at 21:00 Al Hydrox/Mg Hydrox/Simethicone (Mag-Al Plus) 30 ml Q4H PRN PO GASTROINTESTINAL UPSET Last administered on 08/08/16 19:21; Admin Dose 30 ML; Start 08/04/16 at 21:00 Miscellaneous Information 1 ea NOTE XX ; Start 08/04/16 at 21:30 Glucose (Glutose) 15 gm Q15M PRN PO DECREASED GLUCOSE; Start 08/04/16 at 21:30 Glucose (Glutose) 22.5 gm Q15M PRN PO DECREASED GLUCOSE; Start 08/04/16 at 21: 30 Dextrose (D50w Syringe) 25 ml Q15M PRN IV DECREASED GLUCOSE; Start 08/04/16 at 21:30 Dextrose (D50w Syringe) 50 ml Q15M PRN IV DECREASED GLUCOSE; Start 08/04/16 at 21:30 Glucagon (Glucagen) 1 mg Q15M PRN IM DECREASED GLUCOSE; Start 08/04/16 at 21:30 Glucose (Glutose) 15 gm Q15M PRN BUCCAL DECREASED GLUCOSE; Start 08/04/16 at 21 :30 Rifampin (Rifampin) 600 mg TuThSa PO Last administered on 08/08/16 10:24; Admin Dose 600 MG; Start 08/06/16 at 09:00 JORDI UMAÑA NP Aug 09, 2016 20:27
[2016-08-09] MEDS: ACETAMINOPHEN 325 MG TAB PO PRN (20:28)
[2016-08-10] MEDS: IPRATROPIUM (NEB) 0.5 MG/2.5 ML AMP INH SCH ×4 (02:00→20:14)
[2016-08-10] MEDS: LEVALBUTEROL (NEB) 0.63 MG/3 ML AMP INH SCH ×4 (02:00→20:14)
[2016-08-10] MEDS: FUROSEMIDE 40 MG TAB PO SCH (06:32)
[2016-08-10] MEDS: PANTOPRAZOLE (EC) 40 MG TAB PO SCH (06:32)
[2016-08-10] MEDS: LEVOTHYROXINE 50 MCG TAB PO SCH (06:32)
[2016-08-10 07:30] VITALS: BP 101/59; RESP 18
[2016-08-10] MEDS: Insulin NOVOLOG SS MILD Algorithm (SS with meals and bedtime) SC SCH ×3 (08:18→17:05)
[2016-08-10] MEDS: GLIMEPIRIDE 2 MG TAB PO SCH (08:18)
[2016-08-10] MEDS: CHOLECALCIFEROL 1,000 UNIT TAB PO SCH (08:19)
[2016-08-10] MEDS: ASCORBIC ACID 500 MG TAB PO SCH (08:19)
[2016-08-10] MEDS: PRIMIDONE 50 MG TAB PO SCH ×2 (08:19→20:48)
[2016-08-10] MEDS: CYANOCOBALAMIN 500 MCG TAB PO SCH (08:19)
[2016-08-10] MEDS: predniSONE 10 MG TAB PO SCH (08:19)
[2016-08-10] MEDS: GUAIFENESIN LA 600 MG TABSR PO SCH ×2 (08:20→20:48)
[2016-08-10] MEDS: ASPIRIN 81 MG TAB PO SCH (08:20)
[2016-08-10] MEDS: ENOXAPARIN 40 MG/0.4 ML SYG SC SCH (08:21)
[2016-08-10] MEDS: DICLOFENAC SODIUM 1% GEL 100 GM TUBE TP SCH ×4 (08:22→20:50)
[2016-08-10] MEDS: NYSTATIN 30 GM POWDER BTL TOP SCH ×2 (08:22→20:50)
[2016-08-10] MEDS: POTASSIUM CHLORIDE (SR) 20 MEQ TAB PO SCH ×2 (08:28→20:49)
[2016-08-10] MEDS: POLYETHYLENE GLYCOL 17 GM PACKET PO SCH ×2 (08:28→09:35)
[2016-08-10 08:30] VITALS: BP 120/58; PULSE 84
[2016-08-10] MEDS: SOTALOL 80 MG TAB PO SCH ×2 (09:00→20:49)
[2016-08-10 12:00] VITALS: BP 129/59; PULSE 85
[2016-08-10] MEDS: METOPROLOL (XL) 100 MG TAB PO SCH (12:25)
--- NOTE | 2016-08-10 12:40 | PN ---
DATE: 08/10/2016 SUBJECTIVE: The patient is stable, no acute events overnight. No fevers, chills, nausea, vomiting, mild shortness of breath. OBJECTIVE: VITAL SIGNS: Blood pressure 120/58, respiration 18, pulse 84, temperature 97.9. HEENT: Head is normocephalic. NECK: Supple. HEART: Regular rate. LUNGS: Show diminished breath sounds at base. ABDOMEN: Soft, nontender to palpation. No rebound or guarding. EXTREMITIES: Negative for clubbing, cyanosis. No edema. DERMATOLOGIC: No rashes. MUSCULOSKELETAL: No joint effusions. NEUROLOGIC: No change in exam. MEDICATIONS: The patient's medications have been reviewed. LABORATORY DATA: Have been reviewed. No new labs. ASSESSMENT AND PLAN: 1. Acute respiratory failure secondary to chronic obstructive pulmonary disease exacerbation. The patient is currently stable. Continue current medical management. 2. Mycobacterium avium infection. Continue current treatment plan. Follow up with Infectious Dise ase. 3. Diabetes, continue Accu-Cheks and insulin sliding scale. 4. Hypertension. Continue current blood pressure regimen. 5. Anemia. Continue to monitor hemoglobin and hematocrit levels. 6. Paroxysmal atrial fibrillation, patient is status post pacemaker. Continue to monitor. Follow up with cardiology. 7. Steroid-induced myopathy, improving. 8. Depression. Continue Cymbalta. 9. Diastolic heart failure, improved. Continue to monitor. 10. Hypothyroidism. Continue Synthroid. 11. General debility. Continue PT, OT. 12. Gastrointestinal and deep venous thrombosis prophylaxis. Continue proton pump inhibitor and Lo venox. Dictated By: BAILEY JEAN/BENJAMIN Conf#: [id number] DID#: [id number]
--- NOTE | 2016-08-10 12:51 | CONS ---
Date/Time of Note Date/Time of Note DATE: 08/10/16 TIME: 12:51 Consult Date/Type/Reason Admit Date/Time Aug 04, 2016 at 18:33 Subjective Stomach upset this morning Objective Vital Signs Date Time Temp Pulse Resp B/P Pulse Ox O2 Delivery O2 Flow Rate FiO2 08/10/16 12:00 85 129/59 97 Nasal Cannula 1.0 08/10/16 09:47 18 08/10/16 07:30 97.9 08/08/16 14:54 21 Intake and Output 08/09/16 08/09/16 08/10/16 15:00 23:00 07:00 Intake Total 360 ml 400 ml Output Total 1 ml Balance 359 ml 400 ml pulm- cta abd-soft,nt INTERDISCIPLINARY TEAM CONFERENCE BOWEL- Cont BLADDER-Cont SKIN- intact OT- DRESSING-min BATHING-mn TOILETING-min PT- BED MOBILITY-min TRANSFERS-cga AMBULATION-cga 100 feet A/P- Interdisciplinary team conference held today. Please see interdisciplinary sheet. Working toward d.c. on 08/14 with post discharge follow up of physical therapy, occupational therapy. Results/Medications Result Diagram: 08/06/1618 08/06/16 0715 Results 24 hrs Laboratory Tests Test 08/09/16 16:38 08/10/16 07:22 08/10/16 11:43 Bedside Glucose 151 156 207 Medications Current Medications Acetaminophen (Tylenol Tab) 650 mg Q6H PRN PO PAIN AND OR ELEVATED TEMP Last administered on 08/09/16 20:28; Admin Dose 650 MG; Start 08/04/16 at 21:00 Ascorbic Acid (Vitamin C) 1,000 mg DAILY PO Last administered on 08/10/16 08: 19; Admin Dose 1,000 MG; Start 08/05/16 at 09:00 Aspirin (Aspirin) 81 mg DAILY PO Last administered on 08/10/16 08:20; Admin Dose 81 MG; Start 08/05/16 at 09:00 Azithromycin (Zithromax) 500 mg TuThSa@09 PO Last administered on 08/08/16 10: 23; Admin Dose 500 MG; Start 08/06/16 at 09:00 Cholecalciferol (Vitamin D) 1,000 unit DAILY PO Last administered on 08/10/16 08:19; Admin Dose 1,000 UNIT; Start 08/05/16 at 09:00 Cyanocobalamin (Vitamin B12) 1,000 mcg DAILY PO Last administered on 08/10/16 08:19; Admin Dose 1,000 MCG; Start 08/05/16 at 09:00 Diclofenac Sodium (Voltaren 1% Gel) 1 gm QID TP Last administered on 08/10/16 08:22; Admin Dose 1 GM; Start 08/04/16 at 21:00 Docusate Sodium (Colace) 100 mg Q8H PRN PO CONSTIPATION; Start 08/04/16 at 21: 00 Duloxetine HCl (Cymbalta) 30 mg HS PO Last administered on 08/09/16 20:22; Admin Dose 30 MG; Start 08/04/16 at 21:00 Enoxaparin Sodium (Lovenox) 40 mg DAILY SC Last administered on 08/10/16 08:21 ; Admin Dose 40 MG; Start 08/05/16 at 09:00 Ethambutol HCl (Myambutol) 1,200 mg TuThSa@09 PO Last administered on 10:24; Admin Dose 1,200 MG; Start 08/06/16 at 09:00 Furosemide (Lasix) 40 mg DAILY@06 PO Last administered on 08/10/16 06:32; Admin Dose 40 MG; Start 08/05/16 at 06:00 Guaifenesin (Mucinex) 1,200 mg BID PO Last administered on 08/10/16 08:20; Admin Dose 1,200 MG; Start 08/04/16 at 21:00 Ibuprofen (Motrin) 200 mg HS PRN PO ARTHRITIS PAIN; Start 08/04/16 at 21:00 Levothyroxine Sodium (Synthroid) 50 mcg DAILY@06 PO Last administered on 06:32; Admin Dose 50 MCG; Start 08/05/16 at 06:00 Metoprolol Succinate (Toprol Xl) 100 mg DAILY PO Last administered on 12:25; Admin Dose 100 MG; Start 08/05/16 at 09:00 Nystatin (Nystatin Powder) 1 applic BID TOP Last administered on 08/10/16 08: 22; Admin Dose 1 APPLIC; Start 08/04/16 at 21:00 Polyethylene Glycol (Miralax) 17 gm DAILY PO Last administered on 08/10/16 09: 35; Admin Dose 17 GM; Start 08/05/16 at 09:00 Polyethylene Glycol (Miralax) 17 gm DAILY PRN PO CONSTIPATION; Start 08/04/16 at 21:00 Potassium Chloride (Klor-Con 20) 20 meq BID PO Last administered on 08/10/16 08:28; Admin Dose 20 MEQ; Start 08/04/16 at 21:00 Prednisone (Prednisone) 10 mg DAILY PO Last administered on 08/10/16 08:19; Admin Dose 10 MG; Start 08/05/16 at 09:00 Primidone (Mysoline) 50 mg BID PO Last administered on 08/10/16 08:19; Admin Dose 50 MG; Start 08/04/16 at 22:00 Ranitidine HCl (Zantac) 150 mg HS PO Last administered on 08/09/16 20:22; Admin Dose 150 MG; Start 08/04/16 at 21:00 Sotalol HCl (Betapace) 80 mg Q12 PO Last administered on 08/09/16 20:22; Admin Dose 80 MG; Start 08/04/16 at 21:00 Al Hydrox/Mg Hydrox/Simethicone (Mag-Al Plus) 30 ml Q4H PRN PO GASTROINTESTINAL UPSET Last administered on 08/08/16 19:21; Admin Dose 30 ML; Start 08/04/16 at 21:00 Miscellaneous Information 1 ea NOTE XX ; Start 08/04/16 at 21:30 Glucose (Glutose) 15 gm Q15M PRN PO DECREASED GLUCOSE; Start 08/04/16 at 21:30 Glucose (Glutose) 22.5 gm Q15M PRN PO DECREASED GLUCOSE; Start 08/04/16 at 21: 30 Dextrose (D50w Syringe) 25 ml Q15M PRN IV DECREASED GLUCOSE; Start 08/04/16 at 21:30 Dextrose (D50w Syringe) 50 ml Q15M PRN IV DECREASED GLUCOSE; Start 08/04/16 at 21:30 Glucagon (Glucagen) 1 mg Q15M PRN IM DECREASED GLUCOSE; Start 08/04/16 at 21:30 Glucose (Glutose) 15 gm Q15M PRN BUCCAL DECREASED GLUCOSE; Start 08/04/16 at 21 :30 Rifampin (Rifampin) 600 mg TuThSa PO Last administered on 08/08/16t 10:24; Admin Dose 600 MG; Start 08/06/16 at 09:00 REED FERNANDES MD Aug 10, 2016 12:51
[2016-08-10 20:00] VITALS: BP 130/61; PULSE 84
[2016-08-10 20:31] VITALS: BP 108/55; RESP 19
[2016-08-10] MEDS: RANITIDINE 150 MG TAB PO SCH (20:49)
[2016-08-10] MEDS: DULOXETINE 30 MG CAP DR PO SCH (20:49)
[2016-08-10] MEDS: ACETAMINOPHEN 325 MG TAB PO PRN (20:54)
--- NOTE | 2016-08-10 20:55 | PN ---
DATE: 08/10/2016 CARDIOLOGY FOLLOWUP SUBJECTIVE: Discussed with the staff and the patient's son. The patient had mild chest discomfort this morning. Stated that it felt like her heartburn pain. Denies any palpitations to me. Denies any bleeding to me. MEDICATIONS: Reviewed as per medical reconciliation, personally reviewed. PHYSICAL EXAMINATION: VITAL SIGNS: Temperature 97.9, heart rate of 85, blood pressure 129/59, respiration rate of 20, sat urating 97%. HEENT: Normocephalic, atraumatic. Pupils are equal. CARDIOVASCULAR: Regular rate and rhythm. Systolic murmur. PULMONARY: With no wheezes anteriorly, mild rhonchi. GASTROINTESTINAL: Soft, nontender. No rebound or guarding. EXTREMITIES: With trivial lower extremity edema. NEUROLOGIC: Awake and alert. Responds appropriately. PSYCHIATRIC: Appears to be calm and very pleasant. DERMATOLOGIC: There are multiple ecchymoses. LABORATORY: Glucose is 143. ASSESSMENT AND PLAN: 1. Atrial fibrillation, paroxysmal. 2. Sick sinus syndrome status post permanent pacemaker. 3. Atypical chest pain. 4. Myopathy and debility. 5. History of congestive heart failure secondary to diastolic dysfunction. 6. Thyroid disorder. 7. History of mycobacterium avium complex infection and chronic bronchitis. RECOMMENDATIONS: We will try to get the old record from ____ office including her old stress te st report. Will check the echocardiogram. Repeat the cardiac enzymes tomorrow. We will continue w ith the rest of her cardiac care. Dictated By: KHLOE LENNON/BENJAMIN Conf#: [id number] DID#: [id number] CC: BRIAN MEDEL DO; BAILEY WICK DO;*EndCC*
[2016-08-11] MEDS: IPRATROPIUM (NEB) 0.5 MG/2.5 ML AMP INH SCH ×4 (01:43→20:37)
[2016-08-11] MEDS: LEVALBUTEROL (NEB) 0.63 MG/3 ML AMP INH SCH ×4 (01:43→20:37)
[2016-08-11] MEDS: PANTOPRAZOLE (EC) 40 MG TAB PO SCH (06:28)
[2016-08-11] MEDS: LEVOTHYROXINE 50 MCG TAB PO SCH (06:29)
[2016-08-11] MEDS: FUROSEMIDE 40 MG TAB PO SCH (06:29)
[2016-08-11 07:00] LABS: ADD SCAN DIFF NO
[2016-08-11] MEDS: Insulin NOVOLOG SS MILD Algorithm (SS with meals and bedtime) SC SCH ×3 (07:05→17:05)
[2016-08-11 07:07] LABS: BASOPHILS % 0.3 % (0.0-2.0); EOSINOPHILS # 0.2 10^3/ul (0.0-0.5); EOSINOPHILS % 2.2 % (0.0-7.0); HEMATOCRIT 31.5 % (37.0-47.0); HEMOGLOBIN 9.6 g/dl (12.0-16.0); LYMPHOCYTES # 3.4 10^3/ul (0.8-2.9); LYMPHOCYTES % 39.4 % (15.0-51.0); MEAN CORPUSCULAR HEMOGLOBIN 25.4 pg (29.0-33.0); MEAN CORPUSCULAR HGB CONC 30.5 g/dl (32.0-37.0); MEAN CORPUSCULAR VOLUME 83.3 fl (82.0-101.0); MEAN PLATELET VOLUME 10.8 fl (7.4-10.4); MONOCYTE # 1.1 10^3/ul (0.3-0.9); MONOCYTES % 13.2 % (0.0-11.0); NEUTROPHIL # 3.8 10^3/ul (1.6-7.5); NEUTROPHILS % 44.2 % (39.0-77.0); PLATELET COUNT 281 10^3/UL (140-415); RED BLOOD COUNT 3.78 10^6/ul (4.20-5.40); RED CELL DISTRIBUTION WIDTH 19.9 % (11.5-14.5); WHITE BLOOD COUNT 8.6 10^3/ul (4.8-10.8)
[2016-08-11 07:16] LABS: ALBUMIN 3.1 g/dl (3.3-4.9)
[2016-08-11 07:17] LABS: POTASSIUM 4.2 mmol/L (3.5-5.1)
[2016-08-11 07:18] LABS: CREATININE 0.79 mg/dl (0.44-1.00)
[2016-08-11 07:19] LABS: ALBUMIN/GLOBULIN RATIO 0.93; TOTAL PROTEIN 6.4 g/dl (6.1-8.1)
[2016-08-11 07:20] LABS: CALCIUM 9.3 mg/dl (8.4-10.2)
[2016-08-11 07:24] LABS: MAGNESIUM 2.1 mg/dl (1.7-2.5)
[2016-08-11 07:38] VITALS: BP 121/57; PULSE 70; RESP 20
[2016-08-11 07:49] LABS: THYROID STIMULATING HORMONE 1.7 MIU/L (0.465-4.680)
[2016-08-11 08:08] LABS: CREATINE KINASE < 20 IU/L (23-200)
[2016-08-11 08:16] LABS: CK-MB 0.68 ng/ml (0.0-2.4)
[2016-08-11 08:19] LABS: TROPONIN-I 0.018 ng/ml (0.00-0.12)
[2016-08-11] MEDS: METOPROLOL (XL) 100 MG TAB PO SCH (09:00)
[2016-08-11] MEDS: DICLOFENAC SODIUM 1% GEL 100 GM TUBE TP SCH ×4 (09:00→21:24)
[2016-08-11] MEDS: NYSTATIN 30 GM POWDER BTL TOP SCH ×2 (09:00→21:29)
[2016-08-11] MEDS: PRIMIDONE 50 MG TAB PO SCH ×2 (09:47→21:24)
[2016-08-11] MEDS: CHOLECALCIFEROL 1,000 UNIT TAB PO SCH (09:47)
[2016-08-11] MEDS: ASCORBIC ACID 500 MG TAB PO SCH (09:47)
[2016-08-11] MEDS: GUAIFENESIN LA 600 MG TABSR PO SCH ×2 (09:47→21:24)
[2016-08-11] MEDS: POTASSIUM CHLORIDE (SR) 20 MEQ TAB PO SCH ×2 (09:48→21:24)
[2016-08-11] MEDS: GLIMEPIRIDE 2 MG TAB PO SCH (09:48)
[2016-08-11] MEDS: CYANOCOBALAMIN 500 MCG TAB PO SCH (09:48)
[2016-08-11] MEDS: ASPIRIN 81 MG TAB PO SCH (09:48)
[2016-08-11] MEDS: predniSONE 10 MG TAB PO SCH (09:49)
[2016-08-11] MEDS: POLYETHYLENE GLYCOL 17 GM PACKET PO SCH (09:50)
[2016-08-11] MEDS: SOTALOL 80 MG TAB PO SCH ×2 (09:50→21:27)
[2016-08-11] MEDS: ENOXAPARIN 40 MG/0.4 ML SYG SC SCH (09:51)
[2016-08-11] MEDS: RIFAMPIN 300 MG CAP PO SCH (10:00)
[2016-08-11] MEDS: ETHAMBUTOL 400 MG TAB PO SCH (10:00)
[2016-08-11] MEDS: AZITHROMYCIN 250 MG TAB PO SCH (10:00)
--- NOTE | 2016-08-11 11:10 | PN ---
DATE: 08/11/2016 SUBJECTIVE: The patient is stable, no acute events overnight. No fevers, chills, nausea, vomiting. No shortness of breath. OBJECTIVE: VITAL SIGNS: Blood pressure is 121/57, respirations 20, pulse 78, temperature 98.1. HEENT: Head is normocephalic. NECK: Supple. HEART: Regular rate. LUNGS: Show diminished breath sounds at base. ABDOMEN: Soft, nontender to palpation. No rebound or guarding. EXTREMITIES: Negative for clubbing, cyanosis. No edema. DERMATOLOGIC: No rashes. MUSCULOSKELETAL: No joint effusions. NEUROLOGIC: No change in exam. MEDICATIONS: The patient's medications reviewed. LABORATORY DATA: Showed sodium 136, potassium 4.2, BUN 21, creatinine 0.79. White count 8.6, hemog lobin 9.6, hematocrit 31.5, platelet count 281. ASSESSMENT AND PLAN: 1. Acute respiratory failure secondary to chronic obstructive pulmonary disease exacerbation. The patient is currently stable. Continue current medical management, nebulizers, supplemental oxygen. 2. Mycobacterium avium infection. The patient is stable. Continue current antibiotic regimen. Fo llow up with infectious disease. 3. Diabetes. Continue current insulin regimen. 4. Hypertension. Continue current blood pressure regimen. 5. Anemia. Continue to monitor hemoglobin and hematocrit levels. 6. Paroxysmal atrial fibrillation, status post pacemaker. Interrogation is ongoing by cardiology. Continue to monitor. 7. Steroid-induced myopathy, improving. 8. Depression. Continue Cymbalta. 9. Diastolic heart failure, improved. Continue medical management. 10. Hypothyroidism. Continue Synthroid. 11. Gastrointestinal and deep venous thrombosis prophylaxis. Continue proton pump inhibitor and Lo venox. 12. General debility. Continue PT, OT. Dictated By: BAILEY JEAN/NTS Conf#: [id number] DID#: [id number]
--- NOTE | 2016-08-11 11:14 | CONS ---
Date/Time of Note Date/Time of Note DATE: 08/11/16 TIME: 11:13 Consult Date/Type/Reason Admit Date/Time Aug 04, 2016 at 18:33 Subjective reports feeling better currently Objective Vital Signs Date Time Temp Pulse Resp B/P Pulse Ox O2 Delivery O2 Flow Rate FiO2 08/11/16 08:46 Nasal Cannula 1.0 08/11/16 07:38 98.1 70 20 121/57 99 08/08/16 14:54 21 Intake and Output 08/10/16 08/10/16 08/11/16 15:00 23:00 07:00 Intake Total 420 ml 900 ml Output Total 2 ml Balance 420 ml 898 ml pulm-cta min assist ambulation Results/Medications Result Diagram: 08/11/16 0636 08/11/16 0635 Results 24 hrs Laboratory Tests Test 08/10/16 11:43 08/10/16 17:11 08/11/16 06:35 08/11/16 06:36 Bedside Glucose 207 111 Alanine Aminotransferase (ALT/SGPT) 38 Albumin 3.1 L Albumin/Globulin Ratio 0.93 Alkaline Phosphatase 106 Anion Gap 13 Aspartate Amino Transf (AST/SGOT) 26 Blood Urea Nitrogen 21 H Calcium Level 9.3 Carbon Dioxide Level 32 H Chloride Level 95 L Creatinine 0.79 Direct Bilirubin 0.00 Free Thyroxine 1.27 Globulin 3.30 H Glucose Level 116 Indirect Bilirubin 0.0 Potassium Level 4.2 Sodium Level 136 Thyroid Stimulating Hormone (TSH) 1.700 Total Bilirubin 0.0 L Total Protein 6.4 Basophils # 0.0 Basophils % 0.3 Creatine Kinase < 20 L Creatine Kinase Index Creatinine Kinase MB (Mass) 0.68 Eosinophils # 0.2 Eosinophils % 2.2 Hematocrit 31.5 L Hemoglobin 9.6 L Lymphocytes # 3.4 H Lymphocytes % 39.4 Magnesium Level 2.1 Mean Corpuscular Hemoglobin 25.4 L Mean Corpuscular Hemoglobin Concent 30.5 L Mean Corpuscular Volume 83.3 Mean Platelet Volume 10.8 H Monocytes # 1.1 H Monocytes % 13.2 H Neutrophils # 3.8 Neutrophils % 44.2 Nucleated Red Blood Cells # 0.0 Nucleated Red Blood Cells % 0.0 Phosphorus Level 4.0 Platelet Count 281 Red Blood Count 3.78 L Red Cell Distribution Width 19.9 H Troponin I 0.018 White Blood Count 8.6 Test 08/11/16 07:33 Bedside Glucose 119 Medications Current Medications Acetaminophen (Tylenol Tab) 650 mg Q6H PRN PO PAIN AND OR ELEVATED TEMP Last administered on 08/10/16 20:54; Admin Dose 650 MG; Start 08/04/16 at 21:00 Ascorbic Acid (Vitamin C) 1,000 mg DAILY PO Last administered on 08/11/16 09: 47; Admin Dose 1,000 MG; Start 08/05/16 at 09:00 Aspirin (Aspirin) 81 mg DAILY PO Last administered on 08/11/16 09:48; Admin Dose 81 MG; Start 08/05/16 at 09:00 Azithromycin (Zithromax) 500 mg TuThSa@09 PO Last administered on 08/11/16 10: 00; Admin Dose 500 MG; Start 08/06/16 at 09:00 Cholecalciferol (Vitamin D) 1,000 unit DAILY PO Last administered on 08/11/16 09:47; Admin Dose 1,000 UNIT; Start 08/05/16 at 09:00 Cyanocobalamin (Vitamin B12) 1,000 mcg DAILY PO Last administered on 08/11/16 09:48; Admin Dose 1,000 MCG; Start 08/05/16 at 09:00 Diclofenac Sodium (Voltaren 1% Gel) 1 gm QID TP Last administered on 08/10/16 20:50; Admin Dose 1 GM; Start 08/04/16 at 21:00 Docusate Sodium (Colace) 100 mg Q8H PRN PO CONSTIPATION; Start 08/04/16 at 21: 00 Duloxetine HCl (Cymbalta) 30 mg HS PO Last administered on 08/10/16 20:49; Admin Dose 30 MG; Start 08/04/16 at 21:00 Enoxaparin Sodium (Lovenox) 40 mg DAILY SC Last administered on 08/11/16 09:51 ; Admin Dose 40 MG; Start 08/05/16 at 09:00 Ethambutol HCl (Myambutol) 1,200 mg TuThSa@09 PO Last administered on 10:00; Admin Dose 1,200 MG; Start 08/06/16 at 09:00 Furosemide (Lasix) 40 mg DAILY@06 PO Last administered on 08/11/16 06:29; Admin Dose 40 MG; Start 08/05/16 at 06:00 Guaifenesin (Mucinex) 1,200 mg BID PO Last administered on 08/11/16 09:47; Admin Dose 1,200 MG; Start 08/04/16 at 21:00 Ibuprofen (Motrin) 200 mg HS PRN PO ARTHRITIS PAIN; Start 08/04/16 at 21:00 Levothyroxine Sodium (Synthroid) 50 mcg DAILY@06 PO Last administered on 06:29; Admin Dose 50 MCG; Start 08/05/16 at 06:00 Metoprolol Succinate (Toprol Xl) 100 mg DAILY PO Last administered on 12:25; Admin Dose 100 MG; Start 08/05/16 at 09:00 Nystatin (Nystatin Powder) 1 applic BID TOP Last administered on 08/10/16 20: 50; Admin Dose 1 APPLIC; Start 08/04/16 at 21:00 Polyethylene Glycol (Miralax) 17 gm DAILY PO Last administered on 08/11/16 09: 50; Admin Dose 17 GM; Start 08/05/16 at 09:00 Polyethylene Glycol (Miralax) 17 gm DAILY PRN PO CONSTIPATION; Start 08/04/16 at 21:00 Potassium Chloride (Klor-Con 20) 20 meq BID PO Last administered on 08/11/16 09:48; Admin Dose 20 MEQ; Start 08/04/16 at 21:00 Prednisone (Prednisone) 10 mg DAILY PO Last administered on 08/11/16 09:49; Admin Dose 10 MG; Start 08/05/16 at 09:00 Primidone (Mysoline) 50 mg BID PO Last administered on 08/11/16 09:47; Admin Dose 50 MG; Start 08/04/16 at 22:00 Ranitidine HCl (Zantac) 150 mg HS PO Last administered on 08/10/16 20:49; Admin Dose 150 MG; Start 08/04/16 at 21:00 Sotalol HCl (Betapace) 80 mg Q12 PO Last administered on 08/11/16 09:50; Admin Dose 80 MG; Start 08/04/16 at 21:00 Al Hydrox/Mg Hydrox/Simethicone (Mag-Al Plus) 30 ml Q4H PRN PO GASTROINTESTINAL UPSET Last administered on 08/08/16 19:21; Admin Dose 30 ML; Start 08/04/16 at 21:00 Miscellaneous Information 1 ea NOTE XX ; Start 08/04/16 at 21:30 Glucose (Glutose) 15 gm Q15M PRN PO DECREASED GLUCOSE; Start 08/04/16 at 21:30 Glucose (Glutose) 22.5 gm Q15M PRN PO DECREASED GLUCOSE; Start 08/04/16 at 21: 30 Dextrose (D50w Syringe) 25 ml Q15M PRN IV DECREASED GLUCOSE; Start 08/04/16 at 21:30 Dextrose (D50w Syringe) 50 ml Q15M PRN IV DECREASED GLUCOSE; Start 08/04/16 at 21:30 Glucagon (Glucagen) 1 mg Q15M PRN IM DECREASED GLUCOSE; Start 08/04/16 at 21:30 Glucose (Glutose) 15 gm Q15M PRN BUCCAL DECREASED GLUCOSE; Start 08/04/16 at 21 :30 Rifampin (Rifampin) 600 mg TuThSa PO Last administered on 08/11/16 10:00; Admin Dose 600 MG; Start 08/06/16 at 09:00 Assessment/Plan Additional Assessment/Plan Rehab- Steroid myopathy. Patient making steady progress with rehab program, overall feeling better Status post chronic obstructive pulmonary disease exacerbation and pneumonia, chronic bronchitis. Degenerative joint disease. Hypertension. Paroxysmal atrial fibrillation-cardiology follow up Diabetes mellitus type 2. Anemia of chronic disease. Hypothyroidism. REED FERNANDES MD Aug 11, 2016 11:14
--- NOTE | 2016-08-11 15:42 | RADRPT ---
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 Physician: KHLOE MCGRATH Quality: Adequate Procedures: Transthoracic echocardiogram with complete 2D, M-Mode, and doppler examination. Indications: Atrial Fibrillation. Chest Pain. 2D/M Mode Doppler Measurement Value Normal Ranges Measurement Value Normal Ranges LVIDd 2D 3.6 3.5 - 5.6 cm AV Peak Morgan 0.9 m/sec LVIDs 2D 1.6 2.1 - 4.1 cm AV Peak PG 3.0 mmHg FS 2D 55.9 % AI Peak PG 37.0 mmHg LVPWd 2D 0.8 0.6 - 1.1 cm AI Peak Morgan 3.1 m/sec IVSd 2D 0.8 0.6 - 1.1 cm AI PHT 452.0 msec IVS/LVPW 2D 1.0 LVOT Peak Morgan 0.6 m/sec AoR Diam 2D 3.2 2.0 - 3.7 cm LVOT Peak PG 2.0 mmHg LA/Ao 2D 1 0 - 1 MV E Peak Morgan 1.1 m/sec EDV 2D 45.9 cm3 MV A Peak Morgan 0.5 m/sec ESV 2D 3.9 cm3 MV E/A 2.3 LA Dimen 2D 3.4 2.3 - 4.0 cm MV Decel Time 123 msec MV E/A 2.3 TR Peak Morgan 3.2 m/sec TR Peak PG 40.0 mmHg RVSP 43.0 mmHg Findings Left Ventricle: Normal left ventricular systolic function. Normal left ventricular cavity size. Normal left ventricular wall thickness. Ejection fraction is visually estimated at 55 %. Tissue Doppler/Mitral Doppler indices are indeterminate in this study due to the presence of atrial fibrillation. Right Ventricle: Normal right ventricular size. Normal right ventricular systolic function. Pacemaker right heart. Left Atrium: There is mild enlargement of left atrium. Right Atrium: The right atrium is normal in size. Mitral Valve: Mitral valve leaflets appear mildly thickened. Mild mitral annular calcification. Trace mitral regurgitation. Aortic Valve: No hemodynamically significant aortic stenosis by doppler. Aortic cusps appear mildly calcified. Mild aortic valve regurgitation. Tricuspid Valve: Normal appearance of the tricuspid valve. Estimated peak PA systolic pressure 43 mmHg. There is mild tricuspid regurgitation. Pulmonic Valve: Pulmonic valve not well visualized. Pericardium: Normal pericardium with no significant pericardial effusion. Aorta: Normal aortic root. IVC: Normal size and normal respiratory collapse consistent with normal right atrial pressure. Conclusions 1.Normal left ventricular systolic function. Normal left ventricular cavity size. Normal left ventricular wall thickness. Ejection fraction is visually estimated at 55 %. Tissue Doppler/Mitral Doppler indices are indeterminate in this study due to the presence of atrial fibrillation. 2.There is mild enlargement of left atrium. 3.Mitral valve leaflets appear mildly thickened. Mild mitral annular calcification. Trace mitral regurgitation. 4.No hemodynamically significant aortic stenosis by doppler. Aortic cusps appear mildly calcified. Mild aortic valve regurgitation. 5.Normal appearance of the tricuspid valve. Estimated peak PA systolic pressure 43 mmHg. There is mild tricuspid regurgitation. Electronically Signed By: Khloe Mcgrath 11-Aug-2016 15:41:09 -0800 Patient Name: SHONA SALGUERO Study Date: 11-Aug-2016 [id number]
--- NOTE | 2016-08-11 15:50 | RADRPT ---
Vent Rate: 77 bpm RR Interval: 0 msec KS Interval: 0 msec QRS Duration: 148 msec QT Interval: 482 msec QTC Interval: 545 msec P-R-T Clyde: 0 - 0 - 73 degrees Electronic ventricular pacemaker Electronically Signed By: Tien Mcgrath [id number]
[2016-08-11] MEDS: ACETAMINOPHEN 325 MG TAB PO PRN ×2 (16:44→21:24)
--- NOTE | 2016-08-11 16:47 | PN ---
DATE: 08/11/2016 CARDIOLOGY FOLLOWUP SUBJECTIVE: Discussed with the staff. The patient's old records were reviewed and discussed with t he patient's business intelligence consultant, ____. Patient intermittently, mild chest discomfort, but "not severe ". No palpitation. MEDICATIONS: Reviewed. PHYSICAL EXAMINATION: VITAL SIGNS: Temperature 98.1, Heart rate 72, blood pressure 110/68, respiratory rate of 19. Satur ating 97%. HEENT: Normocephalic, atraumatic. Pupils are equal. CARDIOVASCULAR: Regular rate and rhythm. PULMONARY: No wheezes. GASTROINTESTINAL: Soft. EXTREMITIES: With trivial edema. NEUROLOGIC: Awake, responds appropriately. PSYCHIATRIC: Appears to be calm and pleasant. LABORATORY: WBC of 8.6, hemoglobin 9.6, platelets 281. Sodium 132, potassium 4.2, BUN of 21, creat inine 0.79, glucose 116. Albumin is ____. Troponin negative. Review of the old chart stress test done which was obtained. Nuclear stress test from May 2016 showed no significant perfusion def ect. Echocardiogram was personally reviewed as well, which showed normal LV systolic function, eje ction fraction estimated about 55%. ASSESSMENT AND PLAN: 1. History of paroxysmal supraventricular tachycardia, currently stable, history of atrial flutter status post ablation, previous. 2. Status post biventricular pacemaker with [employer] pacemaker. 3. Myopathy. 4. Atypical chest pain with negative recent stress test. 5. Thyroid disorder. 6. Recent diagnosis of Mycobacterium avium complex infection (MAC). 7. Chronic bronchitis. RECOMMENDATIONS: Antibiotic as per internal medicine. Continue with physical therapy and rehabilit ation. Aspirin will be continued. Staff discussed with ____. The patient has not been a chad date for anticoagulation due to concern about multiple bleeding that she has had. Dictated By: KHLOE DAVIS MD AV/BENJAMIN Conf#: [id number] DID#: [id number]
[2016-08-11] MEDS: DULOXETINE 30 MG CAP DR PO SCH (21:24)
[2016-08-11] MEDS: AL HYDROX/MG HYDROX/SIMETH 30 ML CUP PO PRN (21:24)
[2016-08-11] MEDS: RANITIDINE 150 MG TAB PO SCH (21:29)
[2016-08-12] MEDS: IPRATROPIUM (NEB) 0.5 MG/2.5 ML AMP INH SCH ×4 (02:00→21:05)
[2016-08-12] MEDS: LEVALBUTEROL (NEB) 0.63 MG/3 ML AMP INH SCH ×4 (02:00→21:05)
[2016-08-12] MEDS: PANTOPRAZOLE (EC) 40 MG TAB PO SCH (06:26)
[2016-08-12] MEDS: LEVOTHYROXINE 50 MCG TAB PO SCH (06:26)
[2016-08-12] MEDS: FUROSEMIDE 40 MG TAB PO SCH (06:27)
[2016-08-12] MEDS: Insulin NOVOLOG SS MILD Algorithm (SS with meals and bedtime) SC SCH ×3 (07:05→17:05)
[2016-08-12 07:30] VITALS: BP 142/63; RESP 18
[2016-08-12] MEDS: GLIMEPIRIDE 2 MG TAB PO SCH (08:33)
[2016-08-12] MEDS: DICLOFENAC SODIUM 1% GEL 100 GM TUBE TP SCH ×4 (09:00→20:35)
[2016-08-12] MEDS: POTASSIUM CHLORIDE (SR) 20 MEQ TAB PO SCH ×2 (09:00→20:32)
[2016-08-12] MEDS: NYSTATIN 30 GM POWDER BTL TOP SCH ×2 (09:00→20:35)
[2016-08-12] MEDS: predniSONE 10 MG TAB PO SCH (10:17)
[2016-08-12] MEDS: GUAIFENESIN LA 600 MG TABSR PO SCH ×2 (10:17→20:34)
[2016-08-12] MEDS: ASPIRIN 81 MG TAB PO SCH (10:17)
[2016-08-12] MEDS: ASCORBIC ACID 500 MG TAB PO SCH (10:17)
[2016-08-12] MEDS: CHOLECALCIFEROL 1,000 UNIT TAB PO SCH (10:18)
[2016-08-12] MEDS: SOTALOL 80 MG TAB PO SCH ×2 (10:20→20:34)
[2016-08-12] MEDS: PRIMIDONE 50 MG TAB PO SCH ×2 (10:21→20:35)
[2016-08-12] MEDS: METOPROLOL (XL) 100 MG TAB PO SCH (10:29)
[2016-08-12] MEDS: CYANOCOBALAMIN 500 MCG TAB PO SCH (10:30)
[2016-08-12] MEDS: ENOXAPARIN 40 MG/0.4 ML SYG SC SCH (10:34)
--- NOTE | 2016-08-12 10:43 | PN ---
DATE: 08/12/2016 SUBJECTIVE: The patient is complaining about some numbness in her hands and feet. She describes he r neuropathy. No other acute events noted. No hemoptysis, hematemesis or hematochezia. OBJECTIVE: VITAL SIGNS: Blood pressure is 121/57, respiratory rate 20, pulse 70, temperature 98.1. HEENT: Head is normocephalic. NECK: Supple. HEART: Regular rate. LUNGS: Show diminished breath sounds at the base. ABDOMEN: Soft, nontender to palpation. No rebound or guarding. EXTREMITIES: Negative for clubbing, cyanosis. No edema. DERMATOLOGIC: No rashes. MUSCULOSKELETAL: No joint effusions. NEUROLOGIC: No change in exam. MEDICATIONS: The patient's medications have been reviewed. LABORATORY DATA: Has been reviewed. No new labs. ASSESSMENT AND PLAN: 1. Acute respiratory failure secondary to chronic obstructive pulmonary disease exacerbation. The patient is currently stable. Continue medical management and supplemental oxygen. 2. Mycobacterium avium infection. The patient is currently stable. Continue current antibiotic re gimen. 3. Diabetes. Continue current insulin regimen. 4. Hypertension. Continue current blood pressure regimen. 5. Anemia. Continue to monitor hemoglobin and hematocrit levels. 6. Paroxysmal atrial fibrillation status post pacemaker. We will continue to monitor. Follow up w [facility] cardiology. 7. Steroid-induced myopathy, improving. Continue to monitor. 8. Depression. Continue Cymbalta. 9. Diastolic heart failure. Continue current medical management. 10. Hypothyroidism. Continue Synthroid. 11. Neuropathy. The patient is currently on Cymbalta. We will increase dose to 60 mg and monitor. Dictated By: BAILEY JEAN/BENJAMIN Conf#: [id number] DID#: [id number]
[2016-08-12] MEDS: ACETAMINOPHEN 325 MG TAB PO PRN ×2 (10:50→19:32)
--- NOTE | 2016-08-12 11:26 | PN ---
DATE: 08/12/2016 CARDIOLOGY FOLLOWUP SUBJECTIVE: Discussed with the staff. Rhythm strip reviewed. The patient remains in rehabilitatio n, following physical therapy. No chest pain or pressure now. Has had minimal chest discomfort, mo stly on the right side actually, intermittently yesterday, mild. No palpitation. MEDICATIONS: Reviewed. PHYSICAL EXAMINATION: VITAL SIGNS: Temperature 98.1, heart rate of 77, blood pressure 121/57, respiratory rate of 18. HEENT: Normocephalic, atraumatic. Pupils are equal. CARDIOVASCULAR: Regular rate and rhythm, systolic murmur. CHEST: Status post pacemaker. PULMONARY: With no wheezes, no rhonchi. GASTROINTESTINAL: Soft, nontender. EXTREMITIES: Trivial edema. NEUROLOGIC: Awake, responds appropriately. PSYCHIATRIC: Appears to be calm and very pleasant. LABORATORY: Glucose was 147. ASSESSMENT AND PLAN: 1. Paroxysmal chest pain, appeared to be atypical, nonanginal, with recent stress test as an outpat ient, has been negative. 2. History of paroxysmal supraventricular tachycardia, currently remains stable. 3. Sick sinus syndrome, status post permanent pacemaker, with what appeared to be a biventricular p acemaker. 4. Myopathy, in rehabilitation. 5. Thyroid disorder, currently stable. 6. History of Mycobacterium avium complex infection. 7. Chronic bronchitis. RECOMMENDATIONS: Antibiotic is managed as per internal medicine and ID recommendation. Continue wi th the aspirin. I will check the EKG intermittently. Continue with physical therapy and rehab, con tinue the beta lucille as tolerated. Dictated By: KHLOE LENNON/BENJAMIN Conf#: [id number] DID#: [id number]
--- NOTE | 2016-08-12 13:10 | CONS ---
Date/Time of Note Date/Time of Note DATE: 08/12/16 TIME: 13:09 Consult Date/Type/Reason Admit Date/Time Aug 04, 2016 at 18:33 Subjective Visiting with family. No new complaints Objective pulm- cta abd-soft min assist ambulation Vital Signs Date Time Temp Pulse Resp B/P Pulse Ox O2 Delivery O2 Flow Rate FiO2 08/12/16 09:45 72 19 96 Nasal Cannula 1.0 08/12/16 07:30 98.5 142/63 08/08/16 14:54 21 Intake and Output 08/11/16 08/11/16 08/12/16 14:59 22:59 06:59 Intake Total 1200 ml Output Total 400 ml Balance -400 ml 1200 ml Results/Medications Result Diagram: 08/11/16 0636 08/11/16 0635 Results 24 hrs Laboratory Tests Test 08/11/16 16:47 08/11/16 21:21 08/12/16 07:54 08/12/16 11:52 Bedside Glucose 113 147 119 170 Medications Current Medications Acetaminophen (Tylenol Tab) 650 mg Q6H PRN PO PAIN AND OR ELEVATED TEMP Last administered on 08/12/16 10:50; Admin Dose 650 MG; Start 08/04/16 at 21:00 Ascorbic Acid (Vitamin C) 1,000 mg DAILY PO Last administered on 08/12/16 10:17 ; Admin Dose 1,000 MG; Start 08/05/16 at 09:00 Aspirin (Aspirin) 81 mg DAILY PO Last administered on 08/12/16 10:17; Admin Dose 81 MG; Start 08/05/16 at 09:00 Azithromycin (Zithromax) 500 mg TuThSa@09 PO Last administered on 08/11/16 10: 00; Admin Dose 500 MG; Start 08/06/16 at 09:00 Cholecalciferol (Vitamin D) 1,000 unit DAILY PO Last administered on 08/12/16 10:18; Admin Dose 1,000 UNIT; Start 08/05/16 at 09:00 Cyanocobalamin (Vitamin B12) 1,000 mcg DAILY PO Last administered on 08/12/16 10:30; Admin Dose 1,000 MCG; Start 08/05/16 at 09:00 Diclofenac Sodium (Voltaren 1% Gel) 1 gm QID TP Last administered on 08/12/16 10:50; Admin Dose 1 GM; Start 08/04/16 at 21:00 Docusate Sodium (Colace) 100 mg Q8H PRN PO CONSTIPATION; Start 08/04/16 at 21: 00 Enoxaparin Sodium (Lovenox) 40 mg DAILY SC Last administered on 08/12/16 10:34 ; Admin Dose 40 MG; Start 08/05/16 at 09:00 Ethambutol HCl (Myambutol) 1,200 mg TuThSa@09 PO Last administered on 10:00; Admin Dose 1,200 MG; Start 08/06/16 at 09:00 Furosemide (Lasix) 40 mg DAILY@06 PO Last administered on 08/12/16 06:27; Admin Dose 40 MG; Start 08/05/16 at 06:00 Guaifenesin (Mucinex) 1,200 mg BID PO Last administered on 08/12/16 10:17; Admin Dose 1,200 MG; Start 08/04/16 at 21:00 Ibuprofen (Motrin) 200 mg HS PRN PO ARTHRITIS PAIN Last administered on 01:21; Admin Dose 200 MG; Start 08/04/16 at 21:00 Levothyroxine Sodium (Synthroid) 50 mcg DAILY@06 PO Last administered on 06:26; Admin Dose 50 MCG; Start 08/05/16 at 06:00 Metoprolol Succinate (Toprol Xl) 100 mg DAILY PO Last administered on 08/12/16 10:29; Admin Dose 100 MG; Start 08/05/16 at 09:00 Nystatin (Nystatin Powder) 1 applic BID TOP Last administered on 08/12/16 09:00 ; Admin Dose 1 APPLIC; Start 08/04/16 at 21:00 Polyethylene Glycol (Miralax) 17 gm DAILY PO Last administered on 08/11/16 09: 50; Admin Dose 17 GM; Start 08/05/16 at 09:00 Polyethylene Glycol (Miralax) 17 gm DAILY PRN PO CONSTIPATION; Start 08/04/16 at 21:00 Potassium Chloride (Klor-Con 20) 20 meq BID PO Last administered on 08/12/16 09 :00; Admin Dose 20 MEQ; Start 08/04/16 at 21:00 Prednisone (Prednisone) 10 mg DAILY PO Last administered on 08/12/16 10:17; Admin Dose 10 MG; Start 08/05/16 at 09:00 Primidone (Mysoline) 50 mg BID PO Last administered on 08/12/16 10:21; Admin Dose 50 MG; Start 08/04/16 at 22:00 Ranitidine HCl (Zantac) 150 mg HS PO Last administered on 08/11/16 21:29; Admin Dose 150 MG; Start 08/04/16 at 21:00 Sotalol HCl (Betapace) 80 mg Q12 PO Last administered on 08/12/16 10:20; Admin Dose 80 MG; Start 08/04/16 at 21:00 Al Hydrox/Mg Hydrox/Simethicone (Mag-Al Plus) 30 ml Q4H PRN PO GASTROINTESTINAL UPSET Last administered on 08/11/16 21:24; Admin Dose 30 ML; Start 08/04/16 at 21:00 Miscellaneous Information 1 ea NOTE XX ; Start 08/04/16 at 21:30 Glucose (Glutose) 15 gm Q15M PRN PO DECREASED GLUCOSE; Start 08/04/16 at 21:30 Glucose (Glutose) 22.5 gm Q15M PRN PO DECREASED GLUCOSE; Start 08/04/16 at 21: 30 Dextrose (D50w Syringe) 25 ml Q15M PRN IV DECREASED GLUCOSE; Start 08/04/16 at 21:30 Dextrose (D50w Syringe) 50 ml Q15M PRN IV DECREASED GLUCOSE; Start 08/04/16 at 21:30 Glucagon (Glucagen) 1 mg Q15M PRN IM DECREASED GLUCOSE; Start 08/04/16 at 21:30 Glucose (Glutose) 15 gm Q15M PRN BUCCAL DECREASED GLUCOSE; Start 08/04/16 at 21 :30 Rifampin (Rifampin) 600 mg TuThSa PO Last administered on 08/11/16 10:00; Admin Dose 600 MG; Start 08/06/16 at 09:00 Duloxetine HCl (Cymbalta) 60 mg HS PO ; Start 08/12/16 at 21:00 Assessment/Plan Additional Assessment/Plan Rehab- Steroid myopathy. Continue rehab program. Anticipate wednesday Status post chronic obstructive pulmonary disease exacerbation and pneumonia, chronic bronchitis. Degenerative joint disease. Hypertension. Paroxysmal atrial fibrillation-cardiology follow up Diabetes mellitus type 2. Anemia of chronic disease. Hypothyroidism. REED FERNANDES MD Aug 12, 2016 13:10
--- NOTE | 2016-08-12 16:47 | PN ---
DATE: 08/12/2016 SUBJECTIVE: No events overnight. The patient is alert, feels good, looks comfortable. Denies pain, discomfort. WBC yesterday was 8.6, no shift, no bands. ANTIMICROBIALS: The patient is on: 1. Zithromax. 2. Ethambutol. 3. Rifampin. PHYSICAL EXAMINATION: GENERAL: Fragile, elderly woman in no distress. HEENT: Head atraumatic, normocephalic. Sclerae anicteric. Buccal mucosa pink. NECK: Supple. CHEST: Rise symmetrical. Breath sounds clear. HEART: S1, S2. ABDOMEN: Soft. Bowel tones present. EXTREMITIES: Without cyanosis. ASSESSMENT: 1. Mycobacterium avium intracellulare complex, covered with appropriate antimicrobials. 2. Coronary artery disease, history of paroxysmal atrial fibrillation and permanent pacemaker. 3. Hypertension. 4. Chronic obstructive pulmonary disease. 5. Bacteriuria, no active infection. PLAN: The patient remains stable. Continue present care. Continue acute rehab. Dictated By: SEAMUS ADAMS SUBWAY REPAIR SUPERVISOR for LATOYA LUO/BENJAMIN Conf#: [id number] DID#: [id number] MTDD
[2016-08-12 20:00] VITALS: BP 113/79; RESP 18
[2016-08-12] MEDS: RANITIDINE 150 MG TAB PO SCH (20:34)
[2016-08-12] MEDS: DULOXETINE 30 MG CAP DR PO SCH ×2 (20:34→20:43)
[2016-08-13] MEDS: LEVALBUTEROL (NEB) 0.63 MG/3 ML AMP INH SCH ×4 (02:00→20:47)
[2016-08-13] MEDS: IPRATROPIUM (NEB) 0.5 MG/2.5 ML AMP INH SCH ×4 (02:00→20:47)
[2016-08-13] MEDS: PANTOPRAZOLE (EC) 40 MG TAB PO SCH (06:10)
[2016-08-13] MEDS: LEVOTHYROXINE 50 MCG TAB PO SCH (06:10)
[2016-08-13] MEDS: FUROSEMIDE 40 MG TAB PO SCH (06:19)
[2016-08-13 06:20] VITALS: BP 116/56; PULSE 86
[2016-08-13] MEDS: GLIMEPIRIDE 2 MG TAB PO SCH (08:00)
[2016-08-13] MEDS: Insulin NOVOLOG SS MILD Algorithm (SS with meals and bedtime) SC SCH ×3 (08:56→17:05)
[2016-08-13] MEDS: ACETAMINOPHEN 325 MG TAB PO PRN ×2 (08:57→20:50)
[2016-08-13] MEDS: METOPROLOL (XL) 100 MG TAB PO SCH (08:58)
[2016-08-13] MEDS: SOTALOL 80 MG TAB PO SCH ×2 (08:58→20:51)
[2016-08-13] MEDS: PRIMIDONE 50 MG TAB PO SCH ×2 (08:58→20:52)
[2016-08-13] MEDS: POTASSIUM CHLORIDE (SR) 20 MEQ TAB PO SCH ×2 (08:58→20:50)
[2016-08-13] MEDS: CYANOCOBALAMIN 500 MCG TAB PO SCH (08:59)
[2016-08-13] MEDS: predniSONE 10 MG TAB PO SCH (08:59)
[2016-08-13] MEDS: ASPIRIN 81 MG TAB PO SCH (08:59)
[2016-08-13] MEDS: CHOLECALCIFEROL 1,000 UNIT TAB PO SCH (08:59)
[2016-08-13] MEDS: GUAIFENESIN LA 600 MG TABSR PO SCH ×2 (08:59→20:50)
[2016-08-13] MEDS: ASCORBIC ACID 500 MG TAB PO SCH (08:59)
[2016-08-13] MEDS: POLYETHYLENE GLYCOL 17 GM PACKET PO SCH (09:00)
--- NOTE | 2016-08-13 10:28 | PN ---
DATE: 08/13/2016 CARDIOLOGY FOLLOWUP SUBJECTIVE: Discussed with the staff. Patient with no chest pain or pressure, no palpitations, fee ling better. No bleeding. Continued physical therapy. MEDICATIONS: Reviewed. PHYSICAL EXAMINATION: VITAL SIGNS: Temperature 98.5, heart rate of 80, blood pressure 116/56, respiratory rate of 17, sat urating 95%. GENERAL: Normocephalic, atraumatic, elderly female, in no acute distress. HEENT: Pupils are equal. CARDIOVASCULAR: Regular rate and rhythm, a systolic murmur. CHEST: Status post pacemaker on the left side. GASTROINTESTINAL: Soft, nontender. PULMONARY: With no wheezes. EXTREMITIES: Trivial edema. NEUROLOGIC: Awake, responds appropriately. LABORATORY: Glucose 150. ASSESSMENT AND PLAN: 1. Intermittent chest pain. Currently has resolved. 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 2. History of paroxysmal supraventricular tachycardia. Currently remains in sinus rhythm and paced rhythm. 3. Sick sinus syndrome. Status post permanent pacemaker. 4. Myopathy and rehabilitation. 5. Thyroid disorder. Currently stable. 6. History of MAC infection. RECOMMENDATIONS: Antibiotic as per ID's recommendations. Will continue with the current cardiac c are. Aspirin will be continued. DVT prophylaxis will be continued as well. Dictated By: KHLOE LENNON/BENJAMIN Conf#: [id number] DID#: [id number] CC: BAILEY WICK DO;*EndCC*
--- NOTE | 2016-08-13 11:29 | PN ---
DATE: 08/13/2016 SUBJECTIVE: The patient continues to complain of neuropathic pain. No other events noted. OBJECTIVE: VITAL SIGNS: Blood pressure 116/56, respirations 17, pulse 80, temperature 98.5. HEENT: Head is normocephalic. NECK: Supple. HEART: Regular rate. LUNGS: Show diminished breath sounds at base. ABDOMEN: Soft, nontender to palpation without rebound or guarding. EXTREMITIES: Negative for clubbing, cyanosis, no edema. DERMATOLOGIC: No rashes. MUSCULOSKELETAL: No joint effusions. NEUROLOGIC: No change in exam. MEDICATIONS: The patient's medications have been reviewed. LABORATORY DATA: Have been reviewed. No new labs. ASSESSMENT AND PLAN: 1. Acute respiratory failure secondary to chronic obstructive pulmonary disease exacerbation. The patient is currently stable. Continue PT, OT. 2. Mycobacterium avium infection. The patient is currently stable. Continue current antibiotic re gimen. 3. Neuropathy. The patient's Cymbalta was increased to 60 mg p.o. at bedtime. Continue to monitor . 4. Diabetes. Continue current insulin regimen. 5. Hypertension. Current blood pressure regimen. 6. Anemia. Continue to monitor hemoglobin and hematocrit levels. 7. Paroxysmal atrial fibrillation, status post pacemaker. Continue to monitor. 8. Steroid-induced myopathy improved. 9. Depression. Continue Cymbalta. 10. Diastolic heart failure. Continue current medical management. 11. Hypothyroidism. Continue Synthroid. Dictated By: BAILEY JEAN/BENJAMIN Conf#: [id number] DID#: [id number]
--- NOTE | 2016-08-13 12:23 | CONS ---
Date/Time of Note Date/Time of Note DATE: 08/13/16 TIME: 12:22 Consult Date/Type/Reason Admit Date/Time Aug 04, 2016 at 18:33 Subjective Comfortable Objective pulm-cta abd-soft sba ambulation Vital Signs Date Time Temp Pulse Resp B/P Pulse Ox O2 Delivery O2 Flow Rate FiO2 08/13/16 07:46 2.0 08/13/16 07:45 80 17 95 Nasal Cannula 08/13/16 06:20 116/56 08/12/16 20:00 98.5 Intake and Output 08/12/16 08/12/16 08/13/16 15:00 23:00 07:00 Intake Total 660 ml 200 ml Output Total 500 ml Balance 660 ml -300 ml Results/Medications Result Diagram: 08/11/16 0636 08/11/16 0635 Results 24 hrs Laboratory Tests Test 08/12/16 17:28 08/13/16 08:02 08/13/16 11:53 Bedside Glucose 113 150 186 Medications Current Medications Acetaminophen (Tylenol Tab) 650 mg Q6H PRN PO PAIN AND OR ELEVATED TEMP Last administered on 08/13/16 08:57; Admin Dose 650 MG; Start 08/04/16 at 21:00 Ascorbic Acid (Vitamin C) 1,000 mg DAILY PO Last administered on 08/13/16 08:59 ; Admin Dose 1,000 MG; Start 08/05/16 at 09:00 Aspirin (Aspirin) 81 mg DAILY PO Last administered on 08/13/16 08:59; Admin Dose 81 MG; Start 08/05/16 at 09:00 Azithromycin (Zithromax) 500 mg TuThSa@09 PO Last administered on 08/11/16 10: 00; Admin Dose 500 MG; Start 08/06/16 at 09:00 Cholecalciferol (Vitamin D) 1,000 unit DAILY PO Last administered on 08/13/16 08:59; Admin Dose 1,000 UNIT; Start 08/05/16 at 09:00 Cyanocobalamin (Vitamin B12) 1,000 mcg DAILY PO Last administered on 08/13/16 08:59; Admin Dose 1,000 MCG; Start 08/05/16 at 09:00 Diclofenac Sodium (Voltaren 1% Gel) 1 gm QID TP Last administered on 08/12/16 20:35; Admin Dose 1 GM; Start 08/04/16 at 21:00 Docusate Sodium (Colace) 100 mg Q8H PRN PO CONSTIPATION; Start 08/04/16 at 21: 00 Enoxaparin Sodium (Lovenox) 40 mg DAILY SC Last administered on 08/12/16 10:34 ; Admin Dose 40 MG; Start 08/05/16 at 09:00 Ethambutol HCl (Myambutol) 1,200 mg TuThSa@09 PO Last administered on 10:00; Admin Dose 1,200 MG; Start 08/06/16 at 09:00 Furosemide (Lasix) 40 mg DAILY@06 PO Last administered on 08/13/16 06:19; Admin Dose 40 MG; Start 08/05/16 at 06:00 Guaifenesin (Mucinex) 1,200 mg BID PO Last administered on 08/13/16 08:59; Admin Dose 1,200 MG; Start 08/04/16 at 21:00 Levothyroxine Sodium (Synthroid) 50 mcg DAILY@06 PO Last administered on 06:10; Admin Dose 50 MCG; Start 08/05/16 at 06:00 Metoprolol Succinate (Toprol Xl) 100 mg DAILY PO Last administered on 08/13/16 08:58; Admin Dose 100 MG; Start 08/05/16 at 09:00 Nystatin (Nystatin Powder) 1 applic BID TOP Last administered on 08/12/16 20:35 ; Admin Dose 1 APPLIC; Start 08/04/16 at 21:00 Polyethylene Glycol (Miralax) 17 gm DAILY PO Last administered on 08/11/16 09: 50; Admin Dose 17 GM; Start 08/05/16 at 09:00 Polyethylene Glycol (Miralax) 17 gm DAILY PRN PO CONSTIPATION; Start 08/04/16 at 21:00 Potassium Chloride (Klor-Con 20) 20 meq BID PO Last administered on 08/13/16 08 :58; Admin Dose 20 MEQ; Start 08/04/16 at 21:00 Prednisone (Prednisone) 10 mg DAILY PO Last administered on 08/13/16 08:59; Admin Dose 10 MG; Start 08/05/16 at 09:00 Primidone (Mysoline) 50 mg BID PO Last administered on 08/13/16 08:58; Admin Dose 50 MG; Start 08/04/16 at 22:00 Ranitidine HCl (Zantac) 150 mg HS PO Last administered on 08/12/16 20:34; Admin Dose 150 MG; Start 08/04/16 at 21:00 Sotalol HCl (Betapace) 80 mg Q12 PO Last administered on 08/13/16 08:58; Admin Dose 80 MG; Start 08/04/16 at 21:00 Al Hydrox/Mg Hydrox/Simethicone (Mag-Al Plus) 30 ml Q4H PRN PO GASTROINTESTINAL UPSET Last administered on 08/11/16 21:24; Admin Dose 30 ML; Start 08/04/16 at 21:00 Miscellaneous Information 1 ea NOTE XX ; Start 08/04/16 at 21:30 Glucose (Glutose) 15 gm Q15M PRN PO DECREASED GLUCOSE; Start 08/04/16 at 21:30 Glucose (Glutose) 22.5 gm Q15M PRN PO DECREASED GLUCOSE; Start 08/04/16 at 21: 30 Dextrose (D50w Syringe) 25 ml Q15M PRN IV DECREASED GLUCOSE; Start 08/04/16 at 21:30 Dextrose (D50w Syringe) 50 ml Q15M PRN IV DECREASED GLUCOSE; Start 08/04/16 at 21:30 Glucagon (Glucagen) 1 mg Q15M PRN IM DECREASED GLUCOSE; Start 08/04/16 at 21:30 Glucose (Glutose) 15 gm Q15M PRN BUCCAL DECREASED GLUCOSE; Start 08/04/16 at 21 :30 Rifampin (Rifampin) 600 mg TuThSa PO Last administered on 08/11/16 10:00; Admin Dose 600 MG; Start 08/06/16 at 09:00 Duloxetine HCl (Cymbalta) 60 mg HS PO Last administered on 08/12/16 20:43; Admin Dose 30 MG; Start 08/12/16 at 21:00 Ibuprofen (Motrin) 200 mg TID PRN PO ARTHRITIS PAIN; Start 08/13/16 at 13:00 Assessment/Plan Additional Assessment/Plan Rehab- Steroid myopathy. Continue rehab program. Anticipate dc tomorrow Status post chronic obstructive pulmonary disease exacerbation and pneumonia, chronic bronchitis. Degenerative joint disease. Hypertension. Paroxysmal atrial fibrillation Diabetes mellitus type 2. Anemia of chronic disease. Hypothyroidism. REED FERNANDES MD Aug 13, 2016 12:23
[2016-08-13] MEDS: ETHAMBUTOL 400 MG TAB PO SCH (12:50)
[2016-08-13] MEDS: RIFAMPIN 300 MG CAP PO SCH (12:50)
[2016-08-13] MEDS: AZITHROMYCIN 250 MG TAB PO SCH (12:50)
[2016-08-13] MEDS: IBUPROFEN 200 MG TAB PO PRN (12:51)
[2016-08-13] MEDS: NYSTATIN 30 GM POWDER BTL TOP SCH ×2 (13:00→21:24)
[2016-08-13] MEDS: DICLOFENAC SODIUM 1% GEL 100 GM TUBE TP SCH ×3 (13:00→21:24)
[2016-08-13] MEDS: ENOXAPARIN 40 MG/0.4 ML SYG SC SCH (13:03)
[2016-08-13 16:16] VITALS: BP 134/50; RESP 15
[2016-08-13 20:00] VITALS: BP 116/54; RESP 20
[2016-08-13] MEDS: DULOXETINE 30 MG CAP DR PO SCH (20:50)
[2016-08-13] MEDS: RANITIDINE 150 MG TAB PO SCH (20:51)
[2016-08-14] MEDS: IPRATROPIUM (NEB) 0.5 MG/2.5 ML AMP INH SCH ×4 (02:00→20:17)
[2016-08-14] MEDS: LEVALBUTEROL (NEB) 0.63 MG/3 ML AMP INH SCH ×4 (02:00→20:17)
[2016-08-14] MEDS: IBUPROFEN 200 MG TAB PO PRN ×3 (03:41→20:12)
[2016-08-14] MEDS: LEVOTHYROXINE 50 MCG TAB PO SCH (06:41)
[2016-08-14] MEDS: PANTOPRAZOLE (EC) 40 MG TAB PO SCH (06:41)
[2016-08-14] MEDS: FUROSEMIDE 40 MG TAB PO SCH (06:42)
[2016-08-14] MEDS: GLIMEPIRIDE 2 MG TAB PO SCH (08:53)
[2016-08-14] MEDS: SOTALOL 80 MG TAB PO SCH ×2 (08:53→20:12)
[2016-08-14] MEDS: ASPIRIN 81 MG TAB PO SCH (08:53)
[2016-08-14] MEDS: POLYETHYLENE GLYCOL 17 GM PACKET PO SCH (08:54)
[2016-08-14] MEDS: POTASSIUM CHLORIDE (SR) 20 MEQ TAB PO SCH ×2 (08:54→20:12)
[2016-08-14] MEDS: PRIMIDONE 50 MG TAB PO SCH ×2 (08:54→20:12)
[2016-08-14] MEDS: GUAIFENESIN LA 600 MG TABSR PO SCH ×2 (08:54→20:12)
[2016-08-14] MEDS: predniSONE 10 MG TAB PO SCH (08:54)
[2016-08-14] MEDS: ASCORBIC ACID 500 MG TAB PO SCH (08:55)
[2016-08-14] MEDS: CYANOCOBALAMIN 500 MCG TAB PO SCH (08:55)
[2016-08-14] MEDS: METOPROLOL (XL) 100 MG TAB PO SCH (08:55)
[2016-08-14] MEDS: CHOLECALCIFEROL 1,000 UNIT TAB PO SCH (08:55)
[2016-08-14] MEDS: ENOXAPARIN 40 MG/0.4 ML SYG SC SCH (08:56)
[2016-08-14] MEDS: NYSTATIN 30 GM POWDER BTL TOP SCH ×2 (08:59→21:46)
[2016-08-14] MEDS: Insulin NOVOLOG SS MILD Algorithm (SS with meals and bedtime) SC SCH ×3 (09:00→17:05)
[2016-08-14] MEDS: DICLOFENAC SODIUM 1% GEL 100 GM TUBE TP SCH ×4 (09:01→21:45)
--- NOTE | 2016-08-14 09:30 | PN ---
DATE: 08/14/2016 SUBJECTIVE: The patient is stable. Has mild shortness of breath, but controlled with nebulized the rapy. No other acute events noted. OBJECTIVE: VITAL SIGNS: Blood pressure 116/54, respirations 20, pulse 67, temperature 98.6. HEENT: Head is normocephalic. NECK: Supple. HEART: Regular rate. LUNGS: Show diminished breath sounds at the base. ABDOMEN: Soft, nontender to palpation. No rebound or guarding. EXTREMITIES: Negative for clubbing, cyanosis, no edema. DERMATOLOGIC: No rashes. MUSCULOSKELETAL: No joint effusions. NEUROLOGIC: No change in exam. MEDICATIONS: The patient's medications have been reviewed. LABORATORY DATA: Have been reviewed. No new labs. ASSESSMENT AND PLAN: 1. Acute respiratory failure secondary to chronic obstructive pulmonary disease exacerbation. The patient is currently stable. Continue current medical management. 2. Mycobacterium avium infection. The patient is stable. Continue current antibiotic regimen. Fo llow up with infectious disease. 3. Neuropathy. Continue Cymbalta. 4. Diabetes. Continue current insulin regimen. 5. Hypertension. Continue current blood pressure regimen. 6. Anemia. Continue to monitor hemoglobin and hematocrit levels. 7. Paroxysmal atrial fibrillation, status post pacemaker. Continue to monitor. 8. Steroid-induced myopathy, improved. 9. Depression to Cymbalta. 10. Diastolic heart failure. Continue current medical management. 11. Hypothyroidism. Continue Synthroid. Dictated By: BAILEY JEAN/BENJAMIN Conf#: [id number] DID#: [id number]
[2016-08-14 09:46] VITALS: BP 127/58; RESP 18
--- NOTE | 2016-08-14 12:52 | DS ---
DATE OF ADMISSION: 08/04/2016 DATE OF DISCHARGE: 08/18/2016 ADMISSION DIAGNOSES 1. Steroid myopathy. 2. Status post chronic obstructive pulmonary disease exacerbation and pneumonia. 3. Chronic bronchitis. 4. Degenerative joint disease. 5. Hypertension. 6. Paroxysmal atrial fibrillation. 7. Diabetes mellitus. 8. Anemia. 9. Hypothyroidism. 10. Impairments in self-care and mobility. DISCHARGE DIAGNOSES: 1. Steroid myopathy. 2. Status post chronic obstructive pulmonary disease exacerbation and pneumonia. 3. Chronic bronchitis. 4. Degenerative joint disease. 5. Hypertension. 6. Paroxysmal atrial fibrillation. 7. Diabetes mellitus. 8. Anemia. 9. Hypothyroidism. 10. Improvements in self-care and mobility. HOSPITAL COURSE: The patient was admitted for comprehensive interdisciplinary acute rehab and made excellent functional gains during the course of the stay. The patient progressed from an initial moderate assist for self-care and mobility tasks and progressed to the point of standby assist for self-care and mobility, including ambulating 85 to 100 feet with the use of a front-wheel walker. The patient does have caregiver assistance and caregiver was able to demonstrate safe carryover of technique. Patient is being discharged home with the recommendation of home health physical therapy and occupational therapy followup. DISCHARGE MEDICATIONS: Per the medication reconciliation sheet. CONDITION ON DISCHARGE: Stable. Dictated By: REED BAEZ/BENJAMIN Conf#: [id number] DID#: [id number] MTDD
--- NOTE | 2016-08-14 13:26 | PN ---
DATE: 08/14/2016 CARDIOLOGY FOLLOWUP SUBJECTIVE: No new cardiac event. Patient complained of shortness of breath and feeling anxious. MEDICATIONS: Reviewed. PHYSICAL EXAMINATION: VITAL SIGNS: Temperature ____, heart rate 68, blood pressure 127/58, respiration rate of 18. HEENT: Normocephalic, atraumatic. Pupils are equal. CARDIOVASCULAR: Regular rate and rhythm, systolic murmur. PULMONARY: With no wheezes. GASTROINTESTINAL: Soft, nontender. EXTREMITIES: With trivial edema. NEUROLOGIC: Awake but anxious. PSYCHIATRIC: Anxious but pleasant. LABORATORY: Glucose is 212. ASSESSMENT AND PLAN: 1. Chronic obstructive pulmonary disease, currently stable. 2. History of mycobacterium avium infection. 3. Diabetes. 4. Paroxysmal supraventricular tachycardia and atrial fibrillation. 5. ____myopathy debility. 6. Status post permanent pacemaker. 7. Thyroid disorder. RECOMMENDATIONS: We will continue with the current cardiac care. Respiratory care as per internal medicine will be continued. Physical therapy and rehab as tolerated. Dictated By: KHLOE LENNON/BENJAMIN Conf#: [id number] DID#: [id number]
--- NOTE | 2016-08-14 13:39 | RADRPT ---
Vent Rate: 75 bpm RR Interval: 0 msec NE Interval: 0 msec QRS Duration: 142 msec QT Interval: 468 msec QTC Interval: 522 msec P-R-T Banner: 0 - 0 - 80 degrees Electronic ventricular pacemaker Electronically Signed By: Tien Mcgrath [id number]
[2016-08-14 20:00] VITALS: BP 109/55; RESP 19
[2016-08-14] MEDS: DULOXETINE 30 MG CAP DR PO SCH (20:11)
[2016-08-14] MEDS: RANITIDINE 150 MG TAB PO SCH (20:12)
[2016-08-15] MEDS: LEVALBUTEROL (NEB) 0.63 MG/3 ML AMP INH SCH ×4 (02:00→23:03)
[2016-08-15] MEDS: IPRATROPIUM (NEB) 0.5 MG/2.5 ML AMP INH SCH ×4 (02:00→23:03)
[2016-08-15] MEDS: LEVOTHYROXINE 50 MCG TAB PO SCH (06:49)
[2016-08-15] MEDS: PANTOPRAZOLE (EC) 40 MG TAB PO SCH (06:49)
[2016-08-15] MEDS: FUROSEMIDE 40 MG TAB PO SCH (06:50)
[2016-08-15 07:30] VITALS: BP 111/58; PULSE 88; RESP 18; RESP 20
[2016-08-15] MEDS: GLIMEPIRIDE 2 MG TAB PO SCH (08:24)
[2016-08-15] MEDS: AZITHROMYCIN 250 MG TAB PO SCH (08:25)
[2016-08-15] MEDS: CYANOCOBALAMIN 500 MCG TAB PO SCH (08:25)
[2016-08-15] MEDS: GUAIFENESIN LA 600 MG TABSR PO SCH ×2 (08:26→20:42)
[2016-08-15] MEDS: ETHAMBUTOL 400 MG TAB PO SCH (08:26)
[2016-08-15] MEDS: ASPIRIN 81 MG TAB PO SCH (08:26)
[2016-08-15] MEDS: POTASSIUM CHLORIDE (SR) 20 MEQ TAB PO SCH ×2 (08:27→20:42)
[2016-08-15] MEDS: PRIMIDONE 50 MG TAB PO SCH ×2 (08:27→20:43)
[2016-08-15] MEDS: ASCORBIC ACID 500 MG TAB PO SCH (08:27)
[2016-08-15] MEDS: CHOLECALCIFEROL 1,000 UNIT TAB PO SCH (08:27)
[2016-08-15] MEDS: predniSONE 10 MG TAB PO SCH (08:27)
[2016-08-15] MEDS: METOPROLOL (XL) 100 MG TAB PO SCH (08:28)
[2016-08-15] MEDS: POLYETHYLENE GLYCOL 17 GM PACKET PO SCH (08:29)
[2016-08-15] MEDS: SOTALOL 80 MG TAB PO SCH ×2 (08:29→20:43)
[2016-08-15] MEDS: Insulin NOVOLOG SS MILD Algorithm (SS with meals and bedtime) SC SCH ×3 (08:30→16:58)
[2016-08-15] MEDS: ENOXAPARIN 40 MG/0.4 ML SYG SC SCH (08:33)
[2016-08-15] MEDS: DICLOFENAC SODIUM 1% GEL 100 GM TUBE TP SCH ×4 (08:37→20:43)
[2016-08-15] MEDS: NYSTATIN 30 GM POWDER BTL TOP SCH ×2 (08:37→20:43)
[2016-08-15 08:42] VITALS: BP 134/74; PULSE 78; RESP 18
[2016-08-15] MEDS: RIFAMPIN 300 MG CAP PO SCH ×2 (09:00→12:19)
--- NOTE | 2016-08-15 09:29 | CONS ---
Date/Time of Note Date/Time of Note DATE: 08/15/16 TIME: :28 Consult Date/Type/Reason Admit Date/Time Aug 04, 2016 at 18:33 Initial Consult Date Subjective no new c/o. Objective Vital Signs Date Time Temp Pulse Resp B/P Pulse Ox O2 Delivery O2 Flow Rate FiO2 08/15/16 08:42 78 18 134/74 95 Nasal Cannula 1.0 08/15/16 07:30 97.8 Intake and Output 08/14/16 08/14/16 08/15/16 15:00 23:00 07:00 Intake Total 1300 ml 350 ml Balance 1300 ml 350 ml HEENT: Head is normocephalic. NECK: Supple. HEART: Regular rate. LUNGS: Show diminished breath sounds at the base. ABDOMEN: Soft, nontender to palpation. No rebound or guarding. EXTREMITIES: Negative for clubbing, cyanosis, no edema. DERMATOLOGIC: No rashes. MUSCULOSKELETAL: No joint effusions. NEUROLOGIC: No change in exam. Results/Medications Result Diagram: 08/11/16 0636 08/11/16 0635 Results 24 hrs Laboratory Tests Test 08/14/16 11:45 08/14/16 17:35 08/15/16 07:34 Bedside Glucose 212 79 162 Medications Current Medications Acetaminophen (Tylenol Tab) 650 mg Q6H PRN PO PAIN AND OR ELEVATED TEMP Last administered on 08/13/16 20:50; Admin Dose 650 MG; Start 08/04/16 at 21:00 Ascorbic Acid (Vitamin C) 1,000 mg DAILY PO Last administered on 08/15/16 08:27 ; Admin Dose 1,000 MG; Start 08/05/16 at 09:00 Aspirin (Aspirin) 81 mg DAILY PO Last administered on 08/15/16 08:26; Admin Dose 81 MG; Start 08/05/16 at 09:00 Azithromycin (Zithromax) 500 mg TuThSa@09 PO Last administered on 08/15/16 08: 25; Admin Dose 500 MG; Start 08/06/16 at 09:00 Cholecalciferol (Vitamin D) 1,000 unit DAILY PO Last administered on 08/15/16 08:27; Admin Dose 1,000 UNIT; Start 08/05/16 at 09:00 Cyanocobalamin (Vitamin B12) 1,000 mcg DAILY PO Last administered on 08/15/16 08:25; Admin Dose 1,000 MCG; Start 08/05/16 at 09:00 Diclofenac Sodium (Voltaren 1% Gel) 1 gm QID TP Last administered on 08/15/16 08:37; Admin Dose 1 GM; Start 08/04/16 at 21:00 Docusate Sodium (Colace) 100 mg Q8H PRN PO CONSTIPATION; Start 08/04/16 at 21: 00 Enoxaparin Sodium (Lovenox) 40 mg DAILY SC Last administered on 08/15/16 08:33 ; Admin Dose 40 MG; Start 08/05/16 at 09:00 Ethambutol HCl (Myambutol) 1,200 mg TuThSa@09 PO Last administered on 08/15/16 08:26; Admin Dose 1,200 MG; Start 08/06/16 at 09:00 Furosemide (Lasix) 40 mg DAILY@06 PO Last administered on 08/15/16 06:50; Admin Dose 40 MG; Start 08/05/16 at 06:00 Guaifenesin (Mucinex) 1,200 mg BID PO Last administered on 08/15/16 08:26; Admin Dose 1,200 MG; Start 08/04/16 at 21:00 Levothyroxine Sodium (Synthroid) 50 mcg DAILY@06 PO Last administered on 06:49; Admin Dose 50 MCG; Start 08/05/16 at 06:00 Metoprolol Succinate (Toprol Xl) 100 mg DAILY PO Last administered on 08/15/16 08:28; Admin Dose 100 MG; Start 08/05/16 at 09:00 Nystatin (Nystatin Powder) 1 applic BID TOP Last administered on 08/15/16 08:37 ; Admin Dose 1 APPLIC; Start 08/04/16 at 21:00 Polyethylene Glycol (Miralax) 17 gm DAILY PO Last administered on 08/15/16 08: 29; Admin Dose 17 GM; Start 08/05/16 at 09:00 Polyethylene Glycol (Miralax) 17 gm DAILY PRN PO CONSTIPATION; Start 08/04/16 at 21:00 Potassium Chloride (Klor-Con 20) 20 meq BID PO Last administered on 08/15/16 08 :27; Admin Dose 20 MEQ; Start 08/04/16 at 21:00 Prednisone (Prednisone) 10 mg DAILY PO Last administered on 08/15/16 08:27; Admin Dose 10 MG; Start 08/05/16 at 09:00 Primidone (Mysoline) 50 mg BID PO Last administered on 08/15/16 08:27; Admin Dose 50 MG; Start 08/04/16 at 22:00 Ranitidine HCl (Zantac) 150 mg HS PO Last administered on 08/14/16 20:12; Admin Dose 150 MG; Start 08/04/16 at 21:00 Sotalol HCl (Betapace) 80 mg Q12 PO Last administered on 08/15/16 08:29; Admin Dose 80 MG; Start 08/04/16 at 21:00 Al Hydrox/Mg Hydrox/Simethicone (Mag-Al Plus) 30 ml Q4H PRN PO GASTROINTESTINAL UPSET Last administered on 08/11/16 21:24; Admin Dose 30 ML; Start 08/04/16 at 21:00 Miscellaneous Information 1 ea NOTE XX ; Start 08/04/16 at 21:30 Glucose (Glutose) 15 gm Q15M PRN PO DECREASED GLUCOSE; Start 08/04/16 at 21:30 Glucose (Glutose) 22.5 gm Q15M PRN PO DECREASED GLUCOSE; Start 08/04/16 at 21: 30 Dextrose (D50w Syringe) 25 ml Q15M PRN IV DECREASED GLUCOSE; Start 08/04/16 at 21:30 Dextrose (D50w Syringe) 50 ml Q15M PRN IV DECREASED GLUCOSE; Start 08/04/16 at 21:30 Glucagon (Glucagen) 1 mg Q15M PRN IM DECREASED GLUCOSE; Start 08/04/16 at 21:30 Glucose (Glutose) 15 gm Q15M PRN BUCCAL DECREASED GLUCOSE; Start 08/04/16 at 21 :30 Rifampin (Rifampin) 600 mg TuThSa PO Last administered on 08/13/16 12:50; Admin Dose 600 MG; Start 08/06/16 at 09:00 Duloxetine HCl (Cymbalta) 60 mg HS PO Last administered on 08/14/16 20:11; Admin Dose 60 MG; Start 08/12/16 at 21:00 Ibuprofen (Motrin) 200 mg TID PRN PO ARTHRITIS PAIN Last administered on 3/3/ 17at 20:12; Admin Dose 200 MG; Start 08/13/16 at 13:00 Assessment/Plan Chief Complaint/Hosp Course 1. Acute respiratory failure secondary to chronic obstructive pulmonary disease exacerbation. The patient is currently stable. Continue current medical management. 2. Mycobacterium avium infection. The patient is stable. Continue current antibiotic regimen. Follow up with infectious disease. 3. Neuropathy. Continue Cymbalta. 4. Diabetes. Continue current insulin regimen. 5. Hypertension. Continue current blood pressure regimen. 6. Anemia. Continue to monitor hemoglobin and hematocrit levels. 7. Paroxysmal atrial fibrillation, status post pacemaker. Continue to monitor. 8. Steroid-induced myopathy, improved. 9. Depression to Cymbalta. 10. Diastolic heart failure. Continue current medical management. 11. Hypothyroidism. Continue Synthroid. Problems: JOSELYN PAULA MD Aug 15, 2016 09:29
--- NOTE | 2016-08-15 09:44 | CONS ---
Date/Time of Note Date/Time of Note DATE: 08/15/16 TIME: 09:44 Consult Date/Type/Reason Admit Date/Time Aug 04, 2016 at 18:33 Subjective Feels tired Objective pulm-cta sba ambulation Vital Signs Date Time Temp Pulse Resp B/P Pulse Ox O2 Delivery O2 Flow Rate FiO2 08/15/16 08:42 78 18 134/74 95 Nasal Cannula 1.0 08/15/16 07:30 97.8 Intake and Output 08/14/16 08/14/16 08/15/16 14:59 22:59 06:59 Intake Total 1300 ml 350 ml Balance 1300 ml 350 ml Results/Medications Result Diagram: 08/11/16 0636 08/11/16 0635 Results 24 hrs Laboratory Tests Test 08/14/16 11:45 08/14/16 17:35 08/15/16 07:34 Bedside Glucose 212 79 162 Medications Current Medications Acetaminophen (Tylenol Tab) 650 mg Q6H PRN PO PAIN AND OR ELEVATED TEMP Last administered on 08/13/16 20:50; Admin Dose 650 MG; Start 08/04/16 at 21:00 Ascorbic Acid (Vitamin C) 1,000 mg DAILY PO Last administered on 08/15/16 08:27 ; Admin Dose 1,000 MG; Start 08/05/16 at 09:00 Aspirin (Aspirin) 81 mg DAILY PO Last administered on 08/15/16 08:26; Admin Dose 81 MG; Start 08/05/16 at 09:00 Azithromycin (Zithromax) 500 mg TuThSa@09 PO Last administered on 08/15/16 08: 25; Admin Dose 500 MG; Start 08/06/16 at 09:00 Cholecalciferol (Vitamin D) 1,000 unit DAILY PO Last administered on 08/15/16 08:27; Admin Dose 1,000 UNIT; Start 08/05/16 at 09:00 Cyanocobalamin (Vitamin B12) 1,000 mcg DAILY PO Last administered on 08/15/16 08:25; Admin Dose 1,000 MCG; Start 08/05/16 at 09:00 Diclofenac Sodium (Voltaren 1% Gel) 1 gm QID TP Last administered on 08/15/16 08:37; Admin Dose 1 GM; Start 08/04/16 at 21:00 Docusate Sodium (Colace) 100 mg Q8H PRN PO CONSTIPATION; Start 08/04/16 at 21: 00 Enoxaparin Sodium (Lovenox) 40 mg DAILY SC Last administered on 08/15/16 08:33 ; Admin Dose 40 MG; Start 08/05/16 at 09:00 Ethambutol HCl (Myambutol) 1,200 mg TuThSa@09 PO Last administered on 08/15/16 08:26; Admin Dose 1,200 MG; Start 08/06/16 at 09:00 Furosemide (Lasix) 40 mg DAILY@06 PO Last administered on 08/15/16 06:50; Admin Dose 40 MG; Start 08/05/16 at 06:00 Guaifenesin (Mucinex) 1,200 mg BID PO Last administered on 08/15/16 08:26; Admin Dose 1,200 MG; Start 08/04/16 at 21:00 Levothyroxine Sodium (Synthroid) 50 mcg DAILY@06 PO Last administered on 06:49; Admin Dose 50 MCG; Start 08/05/16 at 06:00 Metoprolol Succinate (Toprol Xl) 100 mg DAILY PO Last administered on 08/15/16 08:28; Admin Dose 100 MG; Start 08/05/16 at 09:00 Nystatin (Nystatin Powder) 1 applic BID TOP Last administered on 08/15/16 08:37 ; Admin Dose 1 APPLIC; Start 08/04/16 at 21:00 Polyethylene Glycol (Miralax) 17 gm DAILY PO Last administered on 08/15/16 08: 29; Admin Dose 17 GM; Start 08/05/16 at 09:00 Polyethylene Glycol (Miralax) 17 gm DAILY PRN PO CONSTIPATION; Start 08/04/16 at 21:00 Potassium Chloride (Klor-Con 20) 20 meq BID PO Last administered on 08/15/16 08 :27; Admin Dose 20 MEQ; Start 08/04/16 at 21:00 Prednisone (Prednisone) 10 mg DAILY PO Last administered on 08/15/16 08:27; Admin Dose 10 MG; Start 08/05/16 at 09:00 Primidone (Mysoline) 50 mg BID PO Last administered on 08/15/16 08:27; Admin Dose 50 MG; Start 08/04/16 at 22:00 Ranitidine HCl (Zantac) 150 mg HS PO Last administered on 08/14/16 20:12; Admin Dose 150 MG; Start 08/04/16 at 21:00 Sotalol HCl (Betapace) 80 mg Q12 PO Last administered on 08/15/16 08:29; Admin Dose 80 MG; Start 08/04/16 at 21:00 Al Hydrox/Mg Hydrox/Simethicone (Mag-Al Plus) 30 ml Q4H PRN PO GASTROINTESTINAL UPSET Last administered on 08/11/16 21:24; Admin Dose 30 ML; Start 08/04/16 at 21:00 Miscellaneous Information 1 ea NOTE XX ; Start 08/04/16 at 21:30 Glucose (Glutose) 15 gm Q15M PRN PO DECREASED GLUCOSE; Start 08/04/16 at 21:30 Glucose (Glutose) 22.5 gm Q15M PRN PO DECREASED GLUCOSE; Start 08/04/16 at 21: 30 Dextrose (D50w Syringe) 25 ml Q15M PRN IV DECREASED GLUCOSE; Start 08/04/16 at 21:30 Dextrose (D50w Syringe) 50 ml Q15M PRN IV DECREASED GLUCOSE; Start 08/04/16 at 21:30 Glucagon (Glucagen) 1 mg Q15M PRN IM DECREASED GLUCOSE; Start 08/04/16 at 21:30 Glucose (Glutose) 15 gm Q15M PRN BUCCAL DECREASED GLUCOSE; Start 08/04/16 at 21 :30 Rifampin (Rifampin) 600 mg TuThSa PO Last administered on 08/13/16 12:50; Admin Dose 600 MG; Start 08/06/16 at 09:00 Duloxetine HCl (Cymbalta) 60 mg HS PO Last administered on 08/14/16 20:11; Admin Dose 60 MG; Start 08/12/16 at 21:00 Ibuprofen (Motrin) 200 mg TID PRN PO ARTHRITIS PAIN Last administered on 20:12; Admin Dose 200 MG; Start 08/13/16 at 13:00 Assessment/Plan Additional Assessment/Plan Rehab- Steroid myopathy. Continue rehab program, extend dc to meet goals Status post chronic obstructive pulmonary disease exacerbation and pneumonia, chronic bronchitis. Degenerative joint disease. Hypertension. Paroxysmal atrial fibrillation Diabetes mellitus type 2. Anemia of chronic disease. Hypothyroidism. REED FERNANDES MD Aug 15, 2016 09:44
[2016-08-15 13:27] VITALS: BP 124/63; PULSE 86; RESP 18
[2016-08-15] MEDS: AL HYDROX/MG HYDROX/SIMETH 30 ML CUP PO PRN ×2 (13:46→20:49)
[2016-08-15] MEDS: ACETAMINOPHEN 325 MG TAB PO PRN ×2 (15:41→20:49)
[2016-08-15 19:51] VITALS: BP 103/52; RESP 18
[2016-08-15] MEDS: DULOXETINE 30 MG CAP DR PO SCH (20:42)
[2016-08-15] MEDS: RANITIDINE 150 MG TAB PO SCH (20:43)
[2016-08-16] MEDS: LEVOTHYROXINE 50 MCG TAB PO SCH (06:49)
[2016-08-16] MEDS: PANTOPRAZOLE (EC) 40 MG TAB PO SCH (06:49)
[2016-08-16] MEDS: FUROSEMIDE 40 MG TAB PO SCH (06:49)
[2016-08-16] MEDS: Insulin NOVOLOG SS MILD Algorithm (SS with meals and bedtime) SC SCH ×3 (07:05→17:05)
[2016-08-16] MEDS: GLIMEPIRIDE 2 MG TAB PO SCH (07:45)
[2016-08-16 08:00] VITALS: BP 109/54; PULSE 72; RESP 20
[2016-08-16] MEDS: IPRATROPIUM (NEB) 0.5 MG/2.5 ML AMP INH SCH ×3 (08:00→20:27)
[2016-08-16] MEDS: LEVALBUTEROL (NEB) 0.63 MG/3 ML AMP INH SCH ×3 (08:00→20:27)
[2016-08-16] MEDS: POLYETHYLENE GLYCOL 17 GM PACKET PO SCH ×2 (08:17→09:00)
[2016-08-16] MEDS: DICLOFENAC SODIUM 1% GEL 100 GM TUBE TP SCH ×4 (08:17→20:49)
[2016-08-16] MEDS: NYSTATIN 30 GM POWDER BTL TOP SCH ×2 (08:17→20:49)
[2016-08-16] MEDS: CHOLECALCIFEROL 1,000 UNIT TAB PO SCH (08:17)
[2016-08-16] MEDS: POTASSIUM CHLORIDE (SR) 20 MEQ TAB PO SCH ×2 (08:18→20:50)
[2016-08-16] MEDS: ASCORBIC ACID 500 MG TAB PO SCH (08:18)
[2016-08-16] MEDS: METOPROLOL (XL) 100 MG TAB PO SCH (08:19)
[2016-08-16] MEDS: CYANOCOBALAMIN 500 MCG TAB PO SCH (08:20)
[2016-08-16] MEDS: PRIMIDONE 50 MG TAB PO SCH ×2 (08:21→20:50)
[2016-08-16] MEDS: GUAIFENESIN LA 600 MG TABSR PO SCH ×2 (08:21→20:49)
[2016-08-16] MEDS: ASPIRIN 81 MG TAB PO SCH (08:21)
[2016-08-16] MEDS: SOTALOL 80 MG TAB PO SCH ×2 (08:21→20:50)
[2016-08-16] MEDS: predniSONE 10 MG TAB PO SCH (08:22)
[2016-08-16] MEDS: ENOXAPARIN 40 MG/0.4 ML SYG SC SCH (08:23)
[2016-08-16 09:10] VITALS: BP 121/58; PULSE 81; RESP 20
[2016-08-16] MEDS: ACETAMINOPHEN 325 MG TAB PO PRN (09:10)
--- NOTE | 2016-08-16 09:47 | CONS ---
Date/Time of Note Date/Time of Note DATE: 08/16/16 TIME: 09:46 Consult Date/Type/Reason Admit Date/Time Aug 04, 2016 at 18:33 Subjective no new c/o. bp borderline low.d/w rn. PE: HEENT: Head is normocephalic. NECK: Supple. HEART: Regular rate. LUNGS: Show diminished breath sounds at the base. ABDOMEN: Soft, nontender to palpation without rebound or guarding. EXTREMITIES: Negative for clubbing, cyanosis. Trace edema. DERMATOLOGIC: No rashes. MUSCULOSKELETAL: No joint effusions. NEUROLOGIC: No change in exam. Objective Vital Signs Date Time Temp Pulse Resp B/P Pulse Ox O2 Delivery O2 Flow Rate FiO2 08/16/16 08:00 98.2 72 20 109/54 97 Nasal Cannula 1.0 Intake and Output 08/15/16 08/15/16 08/16/16 15:00 23:00 07:00 Intake Total 700 ml 1300 ml 360 ml Output Total 780 ml 600 ml Balance 700 ml 520 ml -240 ml Results/Medications Results 24 hrs Laboratory Tests Test 08/15/16 11:49 08/15/16 16:43 08/16/16 07:26 Bedside Glucose 205 79 133 Medications Current Medications Acetaminophen (Tylenol Tab) 650 mg Q6H PRN PO PAIN AND OR ELEVATED TEMP Last administered on 08/16/16 09:10; Admin Dose 650 MG; Start 08/04/16 at 21:00 Ascorbic Acid (Vitamin C) 1,000 mg DAILY PO Last administered on 08/16/16 08:18 ; Admin Dose 1,000 MG; Start 08/05/16 at 09:00 Aspirin (Aspirin) 81 mg DAILY PO Last administered on 08/16/16 08:21; Admin Dose 81 MG; Start 08/05/16 at 09:00 Azithromycin (Zithromax) 500 mg TuThSa@09 PO Last administered on 08/15/16 08: 25; Admin Dose 500 MG; Start 08/06/16 at 09:00 Cholecalciferol (Vitamin D) 1,000 unit DAILY PO Last administered on 08/16/16 08:17; Admin Dose 1,000 UNIT; Start 08/05/16 at 09:00 Cyanocobalamin (Vitamin B12) 1,000 mcg DAILY PO Last administered on 08/16/16 08:20; Admin Dose 1,000 MCG; Start 08/05/16 at 09:00 Diclofenac Sodium (Voltaren 1% Gel) 1 gm QID TP Last administered on 08/16/16 08:17; Admin Dose 1 GM; Start 08/04/16 at 21:00 Docusate Sodium (Colace) 100 mg Q8H PRN PO CONSTIPATION; Start 08/04/16 at 21: 00 Enoxaparin Sodium (Lovenox) 40 mg DAILY SC Last administered on 08/16/16 08:23 ; Admin Dose 40 MG; Start 08/05/16 at 09:00 Ethambutol HCl (Myambutol) 1,200 mg TuThSa@09 PO Last administered on 08/15/16 08:26; Admin Dose 1,200 MG; Start 08/06/16 at 09:00 Furosemide (Lasix) 40 mg DAILY@06 PO Last administered on 08/16/16 06:49; Admin Dose 40 MG; Start 08/05/16 at 06:00 Guaifenesin (Mucinex) 1,200 mg BID PO Last administered on 08/16/16 08:21; Admin Dose 1,200 MG; Start 08/04/16 at 21:00 Levothyroxine Sodium (Synthroid) 50 mcg DAILY@06 PO Last administered on 06:49; Admin Dose 50 MCG; Start 08/05/16 at 06:00 Metoprolol Succinate (Toprol Xl) 100 mg DAILY PO Last administered on 08/15/16 08:28; Admin Dose 100 MG; Start 08/05/16 at 09:00 Nystatin (Nystatin Powder) 1 applic BID TOP Last administered on 08/16/16 08:17 ; Admin Dose 1 APPLIC; Start 08/04/16 at 21:00 Polyethylene Glycol (Miralax) 17 gm DAILY PO Last administered on 08/15/16 08: 29; Admin Dose 17 GM; Start 08/05/16 at 09:00 Polyethylene Glycol (Miralax) 17 gm DAILY PRN PO CONSTIPATION; Start 08/04/16 at 21:00 Potassium Chloride (Klor-Con 20) 20 meq BID PO Last administered on 08/16/16 08 :18; Admin Dose 20 MEQ; Start 08/04/16 at 21:00 Prednisone (Prednisone) 10 mg DAILY PO Last administered on 08/16/16 08:22; Admin Dose 10 MG; Start 08/05/16 at 09:00 Primidone (Mysoline) 50 mg BID PO Last administered on 08/16/16 08:21; Admin Dose 50 MG; Start 08/04/16 at 22:00 Ranitidine HCl (Zantac) 150 mg HS PO Last administered on 08/15/16 20:43; Admin Dose 150 MG; Start 08/04/16 at 21:00 Sotalol HCl (Betapace) 80 mg Q12 PO Last administered on 08/15/16 20:43; Admin Dose 80 MG; Start 08/04/16 at 21:00 Al Hydrox/Mg Hydrox/Simethicone (Mag-Al Plus) 30 ml Q4H PRN PO GASTROINTESTINAL UPSET Last administered on 08/15/16 20:49; Admin Dose 30 ML; Start 08/04/16 at 21:00 Miscellaneous Information 1 ea NOTE XX ; Start 08/04/16 at 21:30 Glucose (Glutose) 15 gm Q15M PRN PO DECREASED GLUCOSE; Start 08/04/16 at 21:30 Glucose (Glutose) 22.5 gm Q15M PRN PO DECREASED GLUCOSE; Start 08/04/16 at 21: 30 Dextrose (D50w Syringe) 25 ml Q15M PRN IV DECREASED GLUCOSE; Start 08/04/16 at 21:30 Dextrose (D50w Syringe) 50 ml Q15M PRN IV DECREASED GLUCOSE; Start 08/04/16 at 21:30 Glucagon (Glucagen) 1 mg Q15M PRN IM DECREASED GLUCOSE; Start 08/04/16 at 21:30 Glucose (Glutose) 15 gm Q15M PRN BUCCAL DECREASED GLUCOSE; Start 08/04/16 at 21 :30 Rifampin (Rifampin) 600 mg TuThSa PO Last administered on 08/15/16 12:19; Admin Dose 600 MG; Start 08/06/16 at 09:00 Duloxetine HCl (Cymbalta) 60 mg HS PO Last administered on 08/15/16 20:42; Admin Dose 60 MG; Start 08/12/16 at 21:00 Ibuprofen (Motrin) 200 mg TID PRN PO ARTHRITIS PAIN Last administered on 20:12; Admin Dose 200 MG; Start 08/13/16 at 13:00 Assessment/Plan Chief Complaint/Hosp Course 1. Acute respiratory failure secondary to chronic obstructive pulmonary disease exacerbation. The patient is currently stable. Continue current medical management. 2. Mycobacterium avium infection. The patient is stable. Continue current antibiotic regimen. Follow up with infectious disease. 3. Neuropathy. Continue Cymbalta. 4. Diabetes. Continue current insulin regimen. 5. Hypertension. Continue current blood pressure regimen. 6. Anemia. Continue to monitor hemoglobin and hematocrit levels. 7. Paroxysmal atrial fibrillation, status post pacemaker. Continue to monitor. 8. Steroid-induced myopathy, improved. 9. Depression to Cymbalta. 10. Diastolic heart failure. Continue current medical management. 11. Hypothyroidism. Continue Synthroid. Problems: JOSELYN PAULA MD Aug 16, 2016 09:47
[2016-08-16] MEDS: AL HYDROX/MG HYDROX/SIMETH 30 ML CUP PO PRN ×2 (10:28→14:42)
[2016-08-16 19:13] VITALS: BP 117/58; RESP 18
[2016-08-16] MEDS: IBUPROFEN 200 MG TAB PO PRN (19:35)
[2016-08-16] MEDS: RANITIDINE 150 MG TAB PO SCH (20:49)
[2016-08-16] MEDS: DULOXETINE 30 MG CAP DR PO SCH (20:49)
[2016-08-17] MEDS: IPRATROPIUM (NEB) 0.5 MG/2.5 ML AMP INH SCH ×4 (02:00→21:23)
[2016-08-17] MEDS: LEVALBUTEROL (NEB) 0.63 MG/3 ML AMP INH SCH ×4 (02:00→21:24)
[2016-08-17] MEDS: PANTOPRAZOLE (EC) 40 MG TAB PO SCH (06:41)
[2016-08-17] MEDS: LEVOTHYROXINE 50 MCG TAB PO SCH (06:41)
[2016-08-17] MEDS: FUROSEMIDE 40 MG TAB PO SCH (06:41)
[2016-08-17] MEDS: Insulin NOVOLOG SS MILD Algorithm (SS with meals and bedtime) SC SCH ×3 (07:05→17:05)
[2016-08-17 07:23] LABS: ADD SCAN DIFF NO
[2016-08-17 07:30] VITALS: BP 157/60; RESP 20
[2016-08-17 07:36] LABS: BASOPHILS % 0.3 % (0.0-2.0); EOSINOPHILS # 0.2 10^3/ul (0.0-0.5); EOSINOPHILS % 3.3 % (0.0-7.0); HEMATOCRIT 29.9 % (37.0-47.0); HEMOGLOBIN 9.2 g/dl (12.0-16.0); LYMPHOCYTES # 2.4 10^3/ul (0.8-2.9); LYMPHOCYTES % 36.8 % (15.0-51.0); MEAN CORPUSCULAR HGB CONC 30.8 g/dl (32.0-37.0); MEAN CORPUSCULAR VOLUME 84.5 fl (82.0-101.0); MEAN PLATELET VOLUME 11.1 fl (7.4-10.4); MONOCYTES % 15.5 % (0.0-11.0); NEUTROPHIL # 2.9 10^3/ul (1.6-7.5); NEUTROPHILS % 43.5 % (39.0-77.0); PLATELET COUNT 322 10^3/UL (140-415); RED BLOOD COUNT 3.54 10^6/ul (4.20-5.40); RED CELL DISTRIBUTION WIDTH 19.8 % (11.5-14.5); WHITE BLOOD COUNT 6.6 10^3/ul (4.8-10.8)
[2016-08-17 07:48] LABS: POTASSIUM 5.1 mmol/L (3.5-5.1)
[2016-08-17 07:51] LABS: CREATININE 0.82 mg/dl (0.44-1.00)
[2016-08-17 07:52] LABS: CALCIUM 9.1 mg/dl (8.4-10.2); MAGNESIUM 2.4 mg/dl (1.7-2.5); PHOSPHORUS 3.4 mg/dl (2.5-4.9)
[2016-08-17] MEDS: CYANOCOBALAMIN 500 MCG TAB PO SCH (09:21)
[2016-08-17] MEDS: CHOLECALCIFEROL 1,000 UNIT TAB PO SCH (09:21)
[2016-08-17] MEDS: GLIMEPIRIDE 2 MG TAB PO SCH (09:21)
[2016-08-17] MEDS: PRIMIDONE 50 MG TAB PO SCH ×2 (09:22→21:06)
[2016-08-17] MEDS: predniSONE 10 MG TAB PO SCH (09:22)
[2016-08-17] MEDS: GUAIFENESIN LA 600 MG TABSR PO SCH ×2 (09:22→21:06)
[2016-08-17] MEDS: ASCORBIC ACID 500 MG TAB PO SCH (09:22)
[2016-08-17] MEDS: ASPIRIN 81 MG TAB PO SCH (09:23)
[2016-08-17] MEDS: SOTALOL 80 MG TAB PO SCH ×2 (09:23→21:05)
[2016-08-17] MEDS: POLYETHYLENE GLYCOL 17 GM PACKET PO SCH (09:23)
[2016-08-17] MEDS: NYSTATIN 30 GM POWDER BTL TOP SCH ×2 (09:23→21:08)
[2016-08-17] MEDS: DICLOFENAC SODIUM 1% GEL 100 GM TUBE TP SCH ×4 (09:24→21:08)
--- NOTE | 2016-08-17 09:25 | PN ---
DATE: 08/17/2016 SUBJECTIVE: The patient is stable, no acute events overnight. The patient is complaining of some m ild shortness of breath. No other events noted. OBJECTIVE: VITAL SIGNS: Blood pressure 157/60, respirations 20, pulse 72, temperature 97.8. HEENT: Head is normocephalic. NECK: Supple. HEART: Regular rate. LUNGS: Show diminished breath sounds at the base. ABDOMEN: Soft, nontender to palpation. No rebound or guarding. EXTREMITIES: Negative for clubbing, cyanosis, no edema. DERMATOLOGIC: No rashes. MUSCULOSKELETAL: No joint effusions. NEUROLOGIC: No change in exam. MEDICATIONS: The patient's medications have been reviewed. LABORATORY DATA: Shows sodium 137, potassium 5.1, BUN 22, creatinine 0.82. White count 6.6, hemogl obin 9.2, hematocrit is 29.9, platelet count is 322,000. ASSESSMENT AND PLAN: 1. Acute respiratory failure secondary to chronic obstructive pulmonary disease exacerbation. The patient is currently stable. Continue medical management. 2. Mycobacterium avium infection. Currently stable. Continue current antibiotic regimen. 3. Neuropathy. Continue Cymbalta. 4. Diabetes. Continue current insulin regimen. 5. Hypertension. Continue current blood pressure regimen, adjust as needed. 6. Anemia. Continue to monitor hemoglobin and hematocrit levels. 7. Paroxysmal atrial fibrillation, status post pacemaker. Continue to monitor. 8. Steroid-induced myopathy, improving. 9. Depression. Continue Cymbalta. 10. Diastolic heart failure, stable. Continue medical management. 11. Hypothyroidism. Continue Synthroid. Dictated By: BAILEY JEAN/BENJAMIN Conf#: [id number] DID#: [id number]
[2016-08-17] MEDS: POTASSIUM CHLORIDE (SR) 20 MEQ TAB PO SCH ×2 (09:30→21:04)
[2016-08-17] MEDS: ENOXAPARIN 40 MG/0.4 ML SYG SC SCH (09:30)
--- NOTE | 2016-08-17 11:31 | CONS ---
Date/Time of Note Date/Time of Note DATE: 08/17/16 TIME: 11:30 Consult Date/Type/Reason Admit Date/Time Aug 04, 2016 at 18:33 Subjective stomach discomfort Objective Vital Signs Date Time Temp Pulse Resp B/P Pulse Ox O2 Delivery O2 Flow Rate FiO2 08/17/16 07:30 97.8 72 20 157/60 99 08/17/16 07:27 21 08/16/16 20:27 1.0 08/16/16 20:27 Nasal Cannula Intake and Output 08/16/16 08/16/16 08/17/16 15:00 23:00 07:00 Intake Total 320 ml 360 ml Balance 320 ml 360 ml INTERDISCIPLINARY TEAM CONFERENCE BOWEL- Cont BLADDER-Cont SKIN- intact OT- DRESSING-sba BATHING-sba TOILETING-sba PT- BED MOBILITY-sba TRANSFERS-sba AMBULATION-sba 150 feet A/P- Interdisciplinary team conference held today. Please see interdisciplinary sheet. Working toward d.c. on 08/18 with post discharge follow up of physical therapy, occupational therapy. Results/Medications Result Diagram: 08/17/16 0645 08/17/16 0645 Results 24 hrs Laboratory Tests Test 08/16/16 17:16 08/17/16 06:45 08/17/16 07:30 Bedside Glucose 137 139 Anion Gap 11 Basophils # 0.0 Basophils % 0.3 Blood Urea Nitrogen 22 H Calcium Level 9.1 Carbon Dioxide Level 35 H Chloride Level 96 L Creatinine 0.82 Eosinophils # 0.2 Eosinophils % 3.3 Glucose Level 118 Hematocrit 29.9 L Hemoglobin 9.2 L Lymphocytes # 2.4 Lymphocytes % 36.8 Magnesium Level 2.4 Mean Corpuscular Hemoglobin 26.0 L Mean Corpuscular Hemoglobin Concent 30.8 L Mean Corpuscular Volume 84.5 Mean Platelet Volume 11.1 H Monocytes # 1.0 H Monocytes % 15.5 H Neutrophils # 2.9 Neutrophils % 43.5 Nucleated Red Blood Cells # 0.0 Nucleated Red Blood Cells % 0.0 Phosphorus Level 3.4 Platelet Count 322 Potassium Level 5.1 Red Blood Count 3.54 L Red Cell Distribution Width 19.8 H Sodium Level 137 White Blood Count 6.6 # Medications Current Medications Acetaminophen (Tylenol Tab) 650 mg Q6H PRN PO PAIN AND OR ELEVATED TEMP Last administered on 08/16/16 09:10; Admin Dose 650 MG; Start 08/04/16 at 21:00 Ascorbic Acid (Vitamin C) 1,000 mg DAILY PO Last administered on 08/17/16 09:22 ; Admin Dose 1,000 MG; Start 08/05/16 at 09:00 Aspirin (Aspirin) 81 mg DAILY PO Last administered on 08/17/16 09:23; Admin Dose 81 MG; Start 08/05/16 at 09:00 Azithromycin (Zithromax) 500 mg TuThSa@09 PO Last administered on 08/15/16 08: 25; Admin Dose 500 MG; Start 08/06/16 at 09:00 Cholecalciferol (Vitamin D) 1,000 unit DAILY PO Last administered on 08/17/16 09:21; Admin Dose 1,000 UNIT; Start 08/05/16 at 09:00 Cyanocobalamin (Vitamin B12) 1,000 mcg DAILY PO Last administered on 08/17/16 09:21; Admin Dose 1,000 MCG; Start 08/05/16 at 09:00 Diclofenac Sodium (Voltaren 1% Gel) 1 gm QID TP Last administered on 08/17/16 09:24; Admin Dose 1 GM; Start 08/04/16 at 21:00 Docusate Sodium (Colace) 100 mg Q8H PRN PO CONSTIPATION; Start 08/04/16 at 21: 00 Enoxaparin Sodium (Lovenox) 40 mg DAILY SC Last administered on 08/17/16 09:30 ; Admin Dose 40 MG; Start 08/05/16 at 09:00 Ethambutol HCl (Myambutol) 1,200 mg TuThSa@09 PO Last administered on 08/15/16 08:26; Admin Dose 1,200 MG; Start 08/06/16 at 09:00 Furosemide (Lasix) 40 mg DAILY@06 PO Last administered on 08/17/16 06:41; Admin Dose 40 MG; Start 08/05/16 at 06:00 Guaifenesin (Mucinex) 1,200 mg BID PO Last administered on 08/17/16 09:22; Admin Dose 1,200 MG; Start 08/04/16 at 21:00 Levothyroxine Sodium (Synthroid) 50 mcg DAILY@06 PO Last administered on 06:41; Admin Dose 50 MCG; Start 08/05/16 at 06:00 Nystatin (Nystatin Powder) 1 applic BID TOP Last administered on 08/17/16 09:23 ; Admin Dose 1 APPLIC; Start 08/04/16 at 21:00 Polyethylene Glycol (Miralax) 17 gm DAILY PO Last administered on 08/17/16 09: 23; Admin Dose 17 GM; Start 08/05/16 at 09:00 Polyethylene Glycol (Miralax) 17 gm DAILY PRN PO CONSTIPATION; Start 08/04/16 at 21:00 Potassium Chloride (Klor-Con 20) 20 meq BID PO Last administered on 08/17/16 09 :30; Admin Dose 20 MEQ; Start 08/04/16 at 21:00 Prednisone (Prednisone) 10 mg DAILY PO Last administered on 08/17/16 09:22; Admin Dose 10 MG; Start 08/05/16 at 09:00 Primidone (Mysoline) 50 mg BID PO Last administered on 08/17/16 09:22; Admin Dose 50 MG; Start 08/04/16 at 22:00 Ranitidine HCl (Zantac) 150 mg HS PO Last administered on 08/16/16 20:49; Admin Dose 150 MG; Start 08/04/16 at 21:00 Sotalol HCl (Betapace) 80 mg Q12 PO Last administered on 08/17/16 09:23; Admin Dose 80 MG; Start 08/04/16 at 21:00 Al Hydrox/Mg Hydrox/Simethicone (Mag-Al Plus) 30 ml Q4H PRN PO GASTROINTESTINAL UPSET Last administered on 08/16/16 14:42; Admin Dose 30 ML; Start 08/04/16 at 21:00 Miscellaneous Information 1 ea NOTE XX ; Start 08/04/16 at 21:30 Glucose (Glutose) 15 gm Q15M PRN PO DECREASED GLUCOSE; Start 08/04/16 at 21:30 Glucose (Glutose) 22.5 gm Q15M PRN PO DECREASED GLUCOSE; Start 08/04/16 at 21: 30 Dextrose (D50w Syringe) 25 ml Q15M PRN IV DECREASED GLUCOSE; Start 08/04/16 at 21:30 Dextrose (D50w Syringe) 50 ml Q15M PRN IV DECREASED GLUCOSE; Start 08/04/16 at 21:30 Glucagon (Glucagen) 1 mg Q15M PRN IM DECREASED GLUCOSE; Start 08/04/16 at 21:30 Glucose (Glutose) 15 gm Q15M PRN BUCCAL DECREASED GLUCOSE; Start 08/04/16 at 21 :30 Rifampin (Rifampin) 600 mg TuThSa PO Last administered on 08/15/16 12:19; Admin Dose 600 MG; Start 08/06/16 at 09:00 Duloxetine HCl (Cymbalta) 60 mg HS PO Last administered on 08/16/16 20:49; Admin Dose 60 MG; Start 08/12/16 at 21:00 Ibuprofen (Motrin) 200 mg TID PRN PO ARTHRITIS PAIN Last administered on 19:35; Admin Dose 200 MG; Start 08/13/16 at 13:00 REED FERNANDES MD Aug 17, 2016 11:30
[2016-08-17 19:50] VITALS: BP 113/51; PULSE 71
[2016-08-17] MEDS: ACETAMINOPHEN 325 MG TAB PO PRN (21:06)
[2016-08-17] MEDS: DULOXETINE 30 MG CAP DR PO SCH (21:06)
[2016-08-17] MEDS: RANITIDINE 150 MG TAB PO SCH (21:06)
[2016-08-18] MEDS: IPRATROPIUM (NEB) 0.5 MG/2.5 ML AMP INH SCH ×3 (02:00→14:00)
[2016-08-18] MEDS: LEVALBUTEROL (NEB) 0.63 MG/3 ML AMP INH SCH ×3 (02:00→14:00)
[2016-08-18] MEDS: FUROSEMIDE 40 MG TAB PO SCH (05:58)
[2016-08-18] MEDS: LEVOTHYROXINE 50 MCG TAB PO SCH (05:58)
[2016-08-18] MEDS: PANTOPRAZOLE (EC) 40 MG TAB PO SCH (05:58)
[2016-08-18 06:11] VITALS: BP 108/57; PULSE 83
--- NOTE | 2016-08-18 06:27 | PN ---
DATE: 08/17/2016 CARDIOLOGY FOLLOWUP SUBJECTIVE: The patient's shortness of breath has improved. No chest pain or pressure. No palpita tion. MEDICATIONS: Reviewed. PHYSICAL EXAMINATION: VITAL SIGNS: Temperature 97.8, heart rate of 72, blood pressure of 157/60, respiration rate of 20, saturating 99%. HEENT: Normocephalic, atraumatic. Elderly female in no acute distress. Pupils are equal. CARDIOVASCULAR: Regular rate and rhythm, systolic murmur. PULMONARY: With no wheezes. GASTROINTESTINAL: Soft. EXTREMITIES: With trivial edema. NEUROLOGIC: Awake, responds appropriately. PSYCHIATRIC: Appears to be calm but anxious. LABORATORY: WBC of 6.6, hemoglobin 9.2, platelets of 322. Sodium 137, potassium 5.1, BUN of 22, cr eatinine 0.82, glucose 118. ASSESSMENT AND PLAN: 1. Atrial fibrillation and flutter, paroxysmal, currently stable. 2. History of biventricular pacemaker placement. 3. Chronic obstructive pulmonary disease. 4. History of MAC infection. 5. Diabetes. 6. Myopathy and debility, on rehabilitation. 7. History of thyroid disorder. 8. Anemia. RECOMMENDATIONS: We will continue with the current cardiac care. Patient on aspirin but not antico agulated. We are concerned about bleeding. Chest pain has resolved. 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 Continue with the [facility]iam [facility]. Dictated By: KHLOE DAVIS MD AV/BENJAMIN Conf#: [id number] DID#: [id number]
[2016-08-18] MEDS: Insulin NOVOLOG SS MILD Algorithm (SS with meals and bedtime) SC SCH ×2 (07:05→12:34)
[2016-08-18 07:57] VITALS: BP 130/62; RESP 18
[2016-08-18] MEDS: DICLOFENAC SODIUM 1% GEL 100 GM TUBE TP SCH ×2 (08:53→13:00)
[2016-08-18] MEDS: GUAIFENESIN LA 600 MG TABSR PO SCH (08:54)
[2016-08-18] MEDS: GLIMEPIRIDE 2 MG TAB PO SCH (08:54)
[2016-08-18] MEDS: IBUPROFEN 200 MG TAB PO PRN (08:54)
[2016-08-18] MEDS: CHOLECALCIFEROL 1,000 UNIT TAB PO SCH (08:55)
[2016-08-18] MEDS: ASCORBIC ACID 500 MG TAB PO SCH (08:55)
[2016-08-18] MEDS: predniSONE 10 MG TAB PO SCH (08:56)
[2016-08-18] MEDS: ASPIRIN 81 MG TAB PO SCH (08:56)
[2016-08-18] MEDS: PRIMIDONE 50 MG TAB PO SCH (08:56)
[2016-08-18] MEDS: CYANOCOBALAMIN 500 MCG TAB PO SCH (08:56)
--- NOTE | 2016-08-18 08:57 | PN ---
DATE: 08/18/2016 SUBJECTIVE: The patient is stable, no acute events overnight. No fevers, chills, nausea, vomiting. OBJECTIVE: VITAL SIGNS: Blood pressure 130/62, respirations 18, pulse 73, temperature 97.6. HEENT: Head is normocephalic. NECK: Supple. HEART: Regular rate. LUNGS: Show diminished breath sounds at the base. ABDOMEN: Soft, nontender to palpation. No rebound or guarding. EXTREMITIES: Negative for clubbing, cyanosis, no edema. DERMATOLOGIC: No rashes. MUSCULOSKELETAL: No joint effusions. NEUROLOGIC: No change in exam. MEDICATIONS: Have been reviewed. LABORATORY DATA: Has been reviewed. ASSESSMENT AND PLAN: 1. Acute respiratory failure secondary to chronic obstructive pulmonary disease exacerbation, the p atient currently stable. Continue medical management. 2. Mycobacterium avium infection, stable. Continue current antibiotic regimen. Follow up with inf ectious disease. 3. Neuropathy. Continue Cymbalta. 4. Diabetes. Continue current insulin regimen. 5. Hypertension. Continue current blood pressure regimen. 6. Anemia. Continue to monitor H and H levels. 7. Paroxysmal atrial fibrillation, status post pacemaker, currently stable. 8. Steroid-induced myopathy, improving. 9. Depression. Continue Cymbalta. 10. Diastolic heart failure, stable. Continue medical management. 11. Hypothyroidism. Continue Synthroid. Dictated By: BAILEY JEAN/BENJAMIN Conf#: [id number] DID#: [id number]
[2016-08-18] MEDS: POTASSIUM CHLORIDE (SR) 20 MEQ TAB PO SCH (08:58)
[2016-08-18] MEDS: SOTALOL 80 MG TAB PO SCH (08:59)
[2016-08-18] MEDS: POLYETHYLENE GLYCOL 17 GM PACKET PO SCH (09:00)
[2016-08-18] MEDS: ENOXAPARIN 40 MG/0.4 ML SYG SC SCH (09:00)
[2016-08-18] MEDS: NYSTATIN 30 GM POWDER BTL TOP SCH (09:01)
[2016-08-18] MEDS: RIFAMPIN 300 MG CAP PO SCH (11:38)
[2016-08-18] MEDS: AZITHROMYCIN 250 MG TAB PO SCH (11:38)
[2016-08-18] MEDS: ETHAMBUTOL 400 MG TAB PO SCH (11:39)
--- NOTE | 2016-08-18 13:39 | PN ---
DATE: 08/18/2016 CARDIOLOGY FOLLOWUP SUBJECTIVE: No new cardiac events, no chest pain or pressure. Blood pressure has remained stable. MEDICATIONS: Reviewed. PHYSICAL EXAMINATION: VITAL SIGNS: Temperature 97.6, heart rate of 88, blood pressure 130/60, respiration rate of 18. HEENT: Normocephalic, atraumatic. Pupils are equal. CARDIOVASCULAR: Regular rate and rhythm. PULMONARY: No wheezes anteriorly. GASTROINTESTINAL: Soft, nontender. EXTREMITIES: With trivial edema. NEUROLOGIC: Awake, responds appropriately. LABORATORY: Glucose 175. ASSESSMENT AND PLAN: 1. Paroxysmal atrial fibrillation, currently remains stable. 2. History of biventricular pacemaker placement. 3. Chronic obstructive pulmonary disease. 4. History of MAC infection. 5. Diabetes. RECOMMENDATIONS: We will continue with the current cardiac care. Physical therapy and rehabilitati on. Dictated By: KHLOE DAVIS MD AV/BENJAMIN Conf#: [id number] DID#: [id number] CC: BAILEY WICK DO;*EndCC*
== END 2016-08-18 13:45 | disposition home health service (06) | DRG 91 ==
LOC: VRC 18:33
PROVIDERS: ADMIT Internal Medicine Nephrology; ATTEND Internal Medicine Nephrology
DX: G72.0 Drug-induced myopathy (principal); J18.9 Pneumonia, unspecified organism; J96.00 Acute respiratory failure, unspecified whether with hypoxia or hypercapnia; I11.0 Hypertensive heart disease with heart failure; A31.0 Pulmonary mycobacterial infection; I48.0 Paroxysmal atrial fibrillation; E11.8 Type 2 diabetes mellitus with unspecified complications; I50.32 Chronic diastolic (congestive) heart failure; T38.0X5A Adverse effect of glucocorticoids and synthetic analogues, initial encounter; Y92.9 Unspecified place or not applicable; J42 Unspecified chronic bronchitis; Z79.4 Long term (current) use of insulin; D63.8 Anemia in other chronic diseases classified elsewhere; E03.9 Hypothyroidism, unspecified; Z74.09 Other reduced mobility; Z95.0 Presence of cardiac pacemaker; F32.9 Major depressive disorder, single episode, unspecified; R07.89 Other chest pain
CPT/HCPCS: 71010; 80048; 80053; 81001; 81003; 82550; 82553; 82962; 83735; 84100; 84439; 84443; 84484; 85025; 87081; 87086; 93005; 93306; 94640; 94664; 95852; 97110; 97112; 97116; 97150; 97163; 97167; 97530; 97535; J1650; J1815; J7512